=== PATIENT | female | born 1955 | race Caucasian/White ===

== ENCOUNTER 2016-11-02 18:57 | Inpatient (IN) | payer MEDICAID ==
[~2016-11-02] VITALS: Ht 149.9 cm; Wt 100.9 kg
[2016-11-02 19:42] LABS: BASOPHILS 0.2 % (0.0-2.0); EOSINOPHILS 1.6 % (0-7); HEMATOCRIT 37.1 % (36.0-48.0); HEMOGLOBIN 11.8 g/dL (12-16); IMMATURE GRANULOCYTES 0.4 % (0-5); MCH 27.3 pg (26.0-34.0); MCHC 31.8 g/dL (31.0-37.0); MCV 85.7 fL (80.0-100.0); MEAN PLATELET VOLUME 12.4 fL (7.4-10.4); MONOCYTES 8.1 % (2-11); NEUTROPHILS 71.7 % (40-80); PLATELET COUNT 218 10x3/uL (130-400); RBC 4.33 10x6/uL (4.00-5.40); RDW 15.3 % (11.5-14.5); WBC 10.2 10x3/uL (4.8-10.8)
[2016-11-02 19:56] LABS: ALBUMIN 4.1 g/dL (3.4-5.0); ALKALINE PHOSPHATASE 160 U/L (46-116); ALT (SGPT) 20 U/L (10-68); BILIRUBIN - TOTAL 0.64 mg/dL (0.2-1.3); CALC OSMOLALITY 285 mosm/kg (275-300); CALCIUM 8.6 mg/dL (8.5-10.1); CHLORIDE - SERUM 100 mmol/L (98-107); CREATININE - SERUM 0.9 mg/dL (0.6-1.3); GLUCOSE 189 mg/dL (74-106); POTASSIUM - SERUM 3.9 mmol/L (3.5-5.1); SODIUM 139 mmol/L (136-145); UREA NITROGEN 21 mg/dL (7-18); eGFR NON AFRICAN AMERICAN 67 mL/min (90-120)
[2016-11-02 20:07] LABS: MAGNESIUM - SERUM 2.4 mg/dL (1.8-2.4); PHOSPHOROUS 3.3 mg/dL (2.5-4.9); PRO BNP 643 pg/mL (0-125)
[2016-11-02 20:08] LABS: TROPONIN-I < 0.017 ng/mL (0.000-0.060)
[2016-11-02 23:03] LABS: APPEARANCE CLEAR (CLEAR); BILIRUBIN NEGATIVE (NEGATIVE); COLOR YELLOW (YELLOW); GLUCOSE NEGATIVE (NEGATIVE); KETONE NEGATIVE (NEGATIVE); LEUKOCYTE ESTERASE 1+ (NEGATIVE); NITRITE NEGATIVE (NEGATIVE); PROTEIN NEGATIVE (NEGATIVE); UROBILINOGEN NORMAL (NORMAL)
[2016-11-02 23:04] LABS: BACTERIA NONE SEEN /hpf (NONE SEEN); EPITHELIAL CELLS 0-5 /hpf (0-5); RED CELLS - URINE NONE SEEN /hpf (0-5)
--- NOTE | 2016-11-02 23:16 | NUR ---
PT ARRIVED VIA STRETCHER WITH DX OF ASTHMA EXACERBATION. PT STATES FEELING BETTER. TO BR AT THIS TIME. WILL CONTINUE TO MONITOR.
[2016-11-02 23:31] VITALS: BP 177/68; Ht 149.9 cm; Wt 100.9 kg
[2016-11-02] MEDS ORDERED: LIPITOR20 MG PO (23:50)
[2016-11-02] MEDS ORDERED: HYDROCHLOROTHIA25 MG PO (23:50)
[2016-11-02] MEDS ORDERED: KLOR-CON M2020 MEQ PO (23:51)
[2016-11-02] MEDS ORDERED: LASIX40 MG PO (23:51)
[2016-11-02] MEDS ORDERED: COREG 3.1253.125 MG PO (23:52)
[2016-11-02] MEDS ORDERED: ZESTRIL40 MG PO (23:52)
[2016-11-02] MEDS ORDERED: NOVOLOG100 U/M1 SC (23:53)
[2016-11-02] MEDS ORDERED: MOBIC7.5 MG PO (23:54)
[2016-11-02] MEDS ORDERED: GLUCOPHAGE1000 MG PO (23:54)
[2016-11-02 23:55] VITALS: BP 177/68
[2016-11-02] MEDS ORDERED: NEURONTIN600 MG PO (23:55)
[2016-11-02] MEDS ORDERED: LANTUS SOL100 UNIT/1 SC (23:56)
[2016-11-02] MEDS ORDERED: ACCURETIC 20-251 TAB PO (23:57)
--- NOTE | 2016-11-03 00:06 | NUR ---
ADMISSION ASSESSMENT, HISTORY AND HOME MED LIST COMPELTED. PT STATES HAS MINOR CP WITH COUGH. IV TO LFA WITH NS AT 75CC/HR. WILL CONTINUE TO MONITOR. SR UP X2, CALL LIGHT WITHIN REACH.
[2016-11-03 02:15] LABS: CKMB 0.3 U/L (0.0-3.6); CREATINE KINASE 38 UL (21-215)
[2016-11-03 02:28] LABS: TROPONIN-I < 0.017 ng/mL (0.000-0.060)
--- NOTE | 2016-11-03 02:28 | NUR ---
PT RESTING WITH EYES CLOSED. RESP EVEN AND REGULAR. SR UP X2, CALL LIGHT WITHIN REACH.
[2016-11-03 04:00] VITALS: BP 145/70
--- NOTE | 2016-11-03 04:20 | NUR ---
PT AWAKE; STATES CHEST IS SORE AFTER COUGHING. WILL CONTINUE TO MONITOR.
--- NOTE | 2016-11-03 06:20 | NUR ---
VSS. PT DENIED ANYTHING EXCEPT CHEST SORENESS WITH COUGHING. AM FSBS 327. NEEDS MET; WILL CONTINUE TO MONITOR.
[2016-11-03 07:34] VITALS: BP 198/74
[2016-11-03 07:53] LABS: CKMB 0.2 U/L (0.0-3.6); CREATINE KINASE 38 UL (21-215)
[2016-11-03 07:54] LABS: TROPONIN-I < 0.017 ng/mL (0.000-0.060)
--- NOTE | 2016-11-03 11:00 | NUR ---
ALERT AND ORIENTED X4. AT BEDSIDE. SHOWER AND LINEN CHANGE COMPLETE. RT ANKLE CUT FROM SHAVING. CLEAN WOUND AND DRESSING PLACED. DENIES PAIN. SOB TREATED WITH 2L NC. LT FA IV INFUSING NS @ 75mL/HR. CONTINUE PLAN OF CARE. BED LOCKED AND LOW. CALL LIGHT IN REACH. TWO SIDERAILS UP.
[2016-11-03 11:36] VITALS: BP 156/65
[2016-11-03 11:44] LABS: T4 THYROXINE 11.2 ug/dL (4.7-13.3); THYROID STIMULATING HORMONE 0.48 uIU/mL (0.36-3.74)
[2016-11-03 14:00] LABS: CKMB 0.7 U/L (0.0-3.6); CREATINE KINASE 77 UL (21-215)
[2016-11-03 14:01] LABS: TROPONIN-I < 0.017 ng/mL (0.000-0.060)
[2016-11-03 15:32] VITALS: BP 149/74
--- NOTE | 2016-11-03 16:37 | NUR ---
ALERT AND ORIENTED X4. COMPLAINS OF FEELING DIZZY. O2 98% RA. FAMILY AT BEDSIDE. INSTRUCT TO CALL FOR HELP WHEN OOB TO PREVENT FALLING. FSBS 460 TREAT WITH 20 UNITS OF INSULIN. ORDER LAB GLUCOSE PER PROTOCOL. CONTINUE TO MONITOR. CONTINUE PLAN OF CARE AND SAFETY PRECAUTIONS.
--- NOTE | 2016-11-03 17:40 | NUR ---
SPOKE WITH REGARDING SERUM GLUCOSE FROM LAB OF 456. SOLUMEDROL IV CHANGED FROM 125mg TO 60mg PER . RECHECK FSBS IN 1 HOUR. RESTING IN BED. FAMILY AT BEDSIDE. DENIES SOB. COMPLAINS OF DIZZINESS WHEN SITTING UP. ENCOURAGE LAYING IN BED TO REST. CONTINUE TO MONITOR. CONTINUE PLAN OF CARE AND SAFETY PRECAUTIONS.
--- NOTE | 2016-11-03 18:37 | NUR ---
FSBS RECHECK READS 434. 20 UNITS OF HUMALOG ADMINISTERED PER 'S ORDER VIA TELEPHONE. CONTINUE PLAN OF CARE. PREPARE SHIFT CHANGE REPORT.
[2016-11-03 20:02] VITALS: BP 145/65
--- NOTE | 2016-11-03 21:37 | NUR ---
INITIAL ROUNDS COMPLETED AT 1910 HRS. FAMILY AT BEDSIDE. PT TEARFUL REGARDING HER OWN HEALTH AND FAMILY DYNAMICS. EMOTIONAL SUPPORT GIVEN. ASSESSMENT COMPLETED AT 1950. VSS. IV TO LFA WITH NS AT 75CC/HR. IV PATENT. LUNGS DIMINISHED IN BASES BILAT. TRACE PEDAL EDEMA NOTED. PM FSBS 363. HUMALOG 16 UNITS GIVEN SUB-Q TO UPPER R ARM. SCHEDULED LANTUS AND PM PO MEDS GIVEN. NORCO GIVEN FOR C/O CHEST SORENESS. PM SNACK SERVED. PT CURRENTLY WATCHING TV. WILL CONTINUE TO MONITOR.
--- NOTE | 2016-11-03 22:46 | NUR ---
PT AWAKE; WORRIED ABOUT FAMILY MATTERS. EMOTIONAL SUPPORT GIVEN. WILL CONTINUE TO MONITOR.
--- NOTE | 2016-11-04 00:08 | NUR ---
PT AWAKE; CONTINUES TO BE UPSET ABOUT FAMILY ISSUES. EMOTIONAL SUPPORT GIVEN. WILL CONTINUE TO MONITOR.
[2016-11-04 01:24] VITALS: BP 103/40
--- NOTE | 2016-11-04 02:29 | NUR ---
PT RESTING WITH EYES CLOSED. RESP EVEN AND REGULAR. SR UP X2, CALL LIGHT WITHIN REACH.
--- NOTE | 2016-11-04 04:31 | NUR ---
PT BLEEDING POST AM LAB DRAWN. PRESSURE DRESSING APPLIED. FLOOR CLEANED AND BED LINENS CHANGED. WILL CONTINUE TO MONITOR.
[2016-11-04 04:41] LABS: BASOPHILS 0 % (0.0-2.0); EOSINOPHILS 0 % (0-7); HEMATOCRIT 33.9 % (36.0-48.0); HEMOGLOBIN 10.7 g/dL (12-16); IMMATURE GRANULOCYTES 0.3 % (0-5); LYMPHOCYTES 7.7 % (15-50); MCH 26.8 pg (26.0-34.0); MCHC 31.6 g/dL (31.0-37.0); MEAN PLATELET VOLUME 12.2 fL (7.4-10.4); MONOCYTES 3.6 % (2-11); NEUTROPHILS 88.4 % (40-80); PLATELET COUNT 191 10x3/uL (130-400); RBC 3.99 10x6/uL (4.00-5.40); RDW 15.6 % (11.5-14.5); WBC 11.8 10x3/uL (4.8-10.8)
[2016-11-04 04:55] LABS: CALCIUM 7.7 mg/dL (8.5-10.1); CARBON DIOXIDE 28.8 mmol/L (21.0-32.0); CHLORIDE - SERUM 103 mmol/L (98-107); CREATININE - SERUM 0.8 mg/dL (0.6-1.3); POTASSIUM - SERUM 4.3 mmol/L (3.5-5.1); SODIUM 139 mmol/L (136-145); eGFR NON AFRICAN AMERICAN 77 mL/min (90-120)
[2016-11-04 04:56] LABS: CALC OSMOLALITY 293 mosm/kg (275-300); GLUCOSE 275 mg/dL (74-106); UREA NITROGEN 30 mg/dL (7-18)
--- NOTE | 2016-11-04 06:01 | NUR ---
VSS THROUGHOUT NIGHT. PT LESS ANXIOUS THIS AM. NEEDS MET; WILL CONTINUE TO MONITOR.
[2016-11-04 06:26] VITALS: BP 140/69
--- NOTE | 2016-11-04 07:00 | HP ---
PATIENT: NGA LEWIS MEDICAL RECORD: [id number] ACCOUNT: [id number] LOCATION:[address] : [birth year] ADMISSION DATE: 11/03/16 HISTORY AND PHYSICAL EXAMINATION DATE OF ADMISSION: 11/02/2016 HISTORY OF PRESENT ILLNESS: The patient is a 61-year-old female, who states for the last 2-3 weeks, she has had increasing shortness of breath. She presented to the Emergency Room where it was felt that the patient should be admitted. The patient was admitted to my service on an unassigned medicine. PAST MEDICAL HISTORY: Significant that she has had morbid obesity. She has had a hysterectomy. She has had a cholecystectomy. She has had fibromyalgia. History of diabetes mellitus, atypical chest pain. She has had a history of urinary tract infection, osteoarthritis of the knees, history of depression. FAMILY HISTORY: Noncontributory. ALLERGIES: DARVOCET WELL MORPHINE. MEDICATIONS: She was on Humalog subcutaneous solution, metformin 1000 mg p.o. b.i.d., Neurontin 600 one p.o. b.i.d., Lasix 40 mg once daily, lisinopril 40 mg daily, hydrochlorothiazide 25 mg 1 p.o. q. day, meloxicam 15 mg once a day, Accuretic 25/21 p.o. q. day. HABITS: None. REVIEW OF SYSTEMS: CONSTITUTIONAL: She denies any headaches, seizures, or syncope. She denied change in visual or auditory acuity. PULMONARY: She has reported having cough, congestion, yellow sputum production. CARDIOVASCULAR: She has had no chest pain, palpitation, PND or orthopnea. GASTROINTESTINAL: No chronic nausea, vomiting, melena or hematochezia. GENITOURINARY: No urgency, frequency, or dysuria. PHYSICAL EXAMINATION: GENERAL: She is a morbidly obese female, whose BMI is 43, her weight is 213. VITAL SIGNS: Her temperature is 97, her pulse 66, respirations 20, 93% on room air, blood pressure 141/69. HEENT: Head is normocephalic. No lesions. Ears: TMs clear. Eyes: Pupils are equal, round and reactive to light. Her extraocular movements intact. Nasal cavity, oral cavity and oropharynx clear. NECK: Supple. There is no adenopathy. HEART: Has a regular rate. LUNGS: She has some decreased breath sounds in all monhaan. ABDOMEN: Soft, bowel sounds are positive. No organomegaly. LOWER EXTREMITIES: 1+ edema. IMAGING: Chest x-ray showed no cardiopulmonary disease. LABORATORY DATA: Cardiac enzymes were unremarkable. She had a blood sugar of 327, her BUN was 21, creatinine 0.9. Sodium 139, potassium 3.9, chloride 100, CO2 was 32. White blood cell count is 10.2, hemoglobin ____, hematocrit is 37.1, and platelets are 218. She had a proBNP of 643, alkaline phosphatase HISTORY AND PHYSICAL [id number] NGA LEWIS MAICOL slightly elevated at 160. Urinalysis shows 5-10 wbc's per high power field. ASSESSMENT: 1. Morbid obesity. 2. History of congestive heart failure. 3. Diabetes mellitus. 4. Hypertension. 5. Depression. PLAN: The patient is admitted. We will culture her urine also will culture sputum. She may given updraft therapy as well as Lasix IV, O2 supplementation. Continue to evaluate. TRANSINT:[id number] Voice Confirmation ID: [id number] DOCUMENT ID: [id number] JOJO HINOJOSA MD at 0700 CC: [id number] DICTATION DATE: 11/03/16 1035 KLYSTROM TUBE TESTER: 11/03/16 [address] [place] [address]
--- NOTE | 2016-11-04 07:28 | NUR ---
ASSESSMENT COMPLETED. NO TELEMERTY. O2 AT 2 L/M PER NC. LEFT FA SL. DENIES ANY NEEDS. CALL LIGHT IN REACH WITH SR UP. WILL MONITOR
[2016-11-04 07:43] VITALS: BP 118/55
--- NOTE | 2016-11-04 08:28 | NUR ---
RESTING QUIETLY DENIES ANY NEEDS NAD NOTED
[2016-11-04 12:07] VITALS: BP 130/61
--- NOTE | 2016-11-04 14:28 | NUR ---
UP IN BEDSIDE CHAIR. NO NEEDS VOICED. CALL LIGHT IN REACH. FAMILY AT BEDSIDE. WILL MONITOR
[2016-11-04 16:15] VITALS: BP 131/68
--- NOTE | 2016-11-04 16:46 | NUR ---
Patient Name: NGA LEWIS Admission Status: ER Accout number: [id number] Admission Date: 11-03-2016 : 1955 Admission Diagnosis: Attending: ELIGIO Current LOS: 1 Anticipated DC Date: Planned Disposition: Home Primary Insurance: MEDICAID [place] Discharge Planning Comments: * Is the patient Alert and Oriented? Yes 0 * How many steps to enter\exit or inside your home? 4 OUT/3 IN 0 * PCP [facility], [facility] 0 * Pharmacy [facility] [address] 0 * Preadmission Environment Home with Family 0 * ADLs Independent 0 * Equipment Cane Glucometer Walker 0 * Other Equipment NO MEDICAL EQUIPMENT PROVIDER PREFERENCE 0 * List name and contact numbers for known caregivers / representatives who currently or will assist patient after discharge: FAVIOLA MONREAL, DAUGHTER, COLIN LEWIS, SPOUSE, 0 * Community resources currently utilized None 0 * Please name any agencies selected above. NONE 0 * Additional services required to return to the preadmission environment? No 0 * Can the patient safely return to the preadmission environment? Yes 0 * Has this patient been hospitalized within the prior 30 days at any hospital? No 0 CM MET WITH PT IN ROOM TO DISCUSS DISCHARGE PLANNING AND NEEDS. PT REPORTS LIVING AT HOME INDEPENDENTLY WITH HER SPOUSE. PT HAS A CANE, GLUCOMETER AND WALKER WITH NO MEDICAL EQUIPMENT PROVIDER PREFERENCE. PT HAS NO OUTSIDE SERVICES ASSISTING IN THE HOME. CM DISCUSSED AVAILABILITY OF HOME HEALTH, REHAB SERVICES AND MEDICAL EQUIPMENT. PT DENIES DISCHARGE NEEDS, REPORTS HER SPOUSE OR DAUGHTER WILL PICK HER UP FOR DISCHARGE HOME. PT DENIES DISCHARGE NEEDS, PLANS TO DISCHARGE HOME WITH SPOUSE. CM TO FOLLOW AND ASSIST NEEDED. Carton Stenciler: Rory Gusman
--- NOTE | 2016-11-04 17:21 | NUR ---
UP ON SIDE OF BED FORDINNER. DENIES ANY NEEDS. CALL LIGHT IN REACH WITH SR UP
--- NOTE | 2016-11-04 19:40 | NUR ---
ASSESSMENT COMPLETE, A&O. PT AMBULATING IN ROOM. 02 AT 2 LITER VIA NC. IV TO LEFT ARM SL. SITE CLEAN AND DRY. PT DENIES NEEDS, WILL CONT TO MONITOR.
[2016-11-04 20:00] VITALS: BP 120/49
--- NOTE | 2016-11-04 20:57 | NUR ---
HS MEDS GIVEN WITH FRESH ICE WATER. BS COVERED PER S/S. ASKEDPT IF SHE NEEDED A PAIN PILL, PT DECLINED AT THIS TIME, STATING THAT MAYBE SHE WILL TAKE IT LATER.
[2016-11-05] VITALS: BP 117/58
--- NOTE | 2016-11-05 00:30 | NUR ---
REEL AND REWINDER OPERATOR AT BEDSIDE FOR VS. NEEDS ADDRESSED. CALL LIGHT IN REACH. WILL CONT TO MONITOR.
[2016-11-05 04:00] VITALS: BP 133/64
[2016-11-05 05:11] LABS: BASOPHILS 0 % (0.0-2.0); EOSINOPHILS 0 % (0-7); HEMATOCRIT 34.9 % (36.0-48.0); HEMOGLOBIN 10.8 g/dL (12-16); IMMATURE GRANULOCYTES 0.8 % (0-5); MCH 26.5 pg (26.0-34.0); MCHC 30.9 g/dL (31.0-37.0); MCV 85.5 fL (80.0-100.0); MEAN PLATELET VOLUME 12.6 fL (7.4-10.4); MONOCYTES 6.8 % (2-11); NEUTROPHILS 84.4 % (40-80); RBC 4.08 10x6/uL (4.00-5.40); RDW 16.2 % (11.5-14.5); WBC 14.3 10x3/uL (4.8-10.8)
[2016-11-05 05:20] LABS: PLATELET COUNT 231 10x3/uL (130-400)
[2016-11-05 05:52] LABS: ANION GAP 13.2 mmol/L (8-16); CALCIUM 7.6 mg/dL (8.5-10.1); CARBON DIOXIDE 27.8 mmol/L (21.0-32.0); CREATININE - SERUM 0.9 mg/dL (0.6-1.3)
--- NOTE | 2016-11-05 07:00 | NUR ---
RECEIVED REPORT. ASSUMED CARE OF PATIENT. PATIENT UP AMBULATING IN ROOM. DENIES NEEDS THIS AM. PATIENT TO BE DISCHARGED THIS AM. RESP EVEN AND UNLABORED. NO DISTRESS.
[2016-11-05] MEDS ORDERED: COREG12.5 MG PO (07:02)
[2016-11-05] MEDS ORDERED: MEDROL DOSE PACK4 MG PO (07:04)
[2016-11-05] MEDS ORDERED: CEFUROXIME250 MG PO (07:05)
[2016-11-05] MEDS ORDERED: BREO ELLIPTA 11 EACH INH (07:07)
[2016-11-05] MEDS ORDERED: PROAIR HFA8.5 GM INH (07:07)
[2016-11-05 08:01] VITALS: BP 115/57
--- NOTE | 2016-11-05 11:47 | NUR ---
FSBS 257. 10 UNITS HUMALOG ADMINISTERED PER SLIDING SCALE. NO DISTRESS.
--- NOTE | 2016-11-05 12:13 | NUR ---
20 GAUGE IV REMOVED FROM LEFT WRIST. CATHETER TIP INTACT. PRESSURE HELD FOR 30 SECONDS. NO BLEEDING FROM SITE. 2X2 GAUZE APPLIED AND SECURED WITH TAPE. DISCHARGE INSTRUCTIONS PROVIDED TO PATIENT HER DAUGHTER IS ALSO AT BEDSIDE AT THIS TIME. VERBALIZED UNDERSTANDING OF ALL INSTRUCTIONS PROVIDED. PATIENT REQUESTING TO CONSUME HER LUNCH PRIOR TO LEAVING HOSPITAL. PATIENT SITTING TO CHAIR AT BEDSIDE CONSUMING NOON MEAL AT THIS TIME. NO DISTRESS.
--- NOTE | 2016-11-05 13:12 | NUR ---
PATIENT LEFT UNIT VIA WHEELCHAIR AT THIS TIME WITH ALL PERSONAL BELONGINGS. PATIENT DISCHARGED TO HOME WITH FAMILY AT THIS TIME. NO DISTRESS UPON LEAVING UNIT AT THIS TIME.
--- NOTE | 2016-11-05 21:24 | NUR ---
LATE ENTRY: REALIZED THAT HAD NOT TAKEN NORCO THAT HAD BEEN OFFERED TO HER THE PREVIOUS NIGHT, RETURNED TO [facility] AND CREDITED BACK TO PT.
--- NOTE | 2016-11-07 07:01 | DS ---
PATIENT:NGA LEWIS :55 MEDICAL RECORD: [id number] DISCHARGE SUMMARY ADMISSION DATE: 11/03/16 DISCHARGE DATE: 11/05/16 DATE OF ADMISSION: 11/03/2016. DATE OF DISCHARGE: 11/05/2016. CONDITION ON DISCHARGE: Improved. ADMITTING DIAGNOSES: Shortness of breath secondary to asthma exacerbation, morbid obesity, history of congestive heart failure, diabetes mellitus, hypertension, and depression. DISCHARGE DIAGNOSES: Shortness of breath secondary to asthma exacerbation, morbid obesity, history of congestive heart failure, diabetes mellitus, hypertension, and depression. HOSPITAL COURSE: The patient is a 61-year-old female, who has presented complaining 2-3 weeks history of increasing shortness of breath. She presented to the Emergency Room where it was felt the patient wanted admission. The patient is admitted to my service on an unassigned medicine. PHYSICAL EXAMINATION: GENERAL: Morbidly obese, white female, whose BMI is 43, her weight is 213, height 5 feet 9 inches. VITAL SIGNS: Her temperature was 97, her pulse 66, respirations 20, and O2 sat was 93% on room air, blood pressure 141/69. HEENT: Normal. NECK: Supple. There is no adenopathy. HEART: Has a regular rate. LUNGS: She has decreased breath sounds in all monahan, some end-expiratory wheezing present. LOWER EXTREMITIES: Have 1+ edema. DIAGNOSTIC DATA: Chest x-ray showed no cardiac or pulmonary disease. LABORATORY DATA: The patient's blood sugar was elevated at 327, BUN is 21 and creatinine 0.1. Sodium was 139, potassium 3.9. White count was 10.2. The patient was administered on Rocephin. She was also given IV Lasix, placed on Solu-Medrol, Humalog sliding scale along with her Lantus 50 units subQ b.i.d. The patient had an echocardiogram. Echocardiogram revealed left ventricular size to be within normal limits. Systolic function was normal. Overall, ejection fraction 60%. Left atrium is upper limits and normal right atrium, right ventricle mildly dilated. No evidence of pericardial effusion or left ventricular thrombus. The patient's condition slowly improved. She had a good diuresis. On the , the patient was stable. Her O2 sat was 100% on 2 liters. This was discontinued and should maintained on 95%. Her blood pressure 133/64, pulse 60, respirations 18 and she was without any complaints. The patient was therefore discharged. DISCHARGE INSTRUCTIONS: She will be on a 2200 calorie ADA diet, a 50 ounce daily fluid restriction. ACTIVITIES: Ad musa. Follow up with primary care physician within 3 days. DISCHARGE SUMMARY REPORT [id number] NGA LEWIS MEDICATIONS: Include Coreg 12.5 p.o. b.i.d. She would be placed on Medrol Dosepak in a decreasing manner, Ceftin 250 b.i.d. for 7 days, ProAir HFA 90 mcg 2 puffs q.4 hours p.r.n. shortness of breath, Breo Ellipta 1 puff b.i.d., atorvastatin 20 mg once a day, Lasix 40 mg once a day, KCl 20 mEq once a day, lisinopril 20 mg once a day. She will also be on her Lantus sliding scale 50 subQ b.i.d. along with NovoLog sliding scale, meloxicam 7.5 mg 1 p.o. q. day p.r.n. pain, gabapentin 600 mg t.i.d. TRANSINT:[id number] Voice Confirmation ID: [id number] DOCUMENT ID: [id number] JOJO HINOJOSA MD at 0701 CC: [id number] DICTATION DATE: 11/05/16712 DRIVING TEACHER: 11/05/16 1122 DIS IN 11/05/16 [facility] [address] [place] [address]
--- NOTE | 2016-11-08 08:47 | EC ---
PATIENT:NGA LEWIS DATE OF SERVICE: 11/03/16 SEX: F MEDICAL RECORD: [id number] DATE OF : [birth year] LOCATION:D. D.212 AGE OF PATIENT: 61 ADMISSION DATE: 11/03/16 REFERRING PHYSICIAN: INTERPRETING PHYSICIAN: DARY ANDERSON MD ECHOCARDIOGRAM REPORT ECHO CHARGES 4 ECHO COMPLETE CLINICAL DIAGNOSIS: SOB/DEPENDANT EDEMA ECHOCARDIOGRAPHIC MEASUREMENTS (adult normal given) AC root (d.<3.7cm) 3.1 LV Septum d (<1.2 cm> 1.5 Valve Excursion 1.4 LV Septum (systole) 1.8 Left Atria (s.<4.0cm> 4.0 LVPW d(<1.2cm) 1.2 RV (d.<2.3cm) 3.7 LVPW (sytole) 1.5 LV diastole(<5.6CM) 5.6 MV E-F(>70mm/sec) LV systole 3.5 LVOT Diameter 1.9 MV exc.(>10mm) 1.1 Est.ejection fraction (50-75%) Pericardial Effusion N DOPPLER: LVIT A 94.0 E 145 LA RVSP 51 LVOT 142 AOP1/2T Asc. Ao 196 RVOT 120 RA PA 172 AV Gradient Peak 15.32 AV Mean 7.4 AV Area 2.3 MV Gradient Peak 13.41 MV Mean 4.31 MV Area COMMENTS: Sql Database Programmer: Elda WANG Steam Table Attendant:Pam Anderson TAPE# PACS DATE OF SERVICE: 11/03/2016 Echocardiogram FINDINGS: 1. Left ventricular chamber size is within normal limits. Left ventricular systolic function is normal. Overall ejection fraction estimated at 60%. 2. Left atrium is upper limits of normal at 4.0 cm. Right atrium and right ventricular chamber sizes are mildly dilated. 3. Valvular structures: Aortic valve demonstrates mild calcific aortic ECHOCARDIOGRAM REPORT [id number] NGA LEWIS stenosis, valve area calculated 2.3 cm squared. There is a gradient of 15 mm across the valve. The remaining valvular structures have normal structure and motion. 4. Doppler interrogation reveals mild aortic insufficiency, mild mitral regurgitation, moderate tricuspid regurgitation, no other valvular insufficiency or stenosis. Pulmonary systolic pressure is elevated estimated at 51 mmHg. 5. No evidence of pericardial effusion or left ventricular thrombus. TRANSINT:[id number] Voice Confirmation ID: [id number] DOCUMENT ID: [id number] DARY ANDERSON MD at 0847 CC: [id number] DICTATION DATE: 11/04/16 1112 INTERVENTIONIST: 11/04/16 1156 DIS IN 11/05/16 [place] [id number] [place] [id number]
== END 2016-11-05 13:15 | disposition home or self-care (01) | DRG 202 ==
LOC: D.ER 18:57 → D.M2 22:00 → OBSVTIME 22:00 → D.M2 22:00
PROVIDERS: Surgery; ADMIT Family Medicine
DX: J45.901 Unspecified asthma with (acute) exacerbation (principal); Z68.41 Body mass index [BMI] 40.0-44.9, adult; I11.0 Hypertensive heart disease with heart failure; I50.9 Heart failure, unspecified; E66.01 Morbid (severe) obesity due to excess calories; E11.9 Type 2 diabetes mellitus without complications; Z79.4 Long term (current) use of insulin; F32.9 Major depressive disorder, single episode, unspecified; M79.7 Fibromyalgia

== ENCOUNTER 2017-02-07 20:00 | Emergency (ER) | payer MEDICAID ==
[2016-11-02 23:31] VITALS: BMI 43.9
[~2017-02-07 20:00] MED LIST: ACCURETIC 20-251 TAB PO; BREO ELLIPTA 11 EACH INH; CEFUROXIME250 MG PO; COREG 3.1253.125 MG PO; COREG12.5 MG PO; GLUCOPHAGE1000 MG PO; HYDROCHLOROTHIA25 MG PO; KLOR-CON M2020 MEQ PO; LANTUS SOL100 UNIT/1 SC; LASIX40 MG PO; LIPITOR20 MG PO; MEDROL DOSE PACK4 MG PO; MOBIC7.5 MG PO; NEURONTIN600 MG PO; NOVOLOG100 U/M1 SC; PROAIR HFA8.5 GM INH; ZESTRIL40 MG PO
[2017-02-07 20:56] LABS: BASOPHILS 0.2 % (0-2); EOSINOPHILS 1.6 % (0-7); HEMATOCRIT 35.5 % (36.0-48.0); HEMOGLOBIN 10.7 g/dL (12-16); IMMATURE GRANULOCYTES 0.2 % (0-5); LYMPHOCYTES 17.8 % (15-50); MCH 26.1 pg (26.0-34.0); MCHC 30.1 g/dL (31.0-37.0); MCV 86.6 fL (80.0-100.0); MEAN PLATELET VOLUME 11.7 fL (7.4-10.4); MONOCYTES 9.4 % (2-11); NEUTROPHILS 70.8 % (40-80); PLATELET COUNT 235 10x3/uL (130-400); RDW 15.8 % (11.5-14.5); WBC 8.1 10x3/uL (4.8-10.8)
[2017-02-07 21:14] LABS: ALBUMIN 3.6 g/dL (3.4-5.0); ALKALINE PHOSPHATASE 146 U/L (46-116); ALT (SGPT) 17 U/L (10-68); BILIRUBIN - TOTAL 0.59 mg/dL (0.2-1.3); CALCIUM 8.6 mg/dL (8.5-10.1); CARBON DIOXIDE 26.9 mmol/L (21.0-32.0); CHLORIDE - SERUM 104 mmol/L (98-107); CREATININE - SERUM 0.9 mg/dL (0.6-1.3); POTASSIUM - SERUM 4.2 mmol/L (3.5-5.1); PROTEIN - SERUM 7.3 g/dL (6.4-8.2); SODIUM 141 mmol/L (136-145); UREA NITROGEN 18 mg/dL (7-18); eGFR NON AFRICAN AMERICAN 67 mL/min (90-120)
[2017-02-07 21:20] LABS: PRO BNP 789 pg/mL (0-125)
[2017-02-07 21:21] LABS: CALC OSMOLALITY 283 mosm/kg (275-300); GLUCOSE 124 mg/dL (74-106); TROPONIN-I < 0.017 ng/mL (0.000-0.060)
== END 2017-02-08 00:48 | disposition home or self-care (01) ==
LOC: D.ER 20:00
PROVIDERS: Emergency Medicine
DX: R06.00 Dyspnea, unspecified (principal); J44.1 Chronic obstructive pulmonary disease with (acute) exacerbation; E11.9 Type 2 diabetes mellitus without complications; I10 Essential (primary) hypertension

== ENCOUNTER 2017-02-24 15:00 | Inpatient (IN) | payer MEDICAID ==
[~2017-02-24] VITALS: Ht 149.9 cm; Wt 97.5 kg
[2017-02-24 17:06] LABS: BASOPHILS 0.3 % (0-2); EOSINOPHILS 1.6 % (0-7); HEMATOCRIT 34.7 % (36.0-48.0); HEMOGLOBIN 10.6 g/dL (12-16); IMMATURE GRANULOCYTES 0.1 % (0-5); LYMPHOCYTES 17.4 % (15-50); MCH 26.4 pg (26.0-34.0); MCHC 30.5 g/dL (31.0-37.0); MCV 86.3 fL (80.0-100.0); MEAN PLATELET VOLUME 11.7 fL (7.4-10.4); NEUTROPHILS 70.6 % (40-80); PLATELET COUNT 215 10x3/uL (130-400); RBC 4.02 10x6/uL (4.00-5.40); RDW 16.4 % (11.5-14.5); WBC 6.8 10x3/uL (4.8-10.8)
[2017-02-24 17:16] LABS: APPEARANCE CLEAR (CLEAR); BILIRUBIN NEGATIVE (NEGATIVE); COLOR YELLOW (YELLOW); GLUCOSE NEGATIVE (NEGATIVE); KETONE NEGATIVE (NEGATIVE); LEUKOCYTE ESTERASE 2+ (NEGATIVE); NITRITE NEGATIVE (NEGATIVE); PROTEIN NEGATIVE (NEGATIVE); SPECIFIC GRAVITY 1.025 (1.005-1.020); UROBILINOGEN NORMAL (NORMAL)
[2017-02-24 17:17] LABS: BACTERIA MANY /hpf (NONE SEEN); WHITE CELLS - URINE >50 /hpf (0-5)
[2017-02-24 17:46] LABS: ALBUMIN 3.6 g/dL (3.4-5.0); ALKALINE PHOSPHATASE 152 U/L (46-116); ALT (SGPT) 23 U/L (10-68); BILIRUBIN - TOTAL 0.63 mg/dL (0.2-1.3); CALC OSMOLALITY 290 mosm/kg (275-300); CARBON DIOXIDE 30.5 mmol/L (21.0-32.0); CHLORIDE - SERUM 104 mmol/L (98-107); CREATININE - SERUM 0.8 mg/dL (0.6-1.3); GLUCOSE 170 mg/dL (74-106); POTASSIUM - SERUM 4.4 mmol/L (3.5-5.1); PROTEIN - SERUM 6.9 g/dL (6.4-8.2); SODIUM 143 mmol/L (136-145); UREA NITROGEN 19 mg/dL (7-18); eGFR NON AFRICAN AMERICAN 77 mL/min (90-120)
[2017-02-24 20:25] LABS: APTT 30.8 SECONDS (22.8-39.4); INR 1.21 (0.85-1.17); PROTIME 15.2 SECONDS (11.6-15.0)
[2017-02-24 22:45] VITALS: BP 127/59; BMI 43.5
[2017-02-25] VITALS (13 sets, daily range): BP systolic 99–144; BP diastolic 44–69; Ht 149.9 cm; Wt 97.5 kg
--- NOTE | 2017-02-25 10:45 | NUR ---
PATIENT BACK FROM PARACENTESIS. PATIENT STATED "I FEEL REALLY WIERD." PATIENT HOLDING HER HAND ON HER HEAD. STATED HER HEAD FEELS "WIERD" SHE STATED HER TONGUE FEELS "HEAVY" LOOKED AT TONGUE, DOES NOT APPEAR TO BE ENLARGED. PATIENT STATED SHE NEEDS TO USE THE BATHROOM, REFUSED TO USE BEDPAN, STATED SHE CAN WALK TO THE BATHROOM. WITH MYSELF ON ONE SIDE, AND TRIMMING MACHINE SET UP OPERATOR ON THE OTHER SIDE OF PATIENT WE WALKED WITH HER TO THE BATHROOM. PATIENT IS SITTING ON THE COMMODE SHE STATED SHE WILL PULL THE EMERGENCY LIGHT IN THE BATHROOM AND WAIT FOR ASSISTANCE. STRESSED THE IMPORTANCE OF NOT GETTING UP WITHOUT STAFF. PATIENT VERBALIZED UNDERSTANDING. PATIENT IS WEARING NASAL CANNULA AT 4L/MIN.
--- NOTE | 2017-02-25 11:02 | NUR ---
ASSISTED PATIENT BACK TO BED.
--- NOTE | 2017-02-25 17:37 | NUR ---
PATIENT STATED SHE HAD STOOL IN HER URINE ABOUT 2 YEARS AGO AND SHE SAW THE UROLOGIST FOR THE ISSUE. SHE SAID SHE DOES NOT REMEMBER THE DIAGNOSIS, BUT WAS SUPPOSED TO FOLLOW UP FOR AN INTERVENTION BUT DUE TO INSURANCE ISSUES, DID NOT FOLLOW UP.
--- NOTE | 2017-02-25 17:42 | NUR ---
TOLD PATIENT THAT I HAVE AN ORDER TO PUT A CATHETER IN, SHE IS EATING DINNER. TOLD PATIENT TO CALL WHEN SHE GETS FINISHED EATING SO THAT I CAN PUT IN THE CATHETER.
--- NOTE | 2017-02-25 18:30 | NUR ---
APPLIED SCDS TO BILATERAL LEGS
[2017-02-25 18:44] LABS: APPEARANCE CLEAR (CLEAR); BILIRUBIN NEGATIVE (NEGATIVE); COLOR YELLOW (YELLOW); GLUCOSE NEGATIVE (NEGATIVE); KETONE NEGATIVE (NEGATIVE); LEUKOCYTE ESTERASE TRACE (NEGATIVE); NITRITE NEGATIVE (NEGATIVE); PROTEIN NEGATIVE (NEGATIVE); SPECIFIC GRAVITY 1.025 (1.005-1.020); UROBILINOGEN NORMAL (NORMAL)
[2017-02-25 18:45] LABS: BACTERIA FEW /hpf (NONE SEEN); EPITHELIAL CELLS 0-5 /hpf (0-5); RED CELLS - URINE 0-5 /hpf (0-5); WHITE CELLS - URINE 0-5 /hpf (0-5)
[2017-02-26] VITALS: BP 128/55
[2017-02-26 05:09] LABS: BASOPHILS 0.2 % (0-2); EOSINOPHILS 2.8 % (0-7); HEMATOCRIT 33.7 % (36.0-48.0); HEMOGLOBIN 10.5 g/dL (12-16); IMMATURE GRANULOCYTES 0.2 % (0-5); MCH 26.6 pg (26.0-34.0); MCHC 31.2 g/dL (31.0-37.0); MCV 85.5 fL (80.0-100.0); MEAN PLATELET VOLUME 11.6 fL (7.4-10.4); MONOCYTES 10.6 % (2-11); NEUTROPHILS 65.2 % (40-80); PLATELET COUNT 223 10x3/uL (130-400); RBC 3.94 10x6/uL (4.00-5.40); RDW 16.2 % (11.5-14.5); WBC 5.8 10x3/uL (4.8-10.8)
[2017-02-26 05:30] LABS: ALBUMIN 2.9 g/dL (3.4-5.0); ALKALINE PHOSPHATASE 140 U/L (46-116); ALT (SGPT) 21 U/L (10-68); CALC OSMOLALITY 291 mosm/kg (275-300); CALCIUM 7.8 mg/dL (8.5-10.1); CARBON DIOXIDE 30.5 mmol/L (21.0-32.0); CHLORIDE - SERUM 106 mmol/L (98-107); CREATININE - SERUM 0.8 mg/dL (0.6-1.3); GLUCOSE 155 mg/dL (74-106); POTASSIUM - SERUM 3.9 mmol/L (3.5-5.1); SODIUM 144 mmol/L (136-145); UREA NITROGEN 17 mg/dL (7-18); eGFR NON AFRICAN AMERICAN 77 mL/min (90-120)
--- NOTE | 2017-02-26 06:43 | NUR ---
2100) UP AND ABOUT IN ROOM.STATES DOES NOT LIKE ZUNIGA CATH. URINE STRAW YELLOW SL. CONCENTRATED.STATES HAD ONE BM EARLIER.WILL CONTINUE TO MONITOR AND FOLLW CURRENT PLAN OF CARE
--- NOTE | 2017-02-26 07:15 | NUR ---
PATIENT RECEIVED SITTING UP ON SIDE OF BED ALERT. NO SIGNS OF DISTRESS NOTED. DENIES NEEDS. BED IN LOW POSITION. CALL LIGHT IN REACH.
[2017-02-26 07:58] VITALS: BP 116/57
--- NOTE | 2017-02-26 09:25 | NUR ---
PATIENT SITTING UP ON SIDE OF BED ALERT. NO SIGNS OF DISTRESS NOTED. IV TO RIGHT WRIST SALINE LOCKED. SCHEDULED MEDICATION ADMINISTERED. ZNUIGA CARE PROVIDED. ZUNIGA CATH D/C. MEASURING HAT PLACED IN TOILET. EXPLAINED TO PATIENT WE WOULD CONTINUE TO MONITOR OUTPUT. STATES UNDERSTANDING. DENIES NEEDS. BED IN LOW POSITION. CALL LIGHT IN REACH.
--- NOTE | 2017-02-26 09:47 | NUR ---
* Is the patient Alert and Oriented? Yes 0 * How many steps to enter\exit or inside your home? 3 0 * PCP [facility] 0 * Pharmacy [facility] 0 * Preadmission Environment Home with Family 0 * ADLs Independent 0 * Equipment CPAP Rolling Walker 0 * List name and contact numbers for known caregivers / representatives who currently or will assist patient after discharge: LIBBY (SPOUSE)[phone] FAVIOLA (DAUGHTER) 0 * Community resources currently utilized None 0 * Additional services required to return to the preadmission environment? No 0 * Can the patient safely return to the preadmission environment? Yes 0 * Has this patient been hospitalized within the prior 30 days at any hospital? No 0 Grand Total: 0 Patient Name: NGA LEWIS Admission Status: ER Accout number: [id number] Admission Date: 02-24-2017 : 1955 Admission Diagnosis: Attending: MAEGAN Current LOS: 2 Anticipated DC Date: Planned Disposition: Home Primary Insurance: MEDICAID [place] Discharge Planning Comments: CM met with patient to assess discharge planning needs. Patient currently lives with her where she has 3 steps to enter with a rail. She states that her home is safe and that is her planned disposition. Either her or her daughter will be taking her home. She states she has a walker at home that she does not use. She uses a CPAP. Patient refuses home health & denies any needs at this time. CM will continue to follow and assist as needed. PCP: [id number]: Mario Rm Axel (spouse) [phone] [employer]adi[employer] Converter Utility Operator: Antoinette Brenner
--- NOTE | 2017-02-26 10:57 | NUR ---
RECEIVED PATIENT FROM [facility] TO L&D T ROOM FOR PLANNED SPECULUM EXAM BY DR AVILA. PLACED IN BED WITH HOB AT 45 DEGREES FOR BREATHING COMFORT. PORTABLE O2 ON AT 2 L PER NASAL CANULA. SIDE RAILS UP X 2, CALL LIGHT AND TV CONTROLS GIVEN. AWAITING ARRIVAL OF DR AVILA FOR EXAM.
--- NOTE | 2017-02-26 11:38 | NUR ---
PT WAS GENTLY PLACED WITH FEET ON FOOT PADS INSTEAD OF STIRRUPS DUE TO DECREASED ROM AT PATELLA AND HIPS. DR AVILA COMPLETED SSE, VE AND RECTAL EXAM. SHE OBTAINED WET PREP AND VAGINAL CULTURES PRIOR TO EXAM. ASSISTED TO WHEELCHAIR FOR COMFORT AND NOTIFIED MED-SURG STAFF THAT PT IS READY TO RETURN TO HER ROOM.
--- NOTE | 2017-02-26 11:42 | NUR ---
RN HERE. PT TRANSFERRED BACK TO HER ROOM VIA WHEELCHAIR BY MED/SURG STAFF. O2 ON AT 2 LITER PER NC VIA PORTABLE O2 TANK.
--- NOTE | 2017-02-26 12:04 | NUR ---
PATIENT SITTING UP ON SIDE OF BED ALERT. NO SIGNS OF DISTRESS NOTED. ACCU CHECK 157. INSULIN PER SLIDING SCALE. DENIES FURTHER NEEDS. BED IN LOW POSITION. CALL LIGHT IN REACH.
[2017-02-26 12:06] VITALS: BP 112/44
--- NOTE | 2017-02-26 15:00 | NUR ---
IV TO RIGHT WRIST SALINE LOCKED. DENIES NEEDS. FAMILY PRESENT. CALL LIGHT IN REACH.
[2017-02-26 15:36] VITALS: BP 152/51
--- NOTE | 2017-02-26 17:15 | NUR ---
PATIENT SITTING UP ON SIDE OF BED ALERT. NO SIGNS OF DISTRESS NOTED. DENIES NEEDS. BED IN LOW POSITION. CALL LIGHT IN REACH.
--- NOTE | 2017-02-26 19:00 | NUR ---
PATIENT VISITING WITH FAMILY. AAOX4. RR EVEN AND UNLABORED. O2 @ 2L VIA NC. 0 S/S OF DISTRESS. STATES PAIN IS A 2/10. IV TO RIGHT WRIST S/L WITH NO REDNESS OR SWELLING. SCD'S IN ROOM BUT OFF. SRX2. BED LOW. CALL LIGHT WITHIN REACH.
[2017-02-26 20:00] VITALS: BP 116/45
--- NOTE | 2017-02-26 21:40 | NUR ---
NIGHTTIME MEDICATIONS ADMINISTERED. PATIENT REFUSED LANTUS FOR BS OF 158, BUT HUMULIN ADMINISTERED. PATIENT C/O ALLERGIC REACTION TO SOAP. SPOKE WITH DR. MOSS AND ADMINISTERED BENADRYL PER ORDER.
[2017-02-27] VITALS: BP 132/48
[2017-02-27 04:00] VITALS: BP 130/82
[2017-02-27 05:49] LABS: BASOPHILS 0.2 % (0-2); EOSINOPHILS 2.8 % (0-7); HEMATOCRIT 34.2 % (36.0-48.0); HEMOGLOBIN 10.5 g/dL (12-16); IMMATURE GRANULOCYTES 0.2 % (0-5); LYMPHOCYTES 21.1 % (15-50); MCH 26.3 pg (26.0-34.0); MCHC 30.7 g/dL (31.0-37.0); MCV 85.5 fL (80.0-100.0); MEAN PLATELET VOLUME 11.9 fL (7.4-10.4); MONOCYTES 10.7 % (2-11); PLATELET COUNT 252 10x3/uL (130-400); RDW 16.2 % (11.5-14.5); WBC 6.2 10x3/uL (4.8-10.8)
[2017-02-27 06:25] LABS: ALBUMIN 3.1 g/dL (3.4-5.0); ALKALINE PHOSPHATASE 132 U/L (46-116); ALT (SGPT) 22 U/L (10-68); CALC OSMOLALITY 286 mosm/kg (275-300); CALCIUM 7.8 mg/dL (8.5-10.1); CARBON DIOXIDE 28.6 mmol/L (21.0-32.0); CHLORIDE - SERUM 105 mmol/L (98-107); CREATININE - SERUM 0.8 mg/dL (0.6-1.3); GLUCOSE 132 mg/dL (74-106); POTASSIUM - SERUM 3.5 mmol/L (3.5-5.1); PROTEIN - SERUM 6.2 g/dL (6.4-8.2); SODIUM 142 mmol/L (136-145); UREA NITROGEN 17 mg/dL (7-18); eGFR NON AFRICAN AMERICAN 77 mL/min (90-120)
--- NOTE | 2017-02-27 07:35 | NUR ---
PT PIV SALINE LOCKED PER ORDER. PT AWAKE AND ALERT ORIENTED X 3 LUNGS CLAER BIALT. WITH DIMINISHED BASES BILAT. NOTED TO HAVE HYPOACTIVE BOWEL SOUNDS. ABDOMEN DISTENDED AND MODERATELY TENDER TO PALPATION. HAS SMALL INCISION FROM PARACENTESIS RECENT HISTORY.
[2017-02-27 08:00] VITALS: BP 137/64; BP 159/81
[2017-02-27 12:55] VITALS: BP 152/53
--- NOTE | 2017-02-27 13:12 | NUR ---
NUTRITION MONITORING & EVAL CHART REVIEWED. PT TOLERATING ADA DIET WITH 100% INTAKE RECENT MEALS. RD FOLLOWING
--- NOTE | 2017-02-27 13:21 | NUR ---
SITTING ON BEDSIDE AT THIS TIME. ENTIRE CONTENTS OF DILAUDID 1MG WASTED PT STATES THAT DILAUDID MAKES HER ITCH. WASTED WITH ARIELLA QUINTERO A WITNESS. RESPIRATIONS EVEN AND NON LABORED. CALL LIGHT IN REACH AND FAMILY AT BEDSIDE. WILL CONTINUE WITH PLAN OF CARE.
[2017-02-27 15:53] VITALS: BP 137/68
--- NOTE | 2017-02-27 19:45 | NUR ---
PATIENT TAKEN DOWN VIA WHEELCHAIR WITH NURSE AND TO DISCHARGE HOME.
== END 2017-02-27 19:46 | disposition home or self-care (01) | DRG 760 ==
LOC: D.ER 15:00 → D.MS 20:26
PROVIDERS: Emergency Medicine; General Practice; Obstetrics & Gynecology; ADMIT Family Medicine
PROC: 0W9G3ZZ Drainage of Peritoneal Cavity, Percutaneous Approach (ICD-10-PCS; principal; 2017-02-25 11:00)
DX: N81.6 Rectocele (principal); R18.8 Other ascites; Z68.41 Body mass index [BMI] 40.0-44.9, adult; N39.0 Urinary tract infection, site not specified; E11.9 Type 2 diabetes mellitus without complications; Z79.4 Long term (current) use of insulin; R15.9 Full incontinence of feces; R32 Unspecified urinary incontinence

== ENCOUNTER 2017-06-11 15:45 | Emergency (ER) | payer MEDICAID ==
[2017-02-25 13:02] VITALS: BMI 43.4
[2017-06-11 16:46] LABS: APPEARANCE CLEAR (CLEAR); BILIRUBIN NEGATIVE (NEGATIVE); COLOR YELLOW (YELLOW); GLUCOSE NEGATIVE (NEGATIVE); KETONE NEGATIVE (NEGATIVE); LEUKOCYTE ESTERASE NEGATIVE (NEGATIVE); NITRITE NEGATIVE (NEGATIVE); PROTEIN NEGATIVE (NEGATIVE); SPECIFIC GRAVITY 1.025 (1.005-1.020); UROBILINOGEN NORMAL (NORMAL)
[2017-06-11 16:53] LABS: BASOPHILS 0.1 % (0-2); EOSINOPHILS 2.9 % (0-7); HEMATOCRIT 31.5 % (36.0-48.0); HEMOGLOBIN 10.4 g/dL (12-16); IMMATURE GRANULOCYTES 0.3 % (0-5); LYMPHOCYTES 20.5 % (15-50); MCH 29.1 pg (26.0-34.0); MCV 88.2 fL (80.0-100.0); MEAN PLATELET VOLUME 11.9 fL (7.4-10.4); MONOCYTES 9.9 % (2-11); NEUTROPHILS 66.3 % (40-80); PLATELET COUNT 209 10x3/uL (130-400); RBC 3.57 10x6/uL (4.00-5.40); RDW 17.3 % (11.5-14.5); WBC 6.9 10x3/uL (4.8-10.8)
[2017-06-11 17:14] LABS: ALBUMIN 3.3 g/dL (3.4-5.0); ALKALINE PHOSPHATASE 149 U/L (46-116); ALT (SGPT) 25 U/L (10-68); BILIRUBIN - TOTAL 0.73 mg/dL (0.2-1.3); CALC OSMOLALITY 280 mosm/kg (275-300); CALCIUM 8.6 mg/dL (8.5-10.1); CARBON DIOXIDE 31.5 mmol/L (21.0-32.0); CHLORIDE - SERUM 101 mmol/L (98-107); CREATININE - SERUM 0.8 mg/dL (0.6-1.3); GLUCOSE 143 mg/dL (74-106); POTASSIUM - SERUM 3.6 mmol/L (3.5-5.1); PROTEIN - SERUM 6.9 g/dL (6.4-8.2); SODIUM 140 mmol/L (136-145); UREA NITROGEN 13 mg/dL (7-18); eGFR NON AFRICAN AMERICAN 77 mL/min (90-120)
== END 2017-06-11 21:33 | disposition home or self-care (01) ==
LOC: D.ER 15:45
PROVIDERS: Emergency Medicine
DX: R18.8 Other ascites (principal); K74.60 Unspecified cirrhosis of liver; R60.0 Localized edema; Z79.899 Other long term (current) drug therapy; K59.00 Constipation, unspecified

== ENCOUNTER 2017-07-07 16:59 | Inpatient (IN) | payer MEDICAID ==
[2017-07-07 18:04] VITALS: BP 130/46; BMI 40.1
[2017-07-07 18:49] LABS: BASOPHILS 0.1 % (0-2); EOSINOPHILS 2.6 % (0-7); HEMATOCRIT 33.3 % (36.0-48.0); HEMOGLOBIN 10.5 g/dL (12-16); IMMATURE GRANULOCYTES 0.4 % (0-5); LYMPHOCYTES 13.4 % (15-50); MCHC 31.5 g/dL (31.0-37.0); MCV 88.8 fL (80.0-100.0); MEAN PLATELET VOLUME 11.3 fL (7.4-10.4); MONOCYTES 8.6 % (2-11); NEUTROPHILS 74.9 % (40-80); PLATELET COUNT 249 10x3/uL (130-400); RBC 3.75 10x6/uL (4.00-5.40); RDW 15.3 % (11.5-14.5); WBC 8.6 10x3/uL (4.8-10.8)
[2017-07-07 19:28] LABS: ALBUMIN 3.5 g/dL (3.4-5.0); ALKALINE PHOSPHATASE 190 U/L (46-116); ALT (SGPT) 14 U/L (10-68); CALC OSMOLALITY 278 mosm/kg (275-300); CALCIUM 8.8 mg/dL (8.5-10.1); CARBON DIOXIDE 26.8 mmol/L (21.0-32.0); CHLORIDE - SERUM 103 mmol/L (98-107); CREATININE - SERUM 0.7 mg/dL (0.6-1.3); GLUCOSE 136 mg/dL (74-106); POTASSIUM - SERUM 4.1 mmol/L (3.5-5.1); SODIUM 138 mmol/L (136-145); UREA NITROGEN 16 mg/dL (7-18); eGFR NON AFRICAN AMERICAN 90 mL/min (90-120)
[2017-07-07 19:33] LABS: PRO BNP 1123 pg/mL (0-125)
[2017-07-07 22:08] VITALS: BP 143/75
--- NOTE | 2017-07-07 22:45 | NUR ---
RECIEVED REPORT AND ASSUMED CARE OF PT.
[2017-07-08 00:39] VITALS: BP 132/49
[2017-07-08 04:26] LABS: BASOPHILS 0.1 % (0-2); EOSINOPHILS 2.5 % (0-7); HEMOGLOBIN 9.8 g/dL (12-16); IMMATURE GRANULOCYTES 0.1 % (0-5); MCH 28.1 pg (26.0-34.0); MCHC 31.6 g/dL (31.0-37.0); MCV 88.8 fL (80.0-100.0); MEAN PLATELET VOLUME 11.2 fL (7.4-10.4); MONOCYTES 10.3 % (2-11); PLATELET COUNT 241 10x3/uL (130-400); RBC 3.49 10x6/uL (4.00-5.40); RDW 15.4 % (11.5-14.5); WBC 7.1 10x3/uL (4.8-10.8)
[2017-07-08 04:39] LABS: ALKALINE PHOSPHATASE 178 U/L (46-116); ALT (SGPT) 12 U/L (10-68); BILIRUBIN - TOTAL 0.49 mg/dL (0.2-1.3); CALC OSMOLALITY 279 mosm/kg (275-300); CALCIUM 8.5 mg/dL (8.5-10.1); CARBON DIOXIDE 28.5 mmol/L (21.0-32.0); CHLORIDE - SERUM 102 mmol/L (98-107); CREATININE - SERUM 0.7 mg/dL (0.6-1.3); GLUCOSE 154 mg/dL (74-106); POTASSIUM - SERUM 3.6 mmol/L (3.5-5.1); PROTEIN - SERUM 6.7 g/dL (6.4-8.2); SODIUM 138 mmol/L (136-145); UREA NITROGEN 16 mg/dL (7-18); eGFR NON AFRICAN AMERICAN 90 mL/min (90-120)
--- NOTE | 2017-07-08 07:45 | NUR ---
A&O, DENIES NEEDS, NO DISTRESS NOTED, CALL LIGHT IN REACH, BED LOWEST POSITION, WILL CONTINUE TO MONITOR
[2017-07-08 09:03] VITALS: BP 133/46
[2017-07-08 11:06] LABS: APTT 31.7 SECONDS (22.8-39.4); INR 1.18 (0.85-1.17); PROTIME 14.9 SECONDS (11.6-15.0)
[2017-07-08 11:34] VITALS: BP 131/68
--- NOTE | 2017-07-08 13:33 | NUR ---
Patient Name: NGA LEWIS Admission Status: Urgent Accout number: [id number] Admission Date: 07-07-2017 : 1955 Admission Diagnosis: Attending: KHRIS COLE Current LOS: 1 Anticipated DC Date: 07-10-2017 Planned Disposition: Home Primary Insurance: [place] PRIVATE OPTIONS [place] Discharge Planning Comments: CM MET WITH PATIENT AND DAUGHTER (FAVIOLA) REGARDING D/C NEEDS AND PLANS. PATIENT LIVES WITH HER SPOUSE AND FAMILY WILL DRIVE HER HOME AT DISCHARGE. PATIENT STATED SHE HAS 2 STEPS W/O RAILS TO ENTER HOME AND 4 STEPS INSIDE W/RAILS. PATIENT STATED SHE IS INDEPENDENT WITH HER CARE ANSD HAS A WALKER, CANE, BS COMMODE, C-PAP, AND GLUCOMETER AT HOME. PATIENTS PCP IS DR. COLE AND USES [facility] PATIENT IS CURRENT WITH [facility]. CM WILL CONTINUE TO FOLLOW PATIENT WITH D/C NEEDS AND PLANS. PCP DR DOUGLAS DELA [facility] [phone] FAVIOLA MONREAL (DAUGHTER) [phone] Anesthesiologist Attending: Ayesha Pro Is the patient Alert and Oriented? Yes 0 * How many steps to enter\exit or inside your home? 2 0 * PCP DR. COLE 0 * Pharmacy [facility] 0 * Preadmission Environment Home with Family 0 * ADLs Independent 0 * Equipment Bedside Commode Cane CPAP Glucometer Walker 0 * List name and contact numbers for known caregivers / representatives who currently or will assist patient after discharge: FAVIOLA MONREAL (DAUGHTER) [phone] 0 * Community resources currently utilized Home Health 0 * Please name any agencies selected above. [facility] 0 * Additional services required to return to the preadmission environment? Yes 0 * Can the patient safely return to the preadmission environment? Yes 0 * Has this patient been hospitalized within the prior 30 days at any hospital? No 0 Grand Total: 0
[2017-07-08 14:08] VITALS: BMI 40.0
--- NOTE | 2017-07-08 15:55 | NUR ---
WITNESS CONSENT WITH DINA KRISHNAN, RESTING IN BED, CALL LIGHT IN REACH
[2017-07-08 16:07] VITALS: BP 128/66
--- NOTE | 2017-07-08 19:30 | NUR ---
RECEIVED PT SITTING IN CHAIR AAOX4 RESP UNLABORED SKIN W/D COLOR WNL DENIES ANY NEEDS OR DISCOMFORT AT THIS TIME
[2017-07-08 19:57] VITALS: BP 124/54
[2017-07-08 23:49] VITALS: BP 113/47
--- NOTE | 2017-07-09 | NUR ---
PATIENT REFUSED SCDS
[2017-07-09 04:00] VITALS: BP 121/51
[2017-07-09 07:37] LABS: BASOPHILS 0.2 % (0-2); EOSINOPHILS 3.3 % (0-7); HEMOGLOBIN 9.9 g/dL (12-16); IMMATURE GRANULOCYTES 0.7 % (0-5); LYMPHOCYTES 12.8 % (15-50); MCH 27.7 pg (26.0-34.0); MCHC 30.9 g/dL (31.0-37.0); MCV 89.6 fL (80.0-100.0); MEAN PLATELET VOLUME 11.3 fL (7.4-10.4); MONOCYTES 11.5 % (2-11); NEUTROPHILS 71.5 % (40-80); PLATELET COUNT 233 10x3/uL (130-400); RBC 3.57 10x6/uL (4.00-5.40); RDW 15.3 % (11.5-14.5)
[2017-07-09 07:46] LABS: INR 1.22 (0.85-1.17); PROTIME 15.3 SECONDS (11.6-15.0)
[2017-07-09 07:50] VITALS: BP 138/57
[2017-07-09 07:57] LABS: CALC OSMOLALITY 281 mosm/kg (275-300); CALCIUM 8.6 mg/dL (8.5-10.1); CHLORIDE - SERUM 104 mmol/L (98-107); CREATININE - SERUM 0.7 mg/dL (0.6-1.3); GLUCOSE 138 mg/dL (74-106); SODIUM 139 mmol/L (136-145); UREA NITROGEN 18 mg/dL (7-18); eGFR NON AFRICAN AMERICAN 90 mL/min (90-120)
[2017-07-09 08:01] LABS: POTASSIUM - SERUM 4.3 mmol/L (3.5-5.1)
[2017-07-09 12:23] VITALS: BP 120/53
--- NOTE | 2017-07-09 12:42 | NUR ---
PT AOX4 RESP EVEN AND NONLABORED PT DENIES NEEDS AT THIS TIME IV TO LEFT FOREARM PATENT AND INTACT AT THIS TIME PT SITTING IN CHAIR IN ROOM WITH DAUGHTER AT THIS TIME WILL CONTINUE TO MONITOR
--- NOTE | 2017-07-09 12:53 | NUR ---
OUT OF ROOM FOR PARACENTESIS
--- NOTE | 2017-07-09 14:03 | NUR ---
BACK FROM PROCEDURE THAT WASNT PREFORMED DUE TO LACK OF FLUID ON ABDOMEN
[2017-07-09 15:42] VITALS: BP 130/60
[2017-07-09 19:56] VITALS: BP 116/65
--- NOTE | 2017-07-09 20:11 | NUR ---
PATIENT STATED "I AM HAVING A LOT OF PAIN." SPOKE WITH , HE STATED "CHANGE HER PAIN NORCO-5 FROM EVERY 12HP TO Q6HP AND TRY THAT AND IF IT DOES NOT WORK THEN CONTACT ME."
--- NOTE | 2017-07-09 21:19 | NUR ---
PATIENT STATED "I HAVE BEEN HAVING SOME CHEST DISCOMFORT FOR THE PAST 3-4 HOURS. IT FEELS LIKE MY HEART IS POUNDING REALLY HARD AND FAST, AND A COUPLE OF TIMES IT HAS TOOK MY BREATH AWAY." PAGED .
[2017-07-09 23:56] VITALS: BP 128/59
[2017-07-10 04:00] VITALS: BP 130/60
[2017-07-10 05:25] LABS: BASOPHILS 0 % (0-2); EOSINOPHILS 2.9 % (0-7); HEMATOCRIT 31.4 % (36.0-48.0); HEMOGLOBIN 9.8 g/dL (12-16); IMMATURE GRANULOCYTES 0.5 % (0-5); LYMPHOCYTES 18.6 % (15-50); MCH 27.8 pg (26.0-34.0); MCHC 31.2 g/dL (31.0-37.0); MCV 89.2 fL (80.0-100.0); MEAN PLATELET VOLUME 11.4 fL (7.4-10.4); MONOCYTES 9.9 % (2-11); NEUTROPHILS 68.1 % (40-80); PLATELET COUNT 228 10x3/uL (130-400); RBC 3.52 10x6/uL (4.00-5.40); RDW 15.7 % (11.5-14.5)
[2017-07-10 05:39] LABS: WBC 4.2 10x3/uL (4.8-10.8)
[2017-07-10 05:45] LABS: ALBUMIN 3.1 g/dL (3.4-5.0); ALKALINE PHOSPHATASE 195 U/L (46-116); ALT (SGPT) 14 U/L (10-68); AMYLASE - SERUM 29 U/L (25-115); CALC OSMOLALITY 276 mosm/kg (275-300); CALCIUM 8.5 mg/dL (8.5-10.1); CHLORIDE - SERUM 102 mmol/L (98-107); CREATININE - SERUM 0.7 mg/dL (0.6-1.3); GLUCOSE 125 mg/dL (74-106); LIPASE 94 U/L (73-393); POTASSIUM - SERUM 4.1 mmol/L (3.5-5.1); PROTEIN - SERUM 6.8 g/dL (6.4-8.2); SODIUM 137 mmol/L (136-145); UREA NITROGEN 18 mg/dL (7-18); eGFR NON AFRICAN AMERICAN 90 mL/min (90-120)
--- NOTE | 2017-07-10 07:05 | NUR ---
REPORT RECEIVED, ASSUMED CARE OF PT. RESTING WITH EYES SHUT, NO NEEDS VOICED AT THIS TIME. R FOREARM IV SALINE LOCKED, DRSG C/D/I. O2 VIA NASAL CANNULA AT 2L. BED IN LOWEST POSITION, SIDE RAILS UP X 2, CALL LIGHT WITHIN REACH.
[2017-07-10 08:30] VITALS: BP 121/46
[2017-07-10 12:13] VITALS: BP 110/42
--- NOTE | 2017-07-10 14:18 | NUR ---
NUTRITION F/U CHART REVIEWED. FAMILY AT BEDSIDE. TOLERATING ADA DIET WITH 75 TO 100% INTAKE RECENT MEALS. WILL CONTINUE TO PROVIDE DIET, MONITOR PO INTAKE. RD FOLLOWING
--- NOTE | 2017-07-10 14:27 | NUR ---
PT COMPLAINS OF "I THINK I HAVE ANXIETY" VITAL SIGNS 130/67, PULSE 64 BPM, RESPIRATIONS 16.
[2017-07-10 15:48] VITALS: BP 145/61
[2017-07-10 20:00] VITALS: BP 117/60
--- NOTE | 2017-07-10 20:34 | NUR ---
PATIENT STATED SHE IS HAVING A FAMILY MEMBER BRING HER C-PAP UP TONIGHT. SHE IS ON THE PHONE WITH THE FAMILY MEMBER NOW.
[2017-07-11] VITALS: BP 105/49
[2017-07-11 02:53] LABS: APPEARANCE CLEAR (CLEAR); BILIRUBIN NEGATIVE (NEGATIVE); COLOR YELLOW (YELLOW); GLUCOSE NEGATIVE (NEGATIVE); KETONE NEGATIVE (NEGATIVE); NITRITE NEGATIVE (NEGATIVE); PROTEIN NEGATIVE (NEGATIVE); UROBILINOGEN NORMAL (NORMAL)
[2017-07-11 04:00] VITALS: BP 99/45
--- NOTE | 2017-07-11 07:40 | NUR ---
ASSESSMENT COMPLETE. SL TO R FA. ABDOMEN DISTENDED AND FIRM. COMPLAINING OF FREQUENT URINATION DURING THE NIGHT. DENIES ANY NEEDS AT THIS TIME.
[2017-07-11 08:16] LABS: BASOPHILS 0.2 % (0-2); EOSINOPHILS 2.6 % (0-7); HEMATOCRIT 33.8 % (36.0-48.0); HEMOGLOBIN 10.5 g/dL (12-16); IMMATURE GRANULOCYTES 0.3 % (0-5); LYMPHOCYTES 17.9 % (15-50); MCH 27.7 pg (26.0-34.0); MCHC 31.1 g/dL (31.0-37.0); MCV 89.2 fL (80.0-100.0); MEAN PLATELET VOLUME 10.8 fL (7.4-10.4); MONOCYTES 9.5 % (2-11); NEUTROPHILS 69.5 % (40-80); PLATELET COUNT 220 10x3/uL (130-400); RBC 3.79 10x6/uL (4.00-5.40); RDW 15.5 % (11.5-14.5); WBC 5.8 10x3/uL (4.8-10.8)
[2017-07-11 08:17] LABS: ALPHA FETOPROTEIN -(TUMOR MRK) 1.8 ng/mL (0.0-8.3); CA 15-3 12.6 U/mL (0.0-25.0); CEA 1.4 ng/mL (0.0-4.7)
[2017-07-11 08:36] LABS: ALBUMIN 3.3 g/dL (3.4-5.0); ANION GAP 9.7 mmol/L (8-16); BILIRUBIN - TOTAL 0.67 mg/dL (0.2-1.3); CALCIUM 8.5 mg/dL (8.5-10.1); CARBON DIOXIDE 29.5 mmol/L (21.0-32.0); POTASSIUM - SERUM 4.2 mmol/L (3.5-5.1)
[2017-07-11 08:38] LABS: CREATININE - SERUM 0.9 mg/dL (0.6-1.3)
[2017-07-11 08:50] VITALS: BP 117/50
--- NOTE | 2017-07-11 10:56 | NUR ---
SITTING UP IN CHAIR VISITING WITH FAMILY. DENIES ANY NEEDS AT THIS TIME.
[2017-07-11 13:03] VITALS: BP 118/48
[2017-07-11 16:45] VITALS: BP 92/43
--- NOTE | 2017-07-11 17:30 | NUR ---
DENIES ANY NEEDS AT THIS TIME.
[2017-07-11 20:00] VITALS: BP 111/47
[2017-07-12] VITALS: BP 105/45
[2017-07-12 04:00] VITALS: BP 126/42
--- NOTE | 2017-07-12 07:45 | NUR ---
TEARFUL, DENIES NEEDS, NO DISTRESS NOTED, CALL LIGHT IN REACH, BED LOWEST POSITION, WILL CONTINUE TO MONITOR, PT STATES SHE APPRECIATES DR GALE'S HONESTY
[2017-07-12 13:15] VITALS: BP 111/41
[2017-07-12 16:33] VITALS: BP 129/48
--- NOTE | 2017-07-12 17:47 | NUR ---
PT RESTING IN BED WITH GUEST AT BEDSIDE. BROUGHT PT CHANNEL GUIDE PER HER REQUEST. PT DENIES OTHER NEEDS AT THIS TIME. BED IN LOWEST POSITION AND CALL LIGHT WITHIN REACH. ENCOURAGED THE PT TO CALL IF SHE HAS NEEDS.
[2017-07-12 20:00] VITALS: BP 127/44
[2017-07-13] VITALS (7 sets, daily range): BP systolic 108–130; BP diastolic 39–72
[2017-07-13 05:36] LABS: BASOPHILS 0.2 % (0-2); HEMATOCRIT 29.9 % (36.0-48.0); HEMOGLOBIN 9.6 g/dL (12-16); IMMATURE GRANULOCYTES 0.3 % (0-5); LYMPHOCYTES 19.7 % (15-50); MCH 27.9 pg (26.0-34.0); MCHC 32.1 g/dL (31.0-37.0); MEAN PLATELET VOLUME 11.1 fL (7.4-10.4); NEUTROPHILS 61.8 % (40-80); PLATELET COUNT 239 10x3/uL (130-400); RBC 3.44 10x6/uL (4.00-5.40); RDW 15.6 % (11.5-14.5)
[2017-07-13 05:37] LABS: MCV 86.9 fL (80.0-100.0); WBC 8.8 10x3/uL (4.8-10.8)
--- NOTE | 2017-07-13 05:50 | NUR ---
NOTIFIED BY LAB OF PATIENT'S BLOOD GLUCOSE. GAVE PT A SNACK AND ORANGE JUICE.
[2017-07-13 05:51] LABS: ALKALINE PHOSPHATASE 215 U/L (46-116); ALT (SGPT) 16 U/L (10-68); BILIRUBIN - TOTAL 0.39 mg/dL (0.2-1.3); CALC OSMOLALITY 277 mosm/kg (275-300); CALCIUM 8.4 mg/dL (8.5-10.1); CARBON DIOXIDE 27.2 mmol/L (21.0-32.0); CHLORIDE - SERUM 103 mmol/L (98-107); CREATININE - SERUM 0.8 mg/dL (0.6-1.3); POTASSIUM - SERUM 4.3 mmol/L (3.5-5.1); PROTEIN - SERUM 6.3 g/dL (6.4-8.2); SODIUM 139 mmol/L (136-145); UREA NITROGEN 20 mg/dL (7-18); eGFR NON AFRICAN AMERICAN 77 mL/min (90-120)
[2017-07-13 05:54] LABS: GLUCOSE 53 mg/dL (74-106)
--- NOTE | 2017-07-13 07:15 | NUR ---
RECEIVED REPORT. ASSUMED CARE OF PATIENT. RESTING ON LEFT LATERAL SIDE. CALL LIGHT WITHIN REACH. PATIENT HAS HOME CPAP UNIT LYING NEXT TO HER IN BED. PATIENT STATES SHE IS WAITING ON TEST RESULTS. NO DISTRESS.
--- NOTE | 2017-07-13 10:15 | NUR ---
PATIENT REFUSES SCDS TO BILATERAL LOWER EXTREMITIES.
--- NOTE | 2017-07-13 13:22 | NUR ---
PATIENT SITTING UP TO CHAIR AT BEDSIDE. PATIENT PRESENT. PATIENT STATES SHE IS NOT GOING TO GO TO [place] TO HAVE SPECIAL BIOPSIES DONE. PATIENT STATES SOMEONE HERE SHOULD BE ABLE TO DO THEM. INFORMED PATIENT THAT IS HER CHOICE AND SHE CAN DISCUSS THE BIOPSY WITH IN THE AM AGAIN, MAYBE HE HAS MORE CHOICES TO OFFER HER. PATIENT VERY INQUISITIVE IF SHE WILL BE DISCHARGED IN AM. AGAIN UNSURE OF DISCHARGE STATUS SINCE SHE IS REFUSING TO GO HAVE TESTING DONE THAT FEELS IS NEEDED.
--- NOTE | 2017-07-13 18:12 | NUR ---
PATIENT SITTING TO CHAIR AT BEDSIDE. CALL LIGHT WITHIN REACH. SHOWER COMPLETED AT THIS TIME. PATIENT DENIES NEEDS. NO DISTRESS.
--- NOTE | 2017-07-13 19:53 | NUR ---
PT AMBULATING AROUND THE ROOM AND DENIES NEEDS AT THIS TIME. PT C/O 06/24 PAIN IN HER BACK, HOWEVER, REFUSED PAIN MEDS AT THIS TIME. BED IN LOWEST POSITION AND CALL LIGHT WITHIN REACH. ENCOURAGED THE PT TO CALL IF SHE HAS NEEDS.
--- NOTE | 2017-07-13 20:30 | NUR ---
PATIENT C/O CONSTIPATION. OFFERED PT ENEMA AND SHE REFUSED STATING SHE WOULD PREFER TO TAKE LACTULOSE
[2017-07-14] VITALS: BP 111/43
[2017-07-14 04:00] VITALS: BP 113/60
[2017-07-14 05:12] LABS: BASOPHILS 0.3 % (0-2); EOSINOPHILS 2.8 % (0-7); HEMATOCRIT 28.8 % (36.0-48.0); HEMOGLOBIN 9.2 g/dL (12-16); IMMATURE GRANULOCYTES 0.3 % (0-5); LYMPHOCYTES 22.8 % (15-50); MCH 28.1 pg (26.0-34.0); MCHC 31.9 g/dL (31.0-37.0); MCV 88.1 fL (80.0-100.0); MEAN PLATELET VOLUME 11.7 fL (7.4-10.4); MONOCYTES 15.5 % (2-11); NEUTROPHILS 58.3 % (40-80); PLATELET COUNT 227 10x3/uL (130-400); RBC 3.27 10x6/uL (4.00-5.40); RDW 15.5 % (11.5-14.5); WBC 7.6 10x3/uL (4.8-10.8)
[2017-07-14 05:41] LABS: ALKALINE PHOSPHATASE 231 U/L (46-116); ALT (SGPT) 18 U/L (10-68); CALC OSMOLALITY 276 mosm/kg (275-300); CALCIUM 8.3 mg/dL (8.5-10.1); CHLORIDE - SERUM 102 mmol/L (98-107); CREATININE - SERUM 0.8 mg/dL (0.6-1.3); PROTEIN - SERUM 6.7 g/dL (6.4-8.2); SODIUM 138 mmol/L (136-145); UREA NITROGEN 15 mg/dL (7-18); eGFR NON AFRICAN AMERICAN 77 mL/min (90-120)
[2017-07-14 05:44] LABS: GLUCOSE 92 mg/dL (74-106)
[2017-07-14 08:12] VITALS: BP 131/55
--- NOTE | 2017-07-14 08:39 | NUR ---
REC'D SITTING IN CHAIR IN ROOM AWAKE AND ALERT. RESP EVEN AND UNLABORED WITH NO DISTRESS NOTED. CAN EXPRESS NEEDS AND WANTS. NO C/O NOTED OR VOICED. ASSESSMENT COMPLETED. C/L IN REACH AT BEDSIDE.
[2017-07-14 12:34] VITALS: BP 117/51
--- NOTE | 2017-07-14 13:34 | NUR ---
CM REASSESSMENT NOTE: PATIENT IS DISCHARGING HOME TODAY/CURRENT WITH [facility] AND THEY HAVE BEEN NOTIFIED. FAMILY DRIVING PATIENT. NO OTHER NEEDS FOR DISCHARGE.
--- NOTE | 2017-07-14 15:51 | NUR ---
PT REFUSED MED DUE TO BE DC
--- NOTE | 2017-07-14 17:01 | NUR ---
PT WAS D/C AT THIS TIME WITH PERSONAL BELONGS AND D/C SUMMARY INSTRUCTION. NO C/O NOTED UPON DEPARTURE AND WAS IN STABLE CONDITION.
--- NOTE | 2017-08-04 09:15 | EC ---
PATIENT:NGA LEWIS DATE OF SERVICE: 07/07/17 SEX: F MEDICAL RECORD: [id number] DATE OF : [birth year] LOCATION:D.MS [facility] AGE OF PATIENT: 62 ADMISSION DATE: 07/07/17 REFERRING PHYSICIAN: INTERPRETING PHYSICIAN: WILLIAN KHAN MD ECHOCARDIOGRAM REPORT ECHO CHARGES 4 ECHO COMPLETE CLINICAL DIAGNOSIS: HTN ECHOCARDIOGRAPHIC MEASUREMENTS (adult normal given) AC root (d.<3.7cm) 2.5 cm LV Septum d (<1.2 cm> 1.2 cm Valve Excursion 1.2 cm LV Septum (systole) 1.3 cm Left Atria (s.<4.0cm> 3.5 cm LVPW d(<1.2cm) 1.4 cm RV (d.<2.3cm) 3.9 cm LVPW (sytole) 1.6 cm LV diastole(<5.6CM) 4.8 cm MV E-F(>70mm/sec) cm LV systole 3.5 cm LVOT Diameter 1.4 cm MV exc.(>10mm) 1.4 cm Est.ejection fraction (50-75%) % Pericardial Effusion N DOPPLER: LVIT cm/sec A 80.0 cm/sec E 166 cm/sec LA cm/sec RVSP 69 mmHg LVOT 137 cm/sec AOP1/2T 486 m/s Asc. Ao 198 cm/sec RVOT 65 cm/sec RA cm/sec PA 147 cm/sec AV Gradient Peak 15.71mmHg AV Mean 7.92 mmHg AV Area 1.9 cm MV Gradient Peak 11.78mmHg MV Mean 2.86 mmHg MV Area cm COMMENTS: Office Machine Servicer Apprentice: Elda WANG Tax Lawyer: 4 Dr. Khan TAPE# PACS DATE OF SERVICE: 07/08/2017 PROCEDURE: Transthoracic echocardiogram. FINDINGS: 1. There is mild concentric left ventricular hypertrophy, ejection fraction of 60%. There is no regional wall motion abnormalities. 2. The left atrium is normal size, normal function. 3. The right ventricle is mildly to moderately dilated with normal function. Aortic valve shows sclerosis without significant evidence of stenosis. There is ECHOCARDIOGRAM REPORT [id number] NGA LEWIS mild aortic regurgitation. 4. The mitral valve has moderate mitral regurgitation. 5. The pulmonic valve has trace pulmonic insufficiency. 6. The tricuspid valve shows moderate tricuspid regurgitation with an RVSP of 55-60 mmHg. IMPRESSION: The patient has evidence of hypertensive heart disease and moderate mitral regurgitation that in some views may be in the early forms of severe mitral regurgitation and evidence of pulmonary hypertension, but with preserved LV systolic function. TRANSINT:[id number] Voice Confirmation ID: [id number] DOCUMENT ID: [id number] 07/11/2017 Edited to correct date of service, dm. WILLIAN KHAN MD at 0915 CC: [id number] DICTATION DATE: 07/09/17 0916 UTILITY WORKER FORGE: 07/09/17 1045 DIS IN 07/14/17 [facility] [address] [place] [address]
== END 2017-07-14 17:02 | disposition home health service (06) | DRG 433 ==
LOC: D.MS 16:59
PROVIDERS: General Practice; Internal Medicine Gastroenterology; Radiology Diagnostic Radiology; ADMIT Family Medicine
DX: K74.69 Other cirrhosis of liver (principal); R18.8 Other ascites; I10 Essential (primary) hypertension; I50.9 Heart failure, unspecified; E11.9 Type 2 diabetes mellitus without complications; Z79.4 Long term (current) use of insulin; I08.3 Combined rheumatic disorders of mitral, aortic and tricuspid valves; G47.33 Obstructive sleep apnea (adult) (pediatric); I27.20 Pulmonary hypertension, unspecified; K59.00 Constipation, unspecified; K75.81 Nonalcoholic steatohepatitis (NASH); N63.0 Unspecified lump in unspecified breast; I09.9 Rheumatic heart disease, unspecified

== ENCOUNTER → 2017-07-24 07:50 | Outpatient (CLI) | payer MEDICAID ==
[2017-07-08 14:08] VITALS: BMI 40.0
[~2017-07-24 07:50] MED LIST changes: +MACROBID100 MG PO; +XIFAXAN550 MG PO
== END | disposition home or self-care (01) ==
LOC: D.US 07:50
DX: R18.8 Other ascites (principal)

== ENCOUNTER → 2017-07-30 14:02 | Outpatient (CLI) | payer MEDICAID ==
[2017-07-08 14:08] VITALS: BMI 40.0
== END | disposition home or self-care (01) ==
LOC: D.MAMMO 12:00
DX: R18.8 Other ascites (principal)

== ENCOUNTER → 2017-09-23 09:01 | Outpatient (CLI) | payer MEDICAID ==
[2017-09-23 10:35] LABS: BASOPHILS 0.3 % (0-2); EOSINOPHILS 2.7 % (0-7); HEMATOCRIT 31.4 % (36.0-48.0); HEMOGLOBIN 9.7 g/dL (12-16); IMMATURE GRANULOCYTES 0.5 % (0-5); LYMPHOCYTES 15.3 % (15-50); MCH 25.7 pg (26.0-34.0); MCHC 30.9 g/dL (31.0-37.0); MCV 83.1 fL (80.0-100.0); MEAN PLATELET VOLUME 11.4 fL (7.4-10.4); MONOCYTES 9.3 % (2-11); NEUTROPHILS 71.9 % (40-80); PLATELET COUNT 252 10x3/uL (130-400); RBC 3.78 10x6/uL (4.00-5.40); RDW 16.3 % (11.5-14.5); WBC 5.9 10x3/uL (4.8-10.8)
[2017-09-23 10:44] LABS: INR 1.17 (0.85-1.17); PROTIME 14.5 SECONDS (11.6-15.0)
[2017-09-23 10:48] LABS: ALBUMIN 3.1 g/dL (3.4-5.0); BILIRUBIN - DIRECT 0.16 mg/dL (0.00-0.30); BILIRUBIN - INDIRECT 0.34 mg/dL (0.00-1.00); BILIRUBIN - TOTAL 0.5 mg/dL (0.2-1.3); PROTEIN - SERUM 6.8 g/dL (6.4-8.2)
== END | disposition home or self-care (01) ==
LOC: D.US 08:30 → D.LAB 09:01 → D.US 10:00
PROVIDERS: Internal Medicine Gastroenterology
DX: R11.2 Nausea with vomiting, unspecified (principal); R18.8 Other ascites; K76.0 Fatty (change of) liver, not elsewhere classified

== ENCOUNTER 2017-10-09 12:53 | Inpatient (IN) | payer MEDICAID ==
[~2017-10-09] VITALS: Ht 149.9 cm; Wt 85.4 kg
--- NOTE | ~2017-10-09 | EC ---
PATIENT:NGA LEWIS DATE OF SERVICE: 10/09/17 SEX: F MEDICAL RECORD: [id number] DATE OF : [birth year] LOCATION:D. D.211 AGE OF PATIENT: 62 ADMISSION DATE: 10/09/17 REFERRING PHYSICIAN: INTERPRETING PHYSICIAN: DARY VERDUZCO MD ECHOCARDIOGRAM REPORT ECHO CHARGES 4 ECHO COMPLETE CLINICAL DIAGNOSIS: CP ECHOCARDIOGRAPHIC MEASUREMENTS (adult normal given) AC root (d.<3.7cm) 2.5 cm LV Septum d (<1.2 cm> 1.6 cm Valve Excursion 1.5 cm LV Septum (systole) 2.2 cm Left Atria (s.<4.0cm> 4.5 cm LVPW d(<1.2cm) 1.4 cm RV (d.<2.3cm) 3.2 cm LVPW (sytole) 1.8 cm LV diastole(<5.6CM) 5.3 cm MV E-F(>70mm/sec) cm LV systole 3.4 cm LVOT Diameter 1.4 cm MV exc.(>10mm) cm Est.ejection fraction (50-75%) % Pericardial Effusion N DOPPLER: LVIT cm/sec A 84.0 cm/sec E 201 cm/sec LA cm/sec RVSP 61.0 mmHg LVOT 152 cm/sec AOP1/2T 455.0m/s Asc. Ao 214 cm/sec RVOT 111 cm/sec RA cm/sec PA 153 cm/sec AV Gradient Peak 18.3 mmHg AV Mean 8.9 mmHg AV Area 1.1 cm MV Gradient Peak 12.4 mmHg MV Mean 3.8 mmHg MV Area cm COMMENTS: Front Office Secretary: Pam RAMOSOE Cell Plasterer: Alex Coates TAPE# PACS DATE OF SERVICE: 10/10/2017 DATE OF SERVICE: 10/10/2017 FINDINGS: 1. Left ventricular chamber size is within normal limits. Left ventricular systolic function is mildly depressed. Overall ejection fraction is 45% to 50%. 2. Left atrium is enlarged at 4.5 cm. Right atrium and right ventricular chamber sizes are within normal limits. 3. Valvular structures have normal structure and motion. ECHOCARDIOGRAM REPORT [id number] NGA LEWIS 4. Doppler interrogation reveals mild aortic insufficiency, moderate mitral regurgitation, moderate tricuspid regurgitation. No other valvular insufficiency or stenosis. Pulmonary systolic pressure is elevated estimated at 61 mmHg. 5. No evidence of pericardial effusion or left ventricular thrombus. TRANSINT:[id number] Voice Confirmation ID: [id number] DOCUMENT ID: [id number] DARY VERDUZCO MD at 1759 CC: [id number] DICTATION DATE: 10/10/17 1352 SENIOR CARE SPECIALIST: 10/10/17 1426 DIS IN 10/14/17 [place] [id number] [place] [id number]
[~2017-10-09 12:53] MED LIST changes: -MACROBID100 MG PO; -XIFAXAN550 MG PO
[2017-10-09 13:28] LABS: BASOPHILS 0.2 % (0-2); EOSINOPHILS 2.6 % (0-7); HEMATOCRIT 30.9 % (36.0-48.0); HEMOGLOBIN 9.2 g/dL (12-16); IMMATURE GRANULOCYTES 0.2 % (0-5); MCH 24.7 pg (26.0-34.0); MCHC 29.8 g/dL (31.0-37.0); MCV 82.8 fL (80.0-100.0); MONOCYTES 9.6 % (2-11); NEUTROPHILS 71.4 % (40-80); PLATELET COUNT 217 10x3/uL (130-400); RBC 3.73 10x6/uL (4.00-5.40); WBC 6.1 10x3/uL (4.8-10.8)
[2017-10-09 13:40] LABS: APPEARANCE CLEAR (CLEAR); COLOR YELLOW (YELLOW)
[2017-10-09 13:41] LABS: BILIRUBIN NEGATIVE (NEGATIVE); GLUCOSE NEGATIVE (NEGATIVE); KETONE NEGATIVE (NEGATIVE); NITRITE NEGATIVE (NEGATIVE); PROTEIN NEGATIVE (NEGATIVE); UROBILINOGEN NORMAL (NORMAL)
[2017-10-09 13:46] LABS: BACTERIA MODERATE /hpf (NONE SEEN); HYALINE CAST 0-5 /lpf (NONE SEEN); MUCUS NONE SEEN /lpf (NONE SEEN); RED CELLS - URINE 0-5 /hpf (0-5)
[2017-10-09 13:50] LABS: ALBUMIN 3.4 g/dL (3.4-5.0); ALKALINE PHOSPHATASE 163 U/L (46-116); ALT (SGPT) 12 U/L (10-68); BILIRUBIN - TOTAL 0.41 mg/dL (0.2-1.3); CALC OSMOLALITY 283 mosm/kg (275-300); CALCIUM 8.7 mg/dL (8.5-10.1); CARBON DIOXIDE 29.4 mmol/L (21.0-32.0); CHLORIDE - SERUM 103 mmol/L (98-107); CREATININE - SERUM 0.9 mg/dL (0.6-1.3); GLUCOSE 91 mg/dL (74-106); POTASSIUM - SERUM 4.7 mmol/L (3.5-5.1); PROTEIN - SERUM 7.4 g/dL (6.4-8.2); SODIUM 141 mmol/L (136-145); UREA NITROGEN 20 mg/dL (7-18); eGFR NON AFRICAN AMERICAN 67 mL/min (90-120)
[2017-10-09 14:09] LABS: CHOL - HDL RATIO 3.2 ratio (2.3-4.1); CHOLESTEROL, TOTAL 79 mg/dL (0-200); CKMB 0.7 U/L (0.0-3.6); CREATINE KINASE 47 UL (21-215); HDL CHOLESTEROL 25 mg/dL (32-96); LDL CHOLESTEROL 44 mg/dL (0-100); LDL-HDL RATIO 1.8 ratio (1.5-3.5); TRIGLYCERIDE 50 mg/dL (30-200); TROPONIN-I < 0.017 ng/mL (0.000-0.060)
[2017-10-09 16:59] VITALS: BP 122/56; BMI 39.7
[2017-10-09 20:00] VITALS: BP 97/60
[2017-10-09 20:47] LABS: CKMB 0.6 U/L (0.0-3.6); CREATINE KINASE 35 UL (21-215)
[2017-10-09 20:50] LABS: TROPONIN-I < 0.017 ng/mL (0.000-0.060)
[2017-10-10] VITALS: BP 120/42
[2017-10-10 00:18] LABS: INR 1.27 (0.85-1.17); PROTIME 15.5 SECONDS (11.6-15.0)
[2017-10-10 01:26] LABS: CKMB 0.4 U/L (0.0-3.6); CREATINE KINASE 40 UL (21-215); TROPONIN-I 0.016 ng/mL (0.000-0.060)
[2017-10-10 03:42] LABS: BASOPHILS 0 % (0-2); EOSINOPHILS 0.1 % (0-7); HEMOGLOBIN 9.2 g/dL (12-16); IMMATURE GRANULOCYTES 0.1 % (0-5); LYMPHOCYTES 7.9 % (15-50); MCH 24.7 pg (26.0-34.0); MCHC 30.7 g/dL (31.0-37.0); NEUTROPHILS 90.9 % (40-80); PLATELET COUNT 218 10x3/uL (130-400); RBC 3.72 10x6/uL (4.00-5.40); RDW 16.7 % (11.5-14.5)
[2017-10-10 03:43] LABS: MCV 80.6 fL (80.0-100.0); WBC 8.3 10x3/uL (4.8-10.8)
[2017-10-10 03:50] LABS: INR 1.29 (0.85-1.17); PROTIME 15.7 SECONDS (11.6-15.0)
[2017-10-10 04:00] VITALS: BP 112/58
[2017-10-10 04:08] LABS: ALBUMIN 3.3 g/dL (3.4-5.0); ALKALINE PHOSPHATASE 163 U/L (46-116); ALT (SGPT) 12 U/L (10-68); AMYLASE - SERUM 36 U/L (25-115); BILIRUBIN - TOTAL 0.53 mg/dL (0.2-1.3); CALC OSMOLALITY 285 mosm/kg (275-300); CALCIUM 8.2 mg/dL (8.5-10.1); CARBON DIOXIDE 27.6 mmol/L (21.0-32.0); CHLORIDE - SERUM 102 mmol/L (98-107); CREATININE - SERUM 0.8 mg/dL (0.6-1.3); GLUCOSE 162 mg/dL (74-106); POTASSIUM - SERUM 4.1 mmol/L (3.5-5.1); PRE-ALBUMIN 15.7 mg/dL (18.0-35.7); PRO BNP 1589 pg/mL (0-125); PROTEIN - SERUM 7.2 g/dL (6.4-8.2); SODIUM 140 mmol/L (136-145); UREA NITROGEN 20 mg/dL (7-18); eGFR NON AFRICAN AMERICAN 77 mL/min (90-120)
[2017-10-10 05:02] LABS: CKMB 0.7 U/L (0.0-3.6); CREATINE KINASE 35 UL (21-215)
[2017-10-10 05:05] LABS: TROPONIN-I < 0.017 ng/mL (0.000-0.060)
[2017-10-10 08:49] VITALS: BP 144/63
[2017-10-10 10:09] VITALS: Ht 149.9 cm; Wt 85.4 kg
[2017-10-10 21:10] VITALS: BP 118/49
[2017-10-11 02:43] VITALS: BP 119/48
[2017-10-11 04:55] LABS: BASOPHILS 0 % (0-2); EOSINOPHILS 0 % (0-7); HEMATOCRIT 32.5 % (36.0-48.0); IMMATURE GRANULOCYTES 0.2 % (0-5); LYMPHOCYTES 6.1 % (15-50); MCH 24.8 pg (26.0-34.0); MCHC 30.8 g/dL (31.0-37.0); MCV 80.6 fL (80.0-100.0); MEAN PLATELET VOLUME 10.8 fL (7.4-10.4); MONOCYTES 5.5 % (2-11); NEUTROPHILS 88.2 % (40-80); PLATELET COUNT 224 10x3/uL (130-400); RBC 4.03 10x6/uL (4.00-5.40); RDW 16.9 % (11.5-14.5); WBC 8.8 10x3/uL (4.8-10.8)
[2017-10-11 05:15] LABS: ALBUMIN 3.4 g/dL (3.4-5.0); ALKALINE PHOSPHATASE 132 U/L (46-116); ALT (SGPT) 14 U/L (10-68); CALC OSMOLALITY 286 mosm/kg (275-300); CALCIUM 8.3 mg/dL (8.5-10.1); CARBON DIOXIDE 27.9 mmol/L (21.0-32.0); CHLORIDE - SERUM 103 mmol/L (98-107); CREATININE - SERUM 0.7 mg/dL (0.6-1.3); GLUCOSE 207 mg/dL (74-106); POTASSIUM - SERUM 4.5 mmol/L (3.5-5.1); PROTEIN - SERUM 6.8 g/dL (6.4-8.2); SODIUM 139 mmol/L (136-145); UREA NITROGEN 22 mg/dL (7-18); eGFR NON AFRICAN AMERICAN 90 mL/min (90-120)
[2017-10-11 07:23] LABS: CEA 1.7 ng/mL (0.0-4.7)
[2017-10-11 09:02] VITALS: BP 109/56
[2017-10-11 11:13] VITALS: BP 112/54
[2017-10-11 16:56] VITALS: BP 108/62
[2017-10-11 20:00] VITALS: BP 158/62
[2017-10-12] VITALS: BP 125/67
[2017-10-12 04:00] VITALS: BP 117/64
[2017-10-12 05:25] LABS: BASOPHILS 0 % (0-2); EOSINOPHILS 0.1 % (0-7); HEMATOCRIT 32.8 % (36.0-48.0); HEMOGLOBIN 10.1 g/dL (12-16); IMMATURE GRANULOCYTES 0.3 % (0-5); LYMPHOCYTES 8.2 % (15-50); MCH 24.9 pg (26.0-34.0); MCHC 30.8 g/dL (31.0-37.0); MCV 80.8 fL (80.0-100.0); MEAN PLATELET VOLUME 10.8 fL (7.4-10.4); MONOCYTES 7.5 % (2-11); NEUTROPHILS 83.9 % (40-80); PLATELET COUNT 260 10x3/uL (130-400); RBC 4.06 10x6/uL (4.00-5.40); RDW 16.9 % (11.5-14.5)
[2017-10-12 05:52] LABS: INR 1.32 (0.85-1.17); PROTIME 15.9 SECONDS (11.6-15.0)
[2017-10-12 05:59] LABS: ALBUMIN 3.4 g/dL (3.4-5.0); ALKALINE PHOSPHATASE 118 U/L (46-116); ALT (SGPT) 15 U/L (10-68); CALCIUM 8.1 mg/dL (8.5-10.1); CARBON DIOXIDE 28.1 mmol/L (21.0-32.0); CHLORIDE - SERUM 103 mmol/L (98-107); CREATININE - SERUM 0.7 mg/dL (0.6-1.3); MAGNESIUM - SERUM 2.9 mg/dL (1.8-2.4); PHOSPHOROUS 2.7 mg/dL (2.5-4.9); POTASSIUM - SERUM 4.5 mmol/L (3.5-5.1); PROTEIN - SERUM 6.8 g/dL (6.4-8.2); SODIUM 137 mmol/L (136-145); UREA NITROGEN 21 mg/dL (7-18); eGFR NON AFRICAN AMERICAN 90 mL/min (90-120)
[2017-10-12 06:00] LABS: CALC OSMOLALITY 278 mosm/kg (275-300); GLUCOSE 129 mg/dL (74-106)
[2017-10-12 08:01] VITALS: BP 125/59
[2017-10-12 11:26] VITALS: BP 132/61
[2017-10-12 15:52] VITALS: BP 138/64
[2017-10-12 20:00] VITALS: BP 135/56
[2017-10-13] VITALS: BP 128/49
[2017-10-13 04:00] VITALS: BP 139/65
[2017-10-13 05:39] LABS: BASOPHILS 0 % (0-2); EOSINOPHILS 0.1 % (0-7); HEMATOCRIT 33.3 % (36.0-48.0); HEMOGLOBIN 10.2 g/dL (12-16); IMMATURE GRANULOCYTES 0.5 % (0-5); LYMPHOCYTES 8.4 % (15-50); MCH 24.9 pg (26.0-34.0); MCHC 30.6 g/dL (31.0-37.0); MCV 81.4 fL (80.0-100.0); MEAN PLATELET VOLUME 11.5 fL (7.4-10.4); MONOCYTES 8.6 % (2-11); NEUTROPHILS 82.4 % (40-80); PLATELET COUNT 243 10x3/uL (130-400); RBC 4.09 10x6/uL (4.00-5.40); RDW 17.3 % (11.5-14.5); WBC 9.3 10x3/uL (4.8-10.8)
[2017-10-13 06:10] LABS: ALBUMIN 3.5 g/dL (3.4-5.0); ALKALINE PHOSPHATASE 126 U/L (46-116); CALCIUM 8.2 mg/dL (8.5-10.1); CARBON DIOXIDE 30.5 mmol/L (21.0-32.0); CHLORIDE - SERUM 101 mmol/L (98-107); CREATININE - SERUM 0.8 mg/dL (0.6-1.3); POTASSIUM - SERUM 4.7 mmol/L (3.5-5.1); PROTEIN - SERUM 6.7 g/dL (6.4-8.2); SODIUM 136 mmol/L (136-145); UREA NITROGEN 23 mg/dL (7-18); eGFR NON AFRICAN AMERICAN 77 mL/min (90-120)
[2017-10-13 06:50] LABS: ALT (SGPT) 26 U/L (10-68); CALC OSMOLALITY 281 mosm/kg (275-300); GLUCOSE 204 mg/dL (74-106)
[2017-10-13 08:20] VITALS: BP 135/65
[2017-10-13 12:19] VITALS: BP 140/53
[2017-10-13 16:00] VITALS: BP 136/55
[2017-10-13 21:12] VITALS: BP 130/61
[2017-10-14 05:39] VITALS: BP 126/55
[2017-10-14 08:02] VITALS: BP 100/67
[2017-10-14 11:29] VITALS: BP 100/67; BP 119/60
[2017-10-14 15:11] VITALS: BP 138/51
[2017-10-14] MEDS ORDERED: XIFAXAN550 MG PO (18:44)
[2017-10-14] MEDS ORDERED: MACROBID100 MG PO (18:44)
== END 2017-10-14 20:00 | disposition home or self-care (01) | DRG 441 ==
LOC: D.ER 12:53 → D.M2 14:37 → D.SDCHOLD 10-10 11:11 → D.M2 10-10 11:11
PROVIDERS: Emergency Medicine; Family Medicine; General Practice; Internal Medicine Gastroenterology
PROC: 0W9G3ZZ Drainage of Peritoneal Cavity, Percutaneous Approach (ICD-10-PCS; principal; 2017-10-10 14:30)
DX: K75.81 Nonalcoholic steatohepatitis (NASH) (principal); K72.00 Acute and subacute hepatic failure without coma; I50.32 Chronic diastolic (congestive) heart failure; N39.0 Urinary tract infection, site not specified; I11.0 Hypertensive heart disease with heart failure; E11.9 Type 2 diabetes mellitus without complications; I08.1 Rheumatic disorders of both mitral and tricuspid valves; E66.01 Morbid (severe) obesity due to excess calories; Z68.39 Body mass index [BMI] 39.0-39.9, adult; K74.60 Unspecified cirrhosis of liver; J45.909 Unspecified asthma, uncomplicated

== ENCOUNTER 2017-12-08 09:54 | Inpatient (IN) | payer MEDICAID ==
[~2017-12-08] VITALS: Ht 149.9 cm; Wt 81.2 kg
[~2017-12-08 09:54] MED LIST changes: +MACROBID100 MG PO; +XIFAXAN550 MG PO
[2017-12-08] MEDS ORDERED: PEPCID20 MG PO (10:22)
[2017-12-08] MEDS ORDERED: INSPRA25 MG PO (10:25)
[2017-12-08] MEDS ORDERED: GLUCOPHAGE500 MG PO (10:26)
[2017-12-08 10:49] VITALS: BP 115/41; BMI 36.2
[2017-12-08 12:26] LABS: BASOPHILS 0.1 % (0-2); EOSINOPHILS 1.4 % (0-7); HEMATOCRIT 28.7 % (36.0-48.0); HEMOGLOBIN 8.8 g/dL (12-16); IMMATURE GRANULOCYTES 0.3 % (0-5); LYMPHOCYTES 22.6 % (15-50); MCH 24.7 pg (26.0-34.0); MCHC 30.7 g/dL (31.0-37.0); MCV 80.6 fL (80.0-100.0); MEAN PLATELET VOLUME 10.3 fL (7.4-10.4); NEUTROPHILS 65.6 % (40-80); PLATELET COUNT 237 10x3/uL (130-400); RBC 3.56 10x6/uL (4.00-5.40); RDW 17.1 % (11.5-14.5); WBC 7.1 10x3/uL (4.8-10.8)
[2017-12-08 12:31] LABS: APTT 33.1 SECONDS (22.8-39.4); INR 1.22 (0.85-1.17); PROTIME 14.9 SECONDS (11.6-15.0)
[2017-12-08 12:40] LABS: ALBUMIN 3.3 g/dL (3.4-5.0); ALKALINE PHOSPHATASE 195 U/L (46-116); ALT (SGPT) 11 U/L (10-68); BILIRUBIN - TOTAL 0.65 mg/dL (0.2-1.3); CALC OSMOLALITY 283 mosm/kg (275-300); CALCIUM 8.3 mg/dL (8.5-10.1); CARBON DIOXIDE 28.1 mmol/L (21.0-32.0); CHLORIDE - SERUM 102 mmol/L (98-107); CREATININE - SERUM 0.8 mg/dL (0.6-1.3); POTASSIUM - SERUM 4.2 mmol/L (3.5-5.1); PRO BNP 1374 pg/mL (0-125); PROTEIN - SERUM 7.4 g/dL (6.4-8.2); SODIUM 141 mmol/L (136-145); UREA NITROGEN 20 mg/dL (7-18); eGFR NON AFRICAN AMERICAN 77 mL/min (90-120)
[2017-12-08 12:46] LABS: GLUCOSE 97 mg/dL (74-106)
[2017-12-08 16:20] VITALS: BP 114/32
[2017-12-08 16:59] LABS: APPEARANCE CLEAR (CLEAR); BILIRUBIN NEGATIVE (NEGATIVE); COLOR YELLOW (YELLOW); GLUCOSE NEGATIVE (NEGATIVE); KETONE NEGATIVE (NEGATIVE); NITRITE NEGATIVE (NEGATIVE); PROTEIN TRACE mg/dL (NEGATIVE); SPECIFIC GRAVITY 1.015 (1.005-1.020); UROBILINOGEN NORMAL (NORMAL)
[2017-12-08 17:01] LABS: BACTERIA MODERATE /hpf (NONE SEEN); EPITHELIAL CELLS 0-5 /hpf (0-5); RED CELLS - URINE 0-5 /hpf (0-5); WHITE CELLS - URINE 0-5 /hpf (0-5); YEAST <1+ /hpf (NONE SEEN)
[2017-12-08 21:00] VITALS: BP 112/55
[2017-12-09] VITALS (10 sets, daily range): BP systolic 103–133; BP diastolic 31–62; BMI 36.1
[2017-12-09 05:32] LABS: BASOPHILS 0.2 % (0-2); EOSINOPHILS 2.7 % (0-7); HEMATOCRIT 27.6 % (36.0-48.0); HEMOGLOBIN 8.5 g/dL (12-16); IMMATURE GRANULOCYTES 0.6 % (0-5); LYMPHOCYTES 28.3 % (15-50); MCH 24.7 pg (26.0-34.0); MCHC 30.8 g/dL (31.0-37.0); MCV 80.2 fL (80.0-100.0); MEAN PLATELET VOLUME 10.7 fL (7.4-10.4); MONOCYTES 13.5 % (2-11); NEUTROPHILS 54.7 % (40-80); PLATELET COUNT 235 10x3/uL (130-400); RBC 3.44 10x6/uL (4.00-5.40); RDW 17.3 % (11.5-14.5)
[2017-12-09 05:33] LABS: WBC 5.3 10x3/uL (4.8-10.8)
[2017-12-09 05:39] LABS: % SATURATION 11 % (15-55); IRON 27 ug/dl (35-150); TOTAL IRON BIND CAPACITY 226 ug/dl (260-445); UNSAT IRON BIND CAPACITY 199 ug/dl (150-375)
[2017-12-09 06:05] LABS: ALKALINE PHOSPHATASE 173 U/L (46-116); ALT (SGPT) 12 U/L (10-68); BILIRUBIN - TOTAL 0.56 mg/dL (0.2-1.3); CALC OSMOLALITY 282 mosm/kg (275-300); CALCIUM 8.3 mg/dL (8.5-10.1); CARBON DIOXIDE 25.5 mmol/L (21.0-32.0); CHLORIDE - SERUM 103 mmol/L (98-107); CREATININE - SERUM 0.8 mg/dL (0.6-1.3); FERRITIN 224 ng/mL (3-244); GLUCOSE 128 mg/dL (74-106); POTASSIUM - SERUM 3.8 mmol/L (3.5-5.1); SODIUM 140 mmol/L (136-145); UREA NITROGEN 19 mg/dL (7-18); eGFR NON AFRICAN AMERICAN 77 mL/min (90-120)
[2017-12-09 11:42] LABS: EOS BF 1 %; MACROPHAGES BF 40 %; MESOTHELIALS BF 6 %; NEUT - BF 24 %
[2017-12-10] VITALS: BP 123/56
[2017-12-10 05:21] LABS: BASOPHILS 0.3 % (0-2); EOSINOPHILS 3.6 % (0-7); HEMATOCRIT 26.9 % (36.0-48.0); HEMOGLOBIN 8.2 g/dL (12-16); IMMATURE GRANULOCYTES 0.3 % (0-5); LYMPHOCYTES 34.3 % (15-50); MCH 24.5 pg (26.0-34.0); MCHC 30.5 g/dL (31.0-37.0); MCV 80.3 fL (80.0-100.0); MEAN PLATELET VOLUME 10.1 fL (7.4-10.4); MONOCYTES 12.7 % (2-11); NEUTROPHILS 48.8 % (40-80); PLATELET COUNT 210 10x3/uL (130-400); RBC 3.35 10x6/uL (4.00-5.40); RDW 17.1 % (11.5-14.5)
[2017-12-10 05:27] LABS: WBC 3.9 10x3/uL (4.8-10.8)
[2017-12-10 05:55] LABS: ALBUMIN 2.9 g/dL (3.4-5.0); ALKALINE PHOSPHATASE 165 U/L (46-116); ALT (SGPT) 12 U/L (10-68); BILIRUBIN - TOTAL 0.45 mg/dL (0.2-1.3); CALC OSMOLALITY 283 mosm/kg (275-300); CALCIUM 8.2 mg/dL (8.5-10.1); CARBON DIOXIDE 26.9 mmol/L (21.0-32.0); CHLORIDE - SERUM 104 mmol/L (98-107); CREATININE - SERUM 0.7 mg/dL (0.6-1.3); GLUCOSE 172 mg/dL (74-106); PROTEIN - SERUM 6.8 g/dL (6.4-8.2); SODIUM 140 mmol/L (136-145); UREA NITROGEN 15 mg/dL (7-18); eGFR NON AFRICAN AMERICAN 90 mL/min (90-120)
[2017-12-10] MEDS ORDERED: LANTUS INSULIN10 ML SC (07:14)
[2017-12-10 10:52] VITALS: BP 116/69
[2017-12-10 13:11] VITALS: BP 111/49
[2017-12-10 16:25] VITALS: BP 105/47
[2017-12-10 18:26] LABS: APPEARANCE HAZY (CLEAR); BILIRUBIN NEGATIVE (NEGATIVE); COLOR YELLOW (YELLOW); GLUCOSE NEGATIVE (NEGATIVE); KETONE NEGATIVE (NEGATIVE); NITRITE NEGATIVE (NEGATIVE); PROTEIN TRACE mg/dL (NEGATIVE); SPECIFIC GRAVITY 1.015 (1.005-1.020); UROBILINOGEN NORMAL (NORMAL)
[2017-12-10 18:31] LABS: BACTERIA MANY /hpf (NONE SEEN); EPITHELIAL CELLS 0-5 /hpf (0-5); WHITE CELLS - URINE >50 /hpf (0-5)
[2017-12-10 20:00] VITALS: BP 102/49
[2017-12-11 04:00] VITALS: BP 122/58
[2017-12-11 05:55] LABS: BASOPHILS 0.2 % (0-2); EOSINOPHILS 3.6 % (0-7); HEMATOCRIT 26.7 % (36.0-48.0); HEMOGLOBIN 8.3 g/dL (12-16); IMMATURE GRANULOCYTES 0.7 % (0-5); MCH 25.1 pg (26.0-34.0); MCHC 31.1 g/dL (31.0-37.0); MCV 80.7 fL (80.0-100.0); MEAN PLATELET VOLUME 10.8 fL (7.4-10.4); MONOCYTES 13.3 % (2-11); NEUTROPHILS 48.2 % (40-80); PLATELET COUNT 214 10x3/uL (130-400); RBC 3.31 10x6/uL (4.00-5.40); RDW 17.3 % (11.5-14.5); WBC 4.2 10x3/uL (4.8-10.8)
[2017-12-11 06:21] LABS: ANION GAP 11.8 mmol/L (8-16); CALCIUM 7.9 mg/dL (8.5-10.1); CARBON DIOXIDE 27.2 mmol/L (21.0-32.0)
[2017-12-11 06:22] LABS: CREATININE - SERUM 0.9 mg/dL (0.6-1.3)
[2017-12-11 08:34] VITALS: BP 125/40
[2017-12-11 11:52] VITALS: BP 112/26
[2017-12-11 16:17] VITALS: BP 119/52
[2017-12-11 20:00] VITALS: BP 122/63
[2017-12-12] VITALS (7 sets, daily range): BP systolic 103–201; BP diastolic 41–85
[2017-12-12 05:41] LABS: BASOPHILS 0.2 % (0-2); EOSINOPHILS 2.5 % (0-7); HEMATOCRIT 25.8 % (36.0-48.0); HEMOGLOBIN 8.1 g/dL (12-16); IMMATURE GRANULOCYTES 0.7 % (0-5); LYMPHOCYTES 23.7 % (15-50); MCH 25.3 pg (26.0-34.0); MCHC 31.4 g/dL (31.0-37.0); MCV 80.6 fL (80.0-100.0); MEAN PLATELET VOLUME 10.4 fL (7.4-10.4); MONOCYTES 13.8 % (2-11); NEUTROPHILS 59.1 % (40-80); PLATELET COUNT 206 10x3/uL (130-400); RDW 17.3 % (11.5-14.5); WBC 4.4 10x3/uL (4.8-10.8)
[2017-12-12 06:12] LABS: ALBUMIN 2.9 g/dL (3.4-5.0); ALKALINE PHOSPHATASE 158 U/L (46-116); ALT (SGPT) 15 U/L (10-68); CALC OSMOLALITY 283 mosm/kg (275-300); CALCIUM 8.1 mg/dL (8.5-10.1); CHLORIDE - SERUM 104 mmol/L (98-107); CREATININE - SERUM 0.7 mg/dL (0.6-1.3); PROTEIN - SERUM 6.5 g/dL (6.4-8.2); SODIUM 139 mmol/L (136-145); UREA NITROGEN 15 mg/dL (7-18); eGFR NON AFRICAN AMERICAN 90 mL/min (90-120)
[2017-12-12 06:15] LABS: GLUCOSE 183 mg/dL (74-106)
[2017-12-13 01:47] VITALS: BP 114/70
[2017-12-13 05:20] VITALS: BP 124/54
[2017-12-13 05:28] LABS: BASOPHILS 0 % (0-2); HEMATOCRIT 28.4 % (36.0-48.0); HEMOGLOBIN 8.6 g/dL (12-16); IMMATURE GRANULOCYTES 0.6 % (0-5); LYMPHOCYTES 14.4 % (15-50); MCH 24.9 pg (26.0-34.0); MCHC 30.3 g/dL (31.0-37.0); MCV 82.1 fL (80.0-100.0); MEAN PLATELET VOLUME 10.1 fL (7.4-10.4); MONOCYTES 10.4 % (2-11); NEUTROPHILS 73.6 % (40-80); PLATELET COUNT 219 10x3/uL (130-400); RBC 3.46 10x6/uL (4.00-5.40)
[2017-12-13 05:34] LABS: WBC 8.8 10x3/uL (4.8-10.8)
[2017-12-13 05:43] LABS: ALBUMIN 3.1 g/dL (3.4-5.0); ALKALINE PHOSPHATASE 181 U/L (46-116); ALT (SGPT) 13 U/L (10-68); BILIRUBIN - TOTAL 0.59 mg/dL (0.2-1.3); CALC OSMOLALITY 273 mosm/kg (275-300); CALCIUM 8.2 mg/dL (8.5-10.1); CARBON DIOXIDE 26.6 mmol/L (21.0-32.0); CHLORIDE - SERUM 100 mmol/L (98-107); CREATININE - SERUM 0.8 mg/dL (0.6-1.3); GLUCOSE 160 mg/dL (74-106); POTASSIUM - SERUM 4.2 mmol/L (3.5-5.1); PROTEIN - SERUM 6.9 g/dL (6.4-8.2); SODIUM 135 mmol/L (136-145); UREA NITROGEN 15 mg/dL (7-18); eGFR NON AFRICAN AMERICAN 77 mL/min (90-120)
[2017-12-13 07:34] VITALS: BP 105/48
[2017-12-13 11:00] VITALS: BP 107/43
[2017-12-13 11:01] LABS: APPEARANCE TURBID (CLEAR); BILIRUBIN NEGATIVE (NEGATIVE); COLOR YELLOW (YELLOW); GLUCOSE NEGATIVE (NEGATIVE); KETONE NEGATIVE (NEGATIVE); NITRITE NEGATIVE (NEGATIVE); PROTEIN 1+ mg/dL (NEGATIVE); SPECIFIC GRAVITY 1.015 (1.005-1.020); UROBILINOGEN NORMAL (NORMAL)
[2017-12-13 11:04] LABS: BACTERIA MANY /hpf (NONE SEEN); EPITHELIAL CELLS 0-5 /hpf (0-5); RED CELLS - URINE 0-5 /hpf (0-5); WHITE CELLS - URINE >50 /hpf (0-5)
[2017-12-13 15:13] VITALS: BP 103/48
[2017-12-13 20:00] VITALS: BP 101/29
[2017-12-14] VITALS: BP 104/40
[2017-12-14 04:00] VITALS: BP 94/39
[2017-12-14 05:26] LABS: BASOPHILS 0.2 % (0-2); EOSINOPHILS 2.7 % (0-7); HEMATOCRIT 25.1 % (36.0-48.0); HEMOGLOBIN 7.8 g/dL (12-16); IMMATURE GRANULOCYTES 0.8 % (0-5); LYMPHOCYTES 26.8 % (15-50); MCHC 31.1 g/dL (31.0-37.0); MCV 80.4 fL (80.0-100.0); MEAN PLATELET VOLUME 10.5 fL (7.4-10.4); MONOCYTES 12.4 % (2-11); NEUTROPHILS 57.1 % (40-80); PLATELET COUNT 186 10x3/uL (130-400); RBC 3.12 10x6/uL (4.00-5.40); RDW 18.2 % (11.5-14.5)
[2017-12-14 05:41] LABS: WBC 6.2 10x3/uL (4.8-10.8)
[2017-12-14 05:56] LABS: ALBUMIN 2.8 g/dL (3.4-5.0); ANION GAP 11.9 mmol/L (8-16); BILIRUBIN - TOTAL 0.5 mg/dL (0.2-1.3); CALCIUM 8.1 mg/dL (8.5-10.1); CARBON DIOXIDE 24.1 mmol/L (21.0-32.0); CREATININE - SERUM 0.9 mg/dL (0.6-1.3); PROTEIN - SERUM 6.2 g/dL (6.4-8.2)
[2017-12-14 07:35] VITALS: BP 98/41
[2017-12-14 11:16] VITALS: BP 105/47
[2017-12-14 12:46] LABS: APPEARANCE SLT CLOUDY (CLEAR); COLOR YELLOW (YELLOW)
[2017-12-14 12:47] LABS: BILIRUBIN NEGATIVE (NEGATIVE); GLUCOSE NEGATIVE (NEGATIVE); KETONE NEGATIVE (NEGATIVE); NITRITE NEGATIVE (NEGATIVE); PROTEIN NEGATIVE (NEGATIVE); UROBILINOGEN NORMAL (NORMAL)
[2017-12-14 12:48] LABS: WHITE CELLS - URINE 25-50 /hpf (0-5)
[2017-12-14 12:49] LABS: BACTERIA FEW /hpf (NONE SEEN); EPITHELIAL CELLS 0-5 /hpf (0-5); RED CELLS - URINE 0-5 /hpf (0-5)
[2017-12-14 16:17] VITALS: BP 108/43
[2017-12-14 20:00] VITALS: BP 123/62
[2017-12-15 04:00] VITALS: BP 126/47
[2017-12-15 05:01] LABS: BASOPHILS 0.1 % (0-2); EOSINOPHILS 1.9 % (0-7); IMMATURE GRANULOCYTES 0.9 % (0-5); LYMPHOCYTES 17.6 % (15-50); MCH 26.2 pg (26.0-34.0); MCHC 32.1 g/dL (31.0-37.0); MCV 81.5 fL (80.0-100.0); MEAN PLATELET VOLUME 10.3 fL (7.4-10.4); MONOCYTES 12.7 % (2-11); NEUTROPHILS 66.8 % (40-80); PLATELET COUNT 195 10x3/uL (130-400); RDW 17.5 % (11.5-14.5); WBC 6.9 10x3/uL (4.8-10.8)
[2017-12-15 05:07] LABS: HEMATOCRIT 30.8 % (36.0-48.0); HEMOGLOBIN 9.9 g/dL (12-16); RBC 3.78 10x6/uL (4.00-5.40)
[2017-12-15 05:38] LABS: ALBUMIN 2.9 g/dL (3.4-5.0); ALKALINE PHOSPHATASE 159 U/L (46-116); ALT (SGPT) 14 U/L (10-68); BILIRUBIN - TOTAL 0.74 mg/dL (0.2-1.3); CALC OSMOLALITY 274 mosm/kg (275-300); CARBON DIOXIDE 23.3 mmol/L (21.0-32.0); CHLORIDE - SERUM 101 mmol/L (98-107); CREATININE - SERUM 0.8 mg/dL (0.6-1.3); GLUCOSE 162 mg/dL (74-106); POTASSIUM - SERUM 4.1 mmol/L (3.5-5.1); PROTEIN - SERUM 6.6 g/dL (6.4-8.2); SODIUM 135 mmol/L (136-145); UREA NITROGEN 16 mg/dL (7-18); eGFR NON AFRICAN AMERICAN 77 mL/min (90-120)
[2017-12-15 08:35] VITALS: BP 111/48
[2017-12-15] MEDS ORDERED: LEVAQUIN500 MG PO (08:39)
[2017-12-15 11:40] VITALS: BP 122/49
[2017-12-20 18:02] VITALS: Ht 149.9 cm; Wt 81.2 kg
== END 2017-12-15 15:13 | disposition home health service (06) | DRG 433 ==
LOC: D.M2 09:54
PROVIDERS: Family Medicine; General Practice; Internal Medicine Gastroenterology; Radiology Diagnostic Radiology
PROC: 0W9G3ZZ Drainage of Peritoneal Cavity, Percutaneous Approach (ICD-10-PCS; principal; 2017-12-09 08:00)
DX: K74.60 Unspecified cirrhosis of liver (principal); R18.8 Other ascites; K75.81 Nonalcoholic steatohepatitis (NASH); E11.9 Type 2 diabetes mellitus without complications; I11.0 Hypertensive heart disease with heart failure; I50.9 Heart failure, unspecified; D50.9 Iron deficiency anemia, unspecified; N30.91 Cystitis, unspecified with hematuria; N75.0 Cyst of Bartholin's gland; J44.9 Chronic obstructive pulmonary disease, unspecified; K21.9 Gastro-esophageal reflux disease without esophagitis; E66.01 Morbid (severe) obesity due to excess calories; Z68.36 Body mass index [BMI] 36.0-36.9, adult; R19.7 Diarrhea, unspecified

== ENCOUNTER → 2017-12-17 12:18 | Outpatient (CLI) | payer MEDICAID ==
[2017-12-09 13:26] VITALS: BMI 36.1
[~2017-12-17 12:18] MED LIST changes: +CIPRO500 MG PO; +FLAGYL500 MG PO; +GLUCOPHAGE500 MG PO; +INSPRA25 MG PO; +LACTULOSE SOL 10G PO; +LANTUS INSULIN10 ML SC; +LEVAQUIN500 MG PO; +PEPCID20 MG PO
[2017-12-17 12:49] LABS: BASOPHILS 0 % (0-2); EOSINOPHILS 1.7 % (0-7); HEMATOCRIT 33.1 % (36.0-48.0); HEMOGLOBIN 10.5 g/dL (12-16); IMMATURE GRANULOCYTES 0.9 % (0-5); LYMPHOCYTES 22.9 % (15-50); MCH 26.6 pg (26.0-34.0); MCHC 31.7 g/dL (31.0-37.0); MONOCYTES 13.9 % (2-11); NEUTROPHILS 60.6 % (40-80); PLATELET COUNT 175 10x3/uL (130-400); RBC 3.94 10x6/uL (4.00-5.40); RDW 18.9 % (11.5-14.5); WBC 4.2 10x3/uL (4.8-10.8)
== END | disposition home or self-care (01) ==
LOC: D.LABREF 12:18
PROVIDERS: Family Medicine
DX: D64.9 Anemia, unspecified (principal); K74.60 Unspecified cirrhosis of liver; I50.9 Heart failure, unspecified

== ENCOUNTER → 2017-12-30 15:55 | Outpatient (CLI) | payer MEDICAID ==
[2017-12-09 13:26] VITALS: BMI 36.1
== END | disposition home or self-care (01) ==
LOC: D.LABREF 15:55
DX: N39.0 Urinary tract infection, site not specified (principal)

== ENCOUNTER → 2018-01-05 08:14 | Outpatient (CLI) | payer MEDICAID ==
[2017-12-09 13:26] VITALS: BMI 36.1
== END | disposition home or self-care (01) ==
LOC: D.CT 08:14
DX: N32.1 Vesicointestinal fistula (principal)

== ENCOUNTER 2018-01-07 15:50 | Inpatient (IN) | payer MEDICAID, OTHER ==
[~2018-01-07] VITALS: Ht 149.9 cm; Wt 85.3 kg
--- NOTE | ~2018-01-07 | DS ---
PATIENT:NGA LEWIS :55 MEDICAL RECORD: [id number] DISCHARGE SUMMARY ADMISSION DATE: 01/07/18 DISCHARGE DATE: 01/17/18 DATE OF ADMISSION: 01/07/2018 DATE OF DISCHARGE: 01/17/2018 CONDITION ON DISCHARGE: Improved. ADMITTING DIAGNOSES: Shortness of breath, nausea with abdominal pain. DISCHARGE DIAGNOSES: Diverticulitis with perforation and abscess, vesicointestinal fistula, anemia, nonalcoholic steatohepatitis, urinary incontinence, COPD, morbid obesity, heart failure, diabetes mellitus. CONSULTANTS: Dr. Alvarez Werner PROCEDURE: Resection of sigmoid colon, bypass sigmoid colon, percutaneous liver biopsy. HOSPITAL COURSE: This is a 62-year-old female who presents complaining of shortness of breath, nausea, abdominal pain. The patient admitted through the Emergency Room with abdominal pain. Urology consultation, gastroenterology as well as surgical consultation was performed. Abdominal CT scan revealed [id number]-mi-cezihqgb volume of ascites, hepatomegaly was present. The patient also had a CT of the abdomen as well as pelvis, which showed findings consistent with colovesical fistula, moderate intra-abdominal and pelvic ascites, umbilical hernia. The patient received IV antibiotics. The patient did undergo a Reid procedure by Dr. Werner. She did have a colostomy. It was to be reversed in 2-3 months after her initial surgery. On the 13 January, the patient did undergo Reid procedure with a sigmoid colectomy and liver biopsy. The patient tolerated the surgery well. On the , the patient was stable and it was felt she could be discharged. On the , her white count was 7.5, hemoglobin 9.2, hematocrit 28.5 and her platelets were 226. She had a sodium 136, potassium 4.3, chloride 106, CO2 was 22.8, BUN was 10, creatinine 0.7. The patient was therefore discharged. PHYSICAL EXAMINATION: VITAL SIGNS: The patient was afebrile. The vital signs were stable. GENERAL: She was alert and oriented times 3. HEENT: Unremarkable. NECK: Supple. There is no adenopathy. HEART: Regular rhythm. LUNGS: Clear. ABDOMEN: Soft. Diffusely tender. LABORATORY DATA: White count 7.6, hemoglobin 10, hematocrit 30.8, platelets were 171. Urinalysis showed greater than 50 wbc's per high powered field. DISCHARGE MEDICATIONS: She was discharged on Flagyl 500 mg q.8 hours times 7 days, Cipro 500 p.o. b.i.d. for 7 days, atorvastatin 20 mg once a day p.o. q.h.s., Lasix 40 mg p.o. every day, Klor-Con 20 mEq 1 p.o. every day, lisinopril 20 mg 1 p.o. every day, NovoLog sliding scale, Mobic 7.5 one-two p.o. every day DISCHARGE SUMMARY REPORT [id number] NGA LEWIS p.r.n. pain, Neurontin 600 mg p.o. t.i.d., carvedilol 12.5 mg p.o. b.i.d., ProAir HFA 90 mcg 2 puffs q.4 hours p.r.n. shortness of breath, Xifaxan 550 mg p.o. b.i.d., Inspra 25 mg p.o. every day, metformin 1000 mg in the morning and 1000 at night, Lantus 50 units subQ b.i.d. DIET: The patient was to be on a 2200 calorie diet. DISCHARGE INSTRUCTIONS: Checking blood sugars q.a.c. and q.h.s. ACTIVITIES: Her activities are ad-musa. FOLLOWUP: She would follow up with Dr. Werner next Friday. Call for an appointment with Dr. Vargas in 1 week. TRANSINT:[id number] Voice Confirmation ID: [id number] DOCUMENT ID: [id number] JOJO HINOJOSA MD at 0701 CC: [id number] DICTATION DATE: 02/15/18 144 SPECIALTY TRANSFORMER ASSEMBLER: 02/15/18 1920 DIS IN 01/17/18 [facility] [address] [place] [address]
--- NOTE | ~2018-01-07 | OP ---
PATIENT NAME: NGA LEWIS MEDICAL RECORD: [id number] :55 LOCATION:D.MS [facility] ADMISSION DATE:01/07/18 SURGEON: ALVAREZ SMILEY MD DATE OF OPERATION: 01/13/2018 PREOPERATIVE DIAGNOSES: 1. Colovesical fistula. 2. Acute diverticulitis. 3. Liver cirrhosis secondary to nonalcoholic steatohepatitis. 4. Anemia. 5. Anasarca. 6. Morbid obesity. 7. Congestive heart failure, undifferentiated. POSTOPERATIVE DIAGNOSES: 1. Colovesical fistula. 2. Acute diverticulitis. 3. Liver cirrhosis secondary to nonalcoholic steatohepatitis. 4. Anemia. 5. Anasarca. 6. Morbid obesity. 7. Congestive heart failure, undifferentiated. PROCEDURE: 1. Hand-assisted laparoscopic sigmoid colectomy. 2. Laparoscopic liver biopsy. SURGEON: Alvarez Smiley MD LOUVER MORTISER OPERATOR: Shaina Donaldson APRN REPORT OF PROCEDURE: The patient's abdomen was prepped and draped in sterile fashion. A skin incision was made on the inferior aspect of the abdomen in the midline. Electrocautery was used to dissect through the subcutaneous tissues and fascia and we bluntly entered the abdominal cavity. Once we entered the abdominal cavity, there was noted to be a significant amount of ascitic fluid that was present. This ascitic fluid was clear and yellow and did not appear to be infected. A GelPort was inserted, through this GelPort, I was able to do blunt dissection of the inflammatory adhesions to the anterior abdominal wall. We were able to take all these adhesions down and a GelPort was then inserted with 5-mm trocar within it. Through this, we were able to place a 5-mm trocar under direct visualization in the right upper quadrant and another 12-mm trocar just anterior to the right anterior superior iliac crest. The patient had some inflammatory changes and some dense adhesions of the sigmoid colon to what appeared to be the bladder. This was teased off with blunt dissection, revealing an abscess cavity. There was no purulent material present within it. The abscess pocket was irrigated out thoroughly with normal saline. I never saw any evidence of any spillage of urine during the case, but with a significant amount of ascitic fluid it would have been difficult to tell. The patient's sigmoid colon was then transected distally at the proximal rectum using a 45 blue load Endo-RADHA stapler. The mesentery was taken down with sequential fires of a 45 white load Endo-RADHA stapler. We eventually fired through the mid to proximal aspect of the sigmoid colon using a 45 blue load Endo GI stapler and sent the sigmoid colon off for specimen. We freed up the white line of Toldt on the left lateral abdomen and mobilized the left colon medially. We inspected OPERATIVE REPORT [id number] NGA LEWIS the patient's pelvis and left lower quadrant and there were a couple of bleeding sources which were tied off with 3-0 silk ligation. The patient's liver was then inspected. There did not appear to be any chronic cirrhotic changes present. The liver itself appeared to be normal in color with no cobblestoning and the edges were not sharp, but curved and the liver itself did not appear to be enlarged. Biopsies of the right lobe of the liver were taken times 4 with a 22 Dipak-Cut biopsy tool. We inspected the area and there was no sign of any bleeding from the liver at that time. We then irrigated out the abdomen one last time. We then made an opening in the left lower quadrant just inferior to the umbilicus in a circular fashion. Electrocautery was used then to dissect through the subcutaneous tissues to the anterior fascia. This fascia was opened up with a cruciate incision. The muscle fibers of the rectus sheath were opened up and the posterior fascia was opened up linearly. We then eviscerated the distal end of the colon through this opening and left it in position until we can mature it later in the case. The midline fascia was inspected and there was no sign of any bleeding present. The peritoneum was reapproximated with running locked 0 Vicryl. The fascia was then closed with a running #1 loop PDS's times 2. The subcutaneous tissues were irrigated out thoroughly and then reapproximated with interrupted 3-0 Vicryls. Prior to closure of the abdomen, a 19-Syriac David drain have been placed in the pelvis through the 5-mm trocar site and the tip of it was placed in the abscess pocket near the patient's bladder. This was sutured into place with a 3-0 silk. The sutures were then all closed with maria isabel. After the wounds were dressed, we then matured the ostomy. Using electrocautery, we opened up the distal end of the descending colon. This was done in a brooking fashion using multiple interrupted 4-0 Vicryls. At the conclusion of this, there did not appear to be any bleeding from the ostomy site, penetration of the ostomy showed it was open all the way through the patient's fascial layers. A new ostomy bag was applied. COMPLICATIONS: None. CONDITION: Stable. ANESTHESIA: General endotracheal. BLOOD LOSS: 300 mL. TRANSINT:[id number] Voice Confirmation ID: [id number] DOCUMENT ID: [id number] ALVAREZ SMILEY MD at 1052 CC: KHRIS COLE DO, SARA DELONG MD and PILAR MCINTOSH DO [id number] DICTATION DATE: 01/13/18 1648 RESIDENTIAL COORDINATOR: 01/13/18 1728 ADM IN [facility] [address] [place] [address]
[~2018-01-07 15:50] MED LIST changes: -CIPRO500 MG PO; -FLAGYL500 MG PO; -LACTULOSE SOL 10G PO
[2018-01-07 17:41] LABS: BASOPHILS 0.1 % (0-2); EOSINOPHILS 0.7 % (0-7); HEMATOCRIT 30.8 % (36.0-48.0); IMMATURE GRANULOCYTES 0.3 % (0-5); LYMPHOCYTES 13.7 % (15-50); MCHC 32.5 g/dL (31.0-37.0); MEAN PLATELET VOLUME 10.7 fL (7.4-10.4); NEUTROPHILS 75.2 % (40-80); PLATELET COUNT 171 10x3/uL (130-400); RBC 3.71 10x6/uL (4.00-5.40); RDW 17.4 % (11.5-14.5); WBC 7.6 10x3/uL (4.8-10.8)
[2018-01-07 17:51] LABS: INR 1.25 (0.85-1.17); PROTIME 15.2 SECONDS (11.6-15.0)
[2018-01-07 17:52] LABS: APTT 32.5 SECONDS (22.8-39.4)
[2018-01-07 18:00] LABS: ALBUMIN 3.4 g/dL (3.4-5.0); ANION GAP 17.2 mmol/L (8-16); BILIRUBIN - TOTAL 0.81 mg/dL (0.2-1.3); CALCIUM 8.5 mg/dL (8.5-10.1); CARBON DIOXIDE 24.4 mmol/L (21.0-32.0); CREATININE - SERUM 0.9 mg/dL (0.6-1.3); POTASSIUM - SERUM 4.6 mmol/L (3.5-5.1); PROTEIN - SERUM 7.4 g/dL (6.4-8.2)
[2018-01-07 18:01] LABS: APPEARANCE TURBID (CLEAR); BACTERIA MANY /hpf (NONE SEEN); BILIRUBIN NEGATIVE (NEGATIVE); COLOR YELLOW (YELLOW); EPITHELIAL CELLS 0-5 /hpf (0-5); GLUCOSE NEGATIVE (NEGATIVE); KETONE NEGATIVE (NEGATIVE); NITRITE NEGATIVE (NEGATIVE); PROTEIN 1+ mg/dL (NEGATIVE); RED CELLS - URINE 0-5 /hpf (0-5); UROBILINOGEN NORMAL (NORMAL); WHITE CELLS - URINE >50 /hpf (0-5)
[2018-01-07] MEDS ORDERED: LACTULOSE SOL 10G PO (21:21)
[2018-01-07 23:30] VITALS: BP 104/52; BMI 36.8
[2018-01-08 04:00] VITALS: BP 121/56
[2018-01-08 08:55] VITALS: BP 116/53
[2018-01-08 12:14] VITALS: BMI 36.5
[2018-01-08 12:23] VITALS: BP 109/41
[2018-01-08 13:38] VITALS: Ht 149.9 cm; Wt 85.3 kg
[2018-01-08 16:43] VITALS: BP 118/49
[2018-01-08 21:00] VITALS: BP 96/55
[2018-01-09 05:22] VITALS: BP 97/44
[2018-01-09 05:50] LABS: BASOPHILS 0.3 % (0-2); EOSINOPHILS 2.5 % (0-7); HEMATOCRIT 28.8 % (36.0-48.0); IMMATURE GRANULOCYTES 0.5 % (0-5); LYMPHOCYTES 30.8 % (15-50); MCH 26.2 pg (26.0-34.0); MCHC 31.3 g/dL (31.0-37.0); MCV 83.7 fL (80.0-100.0); MEAN PLATELET VOLUME 10.9 fL (7.4-10.4); MONOCYTES 12.1 % (2-11); NEUTROPHILS 53.8 % (40-80); PLATELET COUNT 179 10x3/uL (130-400); RBC 3.44 10x6/uL (4.00-5.40); RDW 17.6 % (11.5-14.5)
[2018-01-09 06:02] LABS: ALBUMIN 2.9 g/dL (3.4-5.0); ALKALINE PHOSPHATASE 142 U/L (46-116); BILIRUBIN - TOTAL 0.37 mg/dL (0.2-1.3); CALC OSMOLALITY 279 mosm/kg (275-300); CALCIUM 8.5 mg/dL (8.5-10.1); CARBON DIOXIDE 27.2 mmol/L (21.0-32.0); CHLORIDE - SERUM 104 mmol/L (98-107); CREATININE - SERUM 0.8 mg/dL (0.6-1.3); GLUCOSE 73 mg/dL (74-106); POTASSIUM - SERUM 4.3 mmol/L (3.5-5.1); PROTEIN - SERUM 6.3 g/dL (6.4-8.2); SODIUM 139 mmol/L (136-145); UREA NITROGEN 21 mg/dL (7-18); eGFR NON AFRICAN AMERICAN 77 mL/min (90-120)
[2018-01-09 06:05] LABS: ALT (SGPT) 10 U/L (10-68)
[2018-01-09 09:52] VITALS: BP 115/78
[2018-01-09 13:10] VITALS: BP 110/42
[2018-01-09 17:11] VITALS: BP 110/42
[2018-01-09 22:50] VITALS: BP 123/939
[2018-01-10 05:24] VITALS: BP 112/46
[2018-01-10 08:23] VITALS: BP 105/57
[2018-01-10 12:33] VITALS: BP 104/53
[2018-01-10 16:19] VITALS: BP 121/51
[2018-01-10 22:58] VITALS: BP 125/48
[2018-01-11 05:32] VITALS: BP 134/41
[2018-01-11 08:16] VITALS: BP 118/48
[2018-01-11 12:25] VITALS: BP 99/54
[2018-01-11 15:55] VITALS: BP 110/43
[2018-01-11 21:56] VITALS: BP 121/42
[2018-01-12 01:29] VITALS: BP 94/42
[2018-01-12 06:15] LABS: BASOPHILS 0.1 % (0-2); EOSINOPHILS 1.3 % (0-7); HEMATOCRIT 29.6 % (36.0-48.0); HEMOGLOBIN 9.3 g/dL (12-16); IMMATURE GRANULOCYTES 0.6 % (0-5); LYMPHOCYTES 17.1 % (15-50); MCH 26.4 pg (26.0-34.0); MCHC 31.4 g/dL (31.0-37.0); MCV 84.1 fL (80.0-100.0); MEAN PLATELET VOLUME 10.8 fL (7.4-10.4); MONOCYTES 13.4 % (2-11); NEUTROPHILS 67.5 % (40-80); PLATELET COUNT 194 10x3/uL (130-400); RBC 3.52 10x6/uL (4.00-5.40); RDW 18.3 % (11.5-14.5); WBC 7.1 10x3/uL (4.8-10.8)
[2018-01-12 06:39] LABS: ALBUMIN 2.9 g/dL (3.4-5.0); ALKALINE PHOSPHATASE 135 U/L (46-116); ALT (SGPT) 10 U/L (10-68); BILIRUBIN - TOTAL 0.48 mg/dL (0.2-1.3); CALC OSMOLALITY 274 mosm/kg (275-300); CALCIUM 8.2 mg/dL (8.5-10.1); CARBON DIOXIDE 25.8 mmol/L (21.0-32.0); CHLORIDE - SERUM 102 mmol/L (98-107); CREATININE - SERUM 0.7 mg/dL (0.6-1.3); GLUCOSE 80 mg/dL (74-106); PROTEIN - SERUM 6.4 g/dL (6.4-8.2); SODIUM 137 mmol/L (136-145); UREA NITROGEN 19 mg/dL (7-18); eGFR NON AFRICAN AMERICAN 90 mL/min (90-120)
[2018-01-12 09:41] VITALS: BP 109/48
[2018-01-12 13:12] VITALS: BP 98/77
[2018-01-12 17:17] VITALS: BP 111/44
[2018-01-12 23:01] VITALS: BP 107/48
[2018-01-13] VITALS (8 sets, daily range): BP systolic 104–136; BP diastolic 44–67
[2018-01-13 04:57] LABS: BASOPHILS 0 % (0-2); EOSINOPHILS 2.9 % (0-7); HEMATOCRIT 28.5 % (36.0-48.0); IMMATURE GRANULOCYTES 0.8 % (0-5); LYMPHOCYTES 25.9 % (15-50); MCH 26.4 pg (26.0-34.0); MCHC 31.6 g/dL (31.0-37.0); MCV 83.6 fL (80.0-100.0); MEAN PLATELET VOLUME 10.4 fL (7.4-10.4); MONOCYTES 13.9 % (2-11); NEUTROPHILS 56.5 % (40-80); PLATELET COUNT 193 10x3/uL (130-400); RBC 3.41 10x6/uL (4.00-5.40)
[2018-01-13 05:08] LABS: WBC 5.2 10x3/uL (4.8-10.8)
[2018-01-13 05:21] LABS: CALC OSMOLALITY 277 mosm/kg (275-300); CALCIUM 7.8 mg/dL (8.5-10.1); CARBON DIOXIDE 24.6 mmol/L (21.0-32.0); CHLORIDE - SERUM 103 mmol/L (98-107); CREATININE - SERUM 0.7 mg/dL (0.6-1.3); GLUCOSE 78 mg/dL (74-106); POTASSIUM - SERUM 3.6 mmol/L (3.5-5.1); SODIUM 139 mmol/L (136-145); eGFR NON AFRICAN AMERICAN 90 mL/min (90-120)
[2018-01-13 05:22] LABS: UREA NITROGEN 14 mg/dL (7-18)
[2018-01-13 18:47] LABS: BASOPHILS 0.1 % (0-2); EOSINOPHILS 0.6 % (0-7); HEMATOCRIT 29.3 % (36.0-48.0); IMMATURE GRANULOCYTES 0.7 % (0-5); LYMPHOCYTES 9.8 % (15-50); MCH 26.2 pg (26.0-34.0); MCHC 30.7 g/dL (31.0-37.0); MCV 85.4 fL (80.0-100.0); MEAN PLATELET VOLUME 10.2 fL (7.4-10.4); MONOCYTES 9.8 % (2-11); PLATELET COUNT 224 10x3/uL (130-400); RBC 3.43 10x6/uL (4.00-5.40); RDW 18.2 % (11.5-14.5)
[2018-01-13 19:05] LABS: CALC OSMOLALITY 286 mosm/kg (275-300); CALCIUM 7.4 mg/dL (8.5-10.1); CARBON DIOXIDE 25.6 mmol/L (21.0-32.0); CHLORIDE - SERUM 109 mmol/L (98-107); CREATININE - SERUM 0.7 mg/dL (0.6-1.3); POTASSIUM - SERUM 3.5 mmol/L (3.5-5.1); SODIUM 143 mmol/L (136-145); UREA NITROGEN 12 mg/dL (7-18); eGFR NON AFRICAN AMERICAN 90 mL/min (90-120)
[2018-01-13 19:16] LABS: GLUCOSE 132 mg/dL (74-106)
[2018-01-14 04:00] VITALS: BP 148/67
[2018-01-14 09:21] VITALS: BP 161/66
[2018-01-14 12:31] VITALS: BP 144/49; BP 98/45
[2018-01-14 16:53] VITALS: BP 127/50
[2018-01-14 20:00] VITALS: BP 112/41
[2018-01-15] VITALS (11 sets, daily range): BP systolic 99–127; BP diastolic 46–61
[2018-01-15 04:48] LABS: BASOPHILS 0 % (0-2); EOSINOPHILS 1.4 % (0-7); IMMATURE GRANULOCYTES 0.6 % (0-5); LYMPHOCYTES 17.4 % (15-50); MCH 26.5 pg (26.0-34.0); MCHC 31.6 g/dL (31.0-37.0); MEAN PLATELET VOLUME 9.7 fL (7.4-10.4); NEUTROPHILS 64.6 % (40-80); PLATELET COUNT 191 10x3/uL (130-400); RDW 18.2 % (11.5-14.5)
[2018-01-15 05:18] LABS: RBC 2.68 10x6/uL (4.00-5.40); WBC 4.9 10x3/uL (4.8-10.8)
[2018-01-15 05:19] LABS: ALBUMIN 1.9 g/dL (3.4-5.0); ALKALINE PHOSPHATASE 87 U/L (46-116); ALT (SGPT) 9 U/L (10-68); BILIRUBIN - TOTAL 0.47 mg/dL (0.2-1.3); CALC OSMOLALITY 271 mosm/kg (275-300); CALCIUM 7.3 mg/dL (8.5-10.1); CARBON DIOXIDE 22.2 mmol/L (21.0-32.0); CHLORIDE - SERUM 106 mmol/L (98-107); CREATININE - SERUM 0.7 mg/dL (0.6-1.3); HEMATOCRIT 22.5 % (36.0-48.0); HEMOGLOBIN 7.1 g/dL (12-16); POTASSIUM - SERUM 3.6 mmol/L (3.5-5.1); PROTEIN - SERUM 4.7 g/dL (6.4-8.2); SODIUM 137 mmol/L (136-145); UREA NITROGEN 11 mg/dL (7-18); eGFR NON AFRICAN AMERICAN 90 mL/min (90-120)
[2018-01-15 05:23] LABS: GLUCOSE 74 mg/dL (74-106)
[2018-01-16] VITALS (7 sets, daily range): BP systolic 118–142; BP diastolic 48–69
[2018-01-16 05:34] LABS: BASOPHILS 0.2 % (0-2); EOSINOPHILS 2.6 % (0-7); HEMATOCRIT 26.9 % (36.0-48.0); HEMOGLOBIN 8.7 g/dL (12-16); IMMATURE GRANULOCYTES 0.6 % (0-5); LYMPHOCYTES 14.5 % (15-50); MCH 27.1 pg (26.0-34.0); MCHC 32.3 g/dL (31.0-37.0); MCV 83.8 fL (80.0-100.0); MEAN PLATELET VOLUME 9.3 fL (7.4-10.4); MONOCYTES 10.7 % (2-11); NEUTROPHILS 71.4 % (40-80); PLATELET COUNT 183 10x3/uL (130-400); RBC 3.21 10x6/uL (4.00-5.40); WBC 6.5 10x3/uL (4.8-10.8)
[2018-01-16 07:07] LABS: ALBUMIN 1.9 g/dL (3.4-5.0); ALKALINE PHOSPHATASE 130 U/L (46-116); ALT (SGPT) 10 U/L (10-68); CALC OSMOLALITY 271 mosm/kg (275-300); CALCIUM 7.3 mg/dL (8.5-10.1); CHLORIDE - SERUM 105 mmol/L (98-107); CREATININE - SERUM 0.7 mg/dL (0.6-1.3); GLUCOSE 115 mg/dL (74-106); POTASSIUM - SERUM 3.5 mmol/L (3.5-5.1); SODIUM 136 mmol/L (136-145); UREA NITROGEN 9 mg/dL (7-18); eGFR NON AFRICAN AMERICAN 90 mL/min (90-120)
[2018-01-17 04:22] VITALS: BP 142/61
[2018-01-17 05:11] LABS: BASOPHILS 0.1 % (0-2); EOSINOPHILS 2.9 % (0-7); HEMATOCRIT 28.5 % (36.0-48.0); HEMOGLOBIN 9.2 g/dL (12-16); IMMATURE GRANULOCYTES 0.5 % (0-5); LYMPHOCYTES 10.1 % (15-50); MCH 27.2 pg (26.0-34.0); MCHC 32.3 g/dL (31.0-37.0); MCV 84.3 fL (80.0-100.0); MEAN PLATELET VOLUME 9.4 fL (7.4-10.4); MONOCYTES 8.4 % (2-11); RBC 3.38 10x6/uL (4.00-5.40); RDW 17.5 % (11.5-14.5); WBC 7.5 10x3/uL (4.8-10.8)
[2018-01-17 05:37] LABS: PLATELET COUNT 226 10x3/uL (130-400)
[2018-01-17 05:53] LABS: ALBUMIN 1.9 g/dL (3.4-5.0); ALKALINE PHOSPHATASE 129 U/L (46-116); ALT (SGPT) 9 U/L (10-68); CALCIUM 7.5 mg/dL (8.5-10.1); CARBON DIOXIDE 22.8 mmol/L (21.0-32.0); CHLORIDE - SERUM 106 mmol/L (98-107); CREATININE - SERUM 0.7 mg/dL (0.6-1.3); PROTEIN - SERUM 5.1 g/dL (6.4-8.2); SODIUM 136 mmol/L (136-145); UREA NITROGEN 10 mg/dL (7-18); eGFR NON AFRICAN AMERICAN 90 mL/min (90-120)
[2018-01-17 05:55] LABS: CALC OSMOLALITY 276 mosm/kg (275-300); GLUCOSE 203 mg/dL (74-106); POTASSIUM - SERUM 4.3 mmol/L (3.5-5.1)
[2018-01-17 09:30] VITALS: BP 132/66
[2018-01-17] MEDS ORDERED: CIPRO500 MG PO (09:34)
[2018-01-17] MEDS ORDERED: FLAGYL500 MG PO (09:34)
== END 2018-01-17 15:00 | disposition home health service (06) | DRG 330 ==
LOC: D.ER 15:50 → D.MS 19:46 → D.EDHOLD 19:46 → D.MS 20:15
PROVIDERS: Family Medicine; Physician Assistant; Surgery
PROC: 0FB03ZX Excision of Liver, Percutaneous Approach, Diagnostic (ICD-10-PCS; 2018-01-13)
PROC: 0DTN0ZZ Resection of Sigmoid Colon, Open Approach (ICD-10-PCS; principal; 2018-01-13 12:00)
PROC: 0D1N0Z4 Bypass Sigmoid Colon to Cutaneous, Open Approach (ICD-10-PCS; 2018-01-13 12:00)
DX: K57.20 Diverticulitis of large intestine with perforation and abscess without bleeding (principal); N32.1 Vesicointestinal fistula; R18.8 Other ascites; D64.9 Anemia, unspecified; K74.60 Unspecified cirrhosis of liver; K75.81 Nonalcoholic steatohepatitis (NASH); R32 Unspecified urinary incontinence; J44.9 Chronic obstructive pulmonary disease, unspecified; E11.9 Type 2 diabetes mellitus without complications; Z79.4 Long term (current) use of insulin; I50.9 Heart failure, unspecified; E66.01 Morbid (severe) obesity due to excess calories; Z68.36 Body mass index [BMI] 36.0-36.9, adult

== ENCOUNTER 2018-01-17 22:12 | Emergency (ER) | payer OTHER ==
[2018-01-08 13:38] VITALS: BMI 36.5
[~2018-01-17 22:12] MED LIST changes: +CIPRO500 MG PO; +FLAGYL500 MG PO; +LACTULOSE SOL 10G PO
== END 2018-01-17 23:52 | disposition home or self-care (01) ==
LOC: D.ER 22:12
DX: G89.18 Other acute postprocedural pain (principal); J44.9 Chronic obstructive pulmonary disease, unspecified; E11.9 Type 2 diabetes mellitus without complications; I10 Essential (primary) hypertension

== ENCOUNTER 2018-01-18 20:02 | Emergency (ER) | payer OTHER ==
[2018-01-08 13:38] VITALS: BMI 36.5
== END 2018-01-18 22:05 | disposition home or self-care (01) ==
LOC: D.ER 20:02
DX: F41.9 Anxiety disorder, unspecified (principal); G89.18 Other acute postprocedural pain; I10 Essential (primary) hypertension; J44.9 Chronic obstructive pulmonary disease, unspecified; E11.9 Type 2 diabetes mellitus without complications; Z79.4 Long term (current) use of insulin

== ENCOUNTER → 2018-01-20 09:21 | Outpatient (CLI) | payer OTHER ==
[2018-01-08 13:38] VITALS: BMI 36.5
== END | disposition home or self-care (01) ==
LOC: D.RAD 08:30
DX: K63.2 Fistula of intestine (principal)

== ENCOUNTER 2018-02-02 02:13 | Emergency (ER) | payer OTHER ==
[2018-01-08 13:38] VITALS: BMI 36.5
[2018-02-02 02:47] LABS: BASOPHILS 0.5 % (0-2); HEMATOCRIT 31.5 % (36.0-48.0); HEMOGLOBIN 9.7 g/dL (12-16); IMMATURE GRANULOCYTES 0.3 % (0-5); LYMPHOCYTES 21.6 % (15-50); MCH 27.4 pg (26.0-34.0); MCHC 30.8 g/dL (31.0-37.0); MEAN PLATELET VOLUME 10.1 fL (7.4-10.4); MONOCYTES 11.7 % (2-11); NEUTROPHILS 54.9 % (40-80); PLATELET COUNT 235 10x3/uL (130-400); RBC 3.54 10x6/uL (4.00-5.40); WBC 5.7 10x3/uL (4.8-10.8)
== END 2018-02-02 03:42 | disposition home or self-care (01) ==
LOC: D.ER 02:13
PROVIDERS: Emergency Medicine
DX: R10.9 Unspecified abdominal pain (principal); D64.9 Anemia, unspecified; I10 Essential (primary) hypertension

== ENCOUNTER 2018-02-20 17:29 | Emergency (ER) | payer OTHER ==
[~2018-02-20] VITALS: Ht 149.9 cm; Wt 80.0 kg
[2018-02-20 17:55] VITALS: Ht 149.9 cm; Wt 80.0 kg
[2018-02-20 18:53] LABS: BASOPHILS 0.3 % (0-2); EOSINOPHILS 4.6 % (0-7); HEMATOCRIT 35.2 % (36.0-48.0); IMMATURE GRANULOCYTES 0.2 % (0-5); LYMPHOCYTES 19.6 % (15-50); MCH 28.1 pg (26.0-34.0); MCHC 31.3 g/dL (31.0-37.0); MCV 89.8 fL (80.0-100.0); MEAN PLATELET VOLUME 11.8 fL (7.4-10.4); MONOCYTES 11.6 % (2-11); NEUTROPHILS 63.7 % (40-80); PLATELET COUNT 217 10x3/uL (130-400); RBC 3.92 10x6/uL (4.00-5.40); RDW 15.6 % (11.5-14.5); WBC 6.1 10x3/uL (4.8-10.8)
[2018-02-20 19:08] LABS: ALBUMIN 3.6 g/dL (3.4-5.0); ALKALINE PHOSPHATASE 146 U/L (46-116); ALT (SGPT) 16 U/L (10-68); AMYLASE - SERUM 39 U/L (25-115); CALC OSMOLALITY 282 mosm/kg (275-300); CALCIUM 8.9 mg/dL (8.5-10.1); CARBON DIOXIDE 28.7 mmol/L (21.0-32.0); CHLORIDE - SERUM 104 mmol/L (98-107); CKMB 0.6 U/L (0.0-3.6); CREATINE KINASE 31 UL (21-215); CREATININE - SERUM 0.7 mg/dL (0.6-1.3); LIPASE 88 U/L (73-393); POTASSIUM - SERUM 4.3 mmol/L (3.5-5.1); PROTEIN - SERUM 7.2 g/dL (6.4-8.2); SODIUM 141 mmol/L (136-145); TROPONIN-I < 0.017 ng/mL (0.000-0.060); UREA NITROGEN 21 mg/dL (7-18); eGFR NON AFRICAN AMERICAN 90 mL/min (90-120)
[2018-02-20 19:09] LABS: GLUCOSE 84 mg/dL (74-106)
[2018-02-20 23:01] VITALS: BP 126/58
[2018-03-16] MEDS ORDERED: PEPCID20 MG PO (09:47)
[2018-03-16] MEDS ORDERED: KLOR-CON M2020 MEQ PO (09:48)
[2018-03-16] MEDS ORDERED: COREG25 MG PO (09:50)
== END 2018-02-20 23:03 | disposition home or self-care (01) ==
LOC: D.ER 17:29
PROVIDERS: Family Medicine
DX: F41.9 Anxiety disorder, unspecified (principal); R10.9 Unspecified abdominal pain; Z93.3 Colostomy status; E11.9 Type 2 diabetes mellitus without complications; I10 Essential (primary) hypertension; I50.9 Heart failure, unspecified

== ENCOUNTER → 2018-02-25 10:49 | Outpatient (CLI) | payer OTHER ==
[2018-02-20 17:55] VITALS: BMI 35.6
[~2018-02-25 10:49] MED LIST changes: +COREG25 MG PO; +HUMALOG 30100 UNITS/ SC; +HYDROCODONE-APA1 TAB PO
[2018-02-25 12:05] LABS: APPEARANCE CLEAR (CLEAR); BILIRUBIN NEGATIVE (NEGATIVE); COLOR YELLOW (YELLOW); GLUCOSE NEGATIVE (NEGATIVE); KETONE NEGATIVE (NEGATIVE); NITRITE NEGATIVE (NEGATIVE); PROTEIN NEGATIVE (NEGATIVE); UROBILINOGEN NORMAL (NORMAL)
== END | disposition home or self-care (01) ==
LOC: D.LAB 10:49
PROVIDERS: Surgery
DX: R30.0 Dysuria (principal)

== ENCOUNTER 2018-03-07 16:41 | Observation (INO) | payer OTHER ==
[~2018-03-07] VITALS: Ht 149.9 cm; Wt 86.2 kg
--- NOTE | ~2018-03-07 | HP ---
PATIENT: NGA LEWIS MEDICAL RECORD: [id number] ACCOUNT: [id number] LOCATION:[address] : 55 ADMISSION DATE: 03/07/18 HISTORY AND PHYSICAL EXAMINATION HISTORY OF PRESENT ILLNESS: A 62-year-old female who presents with progressive shortness of breath over the past week and bilateral lower extremity edema. Past medical history significant for advanced cirrhosis. She has a history of CHF with just marginal decline of 45-50% ejection fraction, no acute changes there. She also has a colostomy and scheduled for a colostomy takedown in first part of March. ALLERGIES: REPORTED MORPHINE, DARVOCET AND SODIUM HYPOCHLORITE. MEDICATIONS: Rifaximin, albuterol inhaler, atorvastatin, Lasix, potassium supplements, lisinopril, sliding scale insulin, Lantus 50 units subQ b.i.d., metformin, Inspra, gabapentin. PAST MEDICAL HISTORY: Significant for cataracts, diabetes, ascites, hypertension, CHF, COPD, depression, and osteoarthritis. PAST SURGICAL HISTORY: Colostomy as noted above, hysterectomy. FAMILY HISTORY: Noncontributory. SOCIAL HISTORY: Denies alcohol. Denies tobacco. REVIEW OF SYSTEMS: GENERAL: Reported weight gain approximately 6-10 pounds. HEENT: No cephalgia, visual changes, tinnitus, epistaxis, or dysphagia. CARDIOVASCULAR: Denies chest pain. Admits progressive shortness of breath over the past week. Denies hemoptysis. PULMONARY: Denies hemoptysis. Admits to progressive shortness of breath as above. GASTROINTESTINAL: Denies hematemesis, hematochezia or melena. History of the colostomy with scheduled takedown, history of cirrhosis with recurrent ascites. She has had paracentesis in the past. She is also on diuretics. GENITOURINARY: Denies dysuria. MUSCULOSKELETAL: No acute changes. ENDOCRINE: Diabetes mellitus, insulin-dependent. PHYSICAL EXAMINATION: VITAL SIGNS: Temp 97.2, blood pressures 148/54, heart rate 59, respirations 20, O2 sats 95% on room air. GENERAL: Alert, oriented, no acute distress, in supine position. HEENT: Normocephalic, atraumatic. Eyes: Pupils equal, round, reactive. Ears: Canals patent. TMs are intact. Nose: Nares patent without drainage. Throat: No erythema, no exudates. NECK: Supple. No lymphadenopathy, no JVD. HEART: Regular, mild bradycardia. No S3, S4. No rub. LUNGS: Clear to auscultation bilaterally. Breathing is nonlabored. ABDOMEN: Soft, positive fluid wave, morbidly obese. EXTREMITIES: Present times 4, edematous. NEUROLOGIC: No focal deficits. SKIN: Warm and dry. No rash. HISTORY AND PHYSICAL [id number] NGA LEWIS LABORATORY DATA: EKG: Sinus rhythm, mild bradycardia with a rate of 59, no acute changes. CBC: White count 5.2, hemoglobin 10.2, hematocrit 32.8, platelets 170. Chemistry shows a sodium of 142, potassium 3.7, chloride 106, bicarbonate 28.7, BUN 16, creatinine 0.7. AST 9, ALT 13. Albumin 3.4. Urinalysis: Yellow, clear, normal UA. CBC: White count 5.2, hemoglobin 10.7, hematocrit 33.7, platelets 164, this was a repeat. ASSESSMENT AND PLAN: 1. Advanced cirrhosis with recurrent ascites, progressive shortness of breath with weight gain. We will consult interventional radiology for therapeutic paracentesis. General surgery was consulted through the Emergency Room with her colostomy and ascites as well. 2. Insulin-dependent diabetes. We will decrease her long-acting insulin with her likely being held n.p.o. for procedures. Continue sliding scale insulin. We will hold metformin with liver and heart disease. The patient is admitted as above. Plan as above. TRANSINT:[id number] Voice Confirmation ID: [id number] DOCUMENT ID: [id number] SARA FLYNN DO at 1753 CC: [id number] DICTATION DATE: 03/08/18 1348 NETWORK OPERATIONS PROJECT MANAGER: 03/08/18 1423 ADM IN [facility] [address] [place] [address]
--- NOTE | ~2018-03-07 | DS ---
PATIENT:NGA LEWIS :55 MEDICAL RECORD: [id number] DISCHARGE SUMMARY ADMISSION DATE: 03/07/18 DISCHARGE DATE: 03/10/18 DATE OF ADMISSION: 03/07/2018 DATE OF DISCHARGE: 03/10/2018. ADMISSION DIAGNOSES: Cirrhosis with recurrent ascites, progressive shortness of breath with weight gain, insulin-dependent diabetes, CHF. DISCHARGE DIAGNOSES: Cirrhosis with recurrent ascites, insulin-dependent diabetes, history of CHF. CONSULTS: General surgery ordered through the Emergency Room and interventional radiology for evaluation for paracentesis. HOSPITAL COURSE: The patient had an uneventful hospital course. She was aggressively diuresed in the Emergency Room waiting admission, she was evaluated for paracentesis, possible drain with her recurrent ascites. No amenable fluid pockets were located. No paracentesis performed. The patient responded well to diuresis. The patient is anxious to go home. She is scheduled for surgery next week for colostomy takedown with Dr. Werner. She is discharged to home in improved condition. VITAL SIGNS ON DISCHARGE: Temperature 97.9, blood pressure 140/83, heart rate 67, respirations 16, O2 sats 96% room air. LABORATORY DATA: CBC: White count 5.1, hemoglobin 10, hematocrit 32, platelets 181. Glucose 111. Chemistry shows a sodium 140, potassium 3.8, chloride 105, bicarbonate 28.8, BUN 15, creatinine 0.9. The patient will follow up with Dr. Vargas next week. MEDICATIONS: Per med rec. See chart for further details. Agree with assessments by interventional radiology and general surgery. TRANSINT:[id number] Voice Confirmation ID: [id number] DOCUMENT ID: [id number] SARA FLYNN DO at 0822 CC: [id number] DICTATION DATE: 03/10/18 0815 HEAD ESTHETICIAN: 03/10/18 1334 DIS IN 03/10/18 [address] [id number] [place] [address]
[~2018-03-07 16:41] MED LIST changes: -COREG25 MG PO; -HUMALOG 30100 UNITS/ SC; -HYDROCODONE-APA1 TAB PO
[2018-03-07 17:53] LABS: BASOPHILS 0.2 % (0-2); EOSINOPHILS 4.3 % (0-7); HEMATOCRIT 33.7 % (36.0-48.0); HEMOGLOBIN 10.7 g/dL (12-16); IMMATURE GRANULOCYTES 0.2 % (0-5); LYMPHOCYTES 21.9 % (15-50); MCH 28.8 pg (26.0-34.0); MCHC 31.8 g/dL (31.0-37.0); MCV 90.6 fL (80.0-100.0); MEAN PLATELET VOLUME 11.6 fL (7.4-10.4); MONOCYTES 10.9 % (2-11); NEUTROPHILS 62.5 % (40-80); RBC 3.72 10x6/uL (4.00-5.40); RDW 15.3 % (11.5-14.5); WBC 5.2 10x3/uL (4.8-10.8)
[2018-03-07 17:57] LABS: PLATELET COUNT 164 10x3/uL (130-400)
[2018-03-07 18:08] LABS: ALBUMIN 3.3 g/dL (3.4-5.0); ALKALINE PHOSPHATASE 130 U/L (46-116); ALT (SGPT) 12 U/L (10-68); BILIRUBIN - TOTAL 0.43 mg/dL (0.2-1.3); CALC OSMOLALITY 285 mosm/kg (275-300); CALCIUM 8.6 mg/dL (8.5-10.1); CARBON DIOXIDE 28.2 mmol/L (21.0-32.0); CHLORIDE - SERUM 105 mmol/L (98-107); GLUCOSE 169 mg/dL (74-106); POTASSIUM - SERUM 3.9 mmol/L (3.5-5.1); PROTEIN - SERUM 6.8 g/dL (6.4-8.2); SODIUM 141 mmol/L (136-145); UREA NITROGEN 16 mg/dL (7-18); eGFR NON AFRICAN AMERICAN 59 mL/min (90-120)
[2018-03-07 18:19] LABS: CKMB 0.9 U/L (0.0-3.6); CREATINE KINASE 32 UL (21-215); PRO BNP 1425 pg/mL (0-125)
[2018-03-07 18:20] LABS: TROPONIN-I < 0.017 ng/mL (0.000-0.060)
[2018-03-07 20:00] VITALS: BP 119/78
[2018-03-07 22:01] VITALS: BP 121/80
[2018-03-07 23:07] LABS: APPEARANCE CLEAR (CLEAR); BILIRUBIN NEGATIVE (NEGATIVE); COLOR YELLOW (YELLOW); GLUCOSE NEGATIVE (NEGATIVE); KETONE NEGATIVE (NEGATIVE); NITRITE NEGATIVE (NEGATIVE); PROTEIN NEGATIVE (NEGATIVE); SPECIFIC GRAVITY 1.015 (1.005-1.020); UROBILINOGEN NORMAL (NORMAL)
[2018-03-07] MEDS ORDERED: HUMALOG 30100 UNITS/ SC (23:55)
[2018-03-08 05:49] VITALS: BP 135/53; BMI 38.4
[2018-03-08 06:25] VITALS: BP 113/50
[2018-03-08 06:48] LABS: BASOPHILS 0.2 % (0-2); EOSINOPHILS 4.4 % (0-7); HEMATOCRIT 32.8 % (36.0-48.0); HEMOGLOBIN 10.2 g/dL (12-16); IMMATURE GRANULOCYTES 0.2 % (0-5); LYMPHOCYTES 25.5 % (15-50); MCH 27.9 pg (26.0-34.0); MCHC 31.1 g/dL (31.0-37.0); MCV 89.9 fL (80.0-100.0); MEAN PLATELET VOLUME 12.2 fL (7.4-10.4); MONOCYTES 12.2 % (2-11); NEUTROPHILS 57.5 % (40-80); PLATELET COUNT 170 10x3/uL (130-400); RBC 3.65 10x6/uL (4.00-5.40); RDW 15.3 % (11.5-14.5); WBC 5.2 10x3/uL (4.8-10.8)
[2018-03-08 07:04] LABS: ALBUMIN 3.4 g/dL (3.4-5.0); ALKALINE PHOSPHATASE 125 U/L (46-116); ALT (SGPT) 13 U/L (10-68); CALC OSMOLALITY 285 mosm/kg (275-300); CALCIUM 8.5 mg/dL (8.5-10.1); CARBON DIOXIDE 28.7 mmol/L (21.0-32.0); CHLORIDE - SERUM 106 mmol/L (98-107); CREATININE - SERUM 0.7 mg/dL (0.6-1.3); GLUCOSE 133 mg/dL (74-106); POTASSIUM - SERUM 3.7 mmol/L (3.5-5.1); PROTEIN - SERUM 6.9 g/dL (6.4-8.2); SODIUM 142 mmol/L (136-145); UREA NITROGEN 16 mg/dL (7-18); eGFR NON AFRICAN AMERICAN 90 mL/min (90-120)
[2018-03-08 09:01] VITALS: BP 148/54
[2018-03-08 20:30] VITALS: BP 133/50
[2018-03-09 04:30] VITALS: BP 117/60
[2018-03-09 04:44] LABS: BASOPHILS 0.2 % (0-2); HEMATOCRIT 33.4 % (36.0-48.0); HEMOGLOBIN 10.5 g/dL (12-16); IMMATURE GRANULOCYTES 0.2 % (0-5); LYMPHOCYTES 26.6 % (15-50); MCH 27.9 pg (26.0-34.0); MCHC 31.4 g/dL (31.0-37.0); MCV 88.6 fL (80.0-100.0); MEAN PLATELET VOLUME 11.8 fL (7.4-10.4); MONOCYTES 10.5 % (2-11); NEUTROPHILS 57.5 % (40-80); PLATELET COUNT 189 10x3/uL (130-400); RBC 3.77 10x6/uL (4.00-5.40); WBC 5.5 10x3/uL (4.8-10.8)
[2018-03-09 04:46] LABS: APTT 31.9 SECONDS (22.8-39.4); INR 1.14 (0.85-1.17); PROTIME 14.2 SECONDS (11.6-15.0)
[2018-03-09 04:54] LABS: CALC OSMOLALITY 281 mosm/kg (275-300); CALCIUM 8.7 mg/dL (8.5-10.1); CARBON DIOXIDE 28.2 mmol/L (21.0-32.0); CHLORIDE - SERUM 105 mmol/L (98-107); CREATININE - SERUM 0.7 mg/dL (0.6-1.3); GLUCOSE 160 mg/dL (74-106); MAGNESIUM - SERUM 2.6 mg/dL (1.8-2.4); POTASSIUM - SERUM 3.7 mmol/L (3.5-5.1); SODIUM 140 mmol/L (136-145); UREA NITROGEN 13 mg/dL (7-18); eGFR NON AFRICAN AMERICAN 90 mL/min (90-120)
[2018-03-09 08:40] VITALS: BP 127/48
[2018-03-09 10:03] LABS: APPEARANCE HAZY (CLEAR); BILIRUBIN NEGATIVE (NEGATIVE); COLOR YELLOW (YELLOW); GLUCOSE NEGATIVE (NEGATIVE); KETONE NEGATIVE (NEGATIVE); NITRITE NEGATIVE (NEGATIVE); PROTEIN NEGATIVE (NEGATIVE); UROBILINOGEN NORMAL (NORMAL)
[2018-03-09 10:04] LABS: BACTERIA FEW /hpf (NONE SEEN); EPITHELIAL CELLS 0-5 /hpf (0-5); MUCUS <1+ /lpf (NONE SEEN); WHITE CELLS - URINE 0-5 /hpf (0-5); YEAST <1+ /hpf (NONE SEEN)
[2018-03-09 12:28] VITALS: BP 142/62
[2018-03-09 13:53] VITALS: Ht 149.9 cm; Wt 86.2 kg
[2018-03-09 16:39] VITALS: BP 148/59
[2018-03-09 20:00] VITALS: BP 129/54
[2018-03-09 23:56] VITALS: BP 124/61
[2018-03-10 04:00] VITALS: BP 114/54
[2018-03-10 04:30] LABS: BASOPHILS 0.2 % (0-2); EOSINOPHILS 5.3 % (0-7); IMMATURE GRANULOCYTES 0.2 % (0-5); LYMPHOCYTES 23.6 % (15-50); MCH 27.9 pg (26.0-34.0); MCHC 31.3 g/dL (31.0-37.0); MCV 89.1 fL (80.0-100.0); MEAN PLATELET VOLUME 11.4 fL (7.4-10.4); NEUTROPHILS 59.7 % (40-80); PLATELET COUNT 181 10x3/uL (130-400); RBC 3.59 10x6/uL (4.00-5.40); WBC 5.1 10x3/uL (4.8-10.8)
[2018-03-10 04:52] LABS: CALCIUM 8.6 mg/dL (8.5-10.1); CARBON DIOXIDE 28.8 mmol/L (21.0-32.0); POTASSIUM - SERUM 3.8 mmol/L (3.5-5.1)
[2018-03-10 04:55] LABS: CREATININE - SERUM 0.9 mg/dL (0.6-1.3)
[2018-03-10 08:00] VITALS: BP 140/83
[2018-03-16] MEDS ORDERED: PEPCID20 MG PO (09:47)
[2018-03-16] MEDS ORDERED: KLOR-CON M2020 MEQ PO (09:48)
[2018-03-16] MEDS ORDERED: COREG25 MG PO (09:50)
== END 2018-03-10 11:00 | disposition home health service (06) ==
LOC: D.ER 16:41 → D.M2 21:27 → OBSVTIME 21:27 → D.M2 21:27
PROVIDERS: Emergency Medicine; Family Medicine
DX: K74.60 Unspecified cirrhosis of liver (principal); R18.8 Other ascites; Z93.3 Colostomy status; E66.01 Morbid (severe) obesity due to excess calories; Z68.38 Body mass index [BMI] 38.0-38.9, adult; F41.9 Anxiety disorder, unspecified; F32.9 Major depressive disorder, single episode, unspecified; I11.0 Hypertensive heart disease with heart failure; I50.9 Heart failure, unspecified; J44.9 Chronic obstructive pulmonary disease, unspecified; E11.9 Type 2 diabetes mellitus without complications; Z79.4 Long term (current) use of insulin; K72.90 Hepatic failure, unspecified without coma

== ENCOUNTER 2018-03-17 07:40 | Inpatient (IN) | payer OTHER ==
[2018-03-16 10:17] LABS: BASOPHILS 0.2 % (0-2); EOSINOPHILS 4.5 % (0-7); HEMATOCRIT 34.6 % (36.0-48.0); HEMOGLOBIN 10.8 g/dL (12-16); IMMATURE GRANULOCYTES 0.2 % (0-5); LYMPHOCYTES 21.4 % (15-50); MCH 28.4 pg (26.0-34.0); MCHC 31.2 g/dL (31.0-37.0); MCV 91.1 fL (80.0-100.0); MONOCYTES 10.6 % (2-11); NEUTROPHILS 63.1 % (40-80); PLATELET COUNT 183 10x3/uL (130-400); RDW 15.5 % (11.5-14.5); WBC 4.6 10x3/uL (4.8-10.8)
[2018-03-16 10:30] LABS: APTT 30.3 SECONDS (22.8-39.4); INR 1.2 (0.85-1.17); PROTIME 14.8 SECONDS (11.6-15.0)
[2018-03-16 10:46] LABS: ALBUMIN 3.5 g/dL (3.4-5.0); ALKALINE PHOSPHATASE 175 U/L (46-116); ALT (SGPT) 17 U/L (10-68); BILIRUBIN - TOTAL 0.49 mg/dL (0.2-1.3); CALC OSMOLALITY 283 mosm/kg (275-300); CALCIUM 8.6 mg/dL (8.5-10.1); CARBON DIOXIDE 31.4 mmol/L (21.0-32.0); CHLORIDE - SERUM 105 mmol/L (98-107); CREATININE - SERUM 0.8 mg/dL (0.6-1.3); GLUCOSE 100 mg/dL (74-106); POTASSIUM - SERUM 4.4 mmol/L (3.5-5.1); PROTEIN - SERUM 7.2 g/dL (6.4-8.2); SODIUM 141 mmol/L (136-145); UREA NITROGEN 20 mg/dL (7-18); eGFR NON AFRICAN AMERICAN 77 mL/min (90-120)
[~2018-03-17] VITALS: Ht 149.9 cm; Wt 91.0 kg
--- NOTE | ~2018-03-17 | DS ---
PATIENT:NGA LEWIS :55 MEDICAL RECORD: [id number] DISCHARGE SUMMARY ADMISSION DATE: 03/17/18 DISCHARGE DATE: 03/23/18 DATE OF ADMISSION: 03/17/2018 DATE OF DISCHARGE: 03/23/2018 ADMISSION DIAGNOSES: 1. Colostomy. 2. History of vesicocolonic fistula. 3. History of diverticulitis. 4. Ascites. 5. Morbid obesity. DISCHARGE DIAGNOSES: 1. Colostomy. 2. History of vesicocolonic fistula. 3. History of diverticulitis. 4. Ascites. 5. Morbid obesity. PROCEDURE: Open colostomy takedown. CONSULTATIONS: None. REPORT OF HOSPITALIZATION: The patient was admitted to the hospital after a successful colostomy takedown after a Reid's was done previously for a colovesical fistula. The patient had a fairly normal postoperative course. The patient had return of bowel function fairly quickly, at which point, she was started on clear liquid diet. When she was tolerating this, then we were able to advance slowly. She was ambulating with the assistance of physical therapy. She had a wound in the left lower quadrant from the ostomy site, which was being packed daily. She had no signs of infection and as time approached her departure, she was ambulating without assistance and was tolerating regular food. At that point, the patient was felt to be stable for discharge home. DISCHARGE INSTRUCTIONS: She will return to clinic or call if any questions or concerns, fevers, chills, nausea, vomiting, or worsening abdominal pain. Also, she needs to pack the wound to the left lower quadrant daily with the help of home health. DISCHARGE MEDICATIONS: Resume home medications with the inclusion of Coppell 10s. DIET: Regular. ACTIVITIES: No heavy lifting or straining for 6 weeks postoperatively. FOLLOWUP: Follow up is in clinic with me in 10-14 days. TRANSINT:[id number] Voice Confirmation ID: [id number] DOCUMENT ID: [id number] DISCHARGE SUMMARY REPORT [id number] NGA LEWIS CHRISTIAN MD at 0918 CC: [id number] DICTATION DATE: 04/09/18 0811 PRODUCT HANDLER: 04/09/18 0820 DIS IN 03/23/18 [place] [address]
--- NOTE | ~2018-03-17 | OP ---
PATIENT NAME: NGA LEWIS MEDICAL RECORD: [id number] :55 LOCATION:D.MS [id number] ADMISSION DATE:03/17/18 SURGEON: ALVAREZ SMILEY MD DATE OF OPERATION: 03/17/2018 PREOPERATIVE DIAGNOSES: 1. Colostomy. 2. 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 3. Diverticulitis of the sigmoid colon. 4. Ascites. 5. Morbid obesity. 6. Hypertension. 7. Diabetes mellitus. POSTOPERATIVE DIAGNOSES: 1. Colostomy. 2. 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 3. Diverticulitis of the sigmoid colon. 4. Ascites. 5. Morbid obesity. 6. Hypertension. 7. Diabetes mellitus. PROCEDURE: 1. Colostomy takedown. 2. Lysis of adhesions times 2 hours. SURGEON: Alvarez Smiley MD REPORT OF PROCEDURE: The patient's abdomen and pelvis were prepped and draped in sterile fashion. A low midline incision was made using electrocautery, dissected through the subcutaneous tissues and fascia into the abdominal cavity. We encountered dense amount of adhesions that were present and these were taken down with either careful blunt dissection or with sharp dissection. We were eventually able to free up all of the adhesions in the patient's left abdomen and pelvis. With this, we were able to localize around the patient's indwelling colostomy in the left lower quadrant. Using electrocautery, we made a circular incision around the colostomy and dissected down through the fascia and released the colostomy into the abdominal cavity. The patient's pelvis was then inspected. We were able to free up the pelvic adhesions and eventually got the rectum free from any surrounding attachments which were present including some attachments to the patient's bladder. Once this was done, then we mobilized the splenic flexure. The colon easily laid down in the pelvis at this point. We then transected the distal descending colon using electrocautery and placed a pursestring using a 2-0 Prolene. A 29 EEA anvil was inserted and the pursestring was tied down tightly around it. We then performed an end-to-end anastomosis with a 29 EEA stapler through the rectum. This was done after the rectum had been dilated using the multiple anal dilators. We had a good patent anastomosis, 2 circular complete rings of tissue were present in the stapler and we inspected the staple line under water by instilling air into the rectum. There was no sign of a leak present. There was a small deserosalization on the anterior aspect and this was oversewn with Lemberted 3-0 silks. I then oversewed the staple line using Lemberted 3-0 silks. The anastomosis was not under any tension. We then rested the bowel back into the abdominal cavity and irrigated out the abdomen thoroughly with normal saline. There was no sign of OPERATIVE REPORT [id number] NGA LEWIS any active bleeding visible at the conclusion of the case. The fascia was then cleared up from the midline incision and also from the ostomy site. The ostomy site fascia was closed transversely using multiple interrupted 0 Prolenes. The midline fascia was then closed with a running #1 looped PDS times 2. We then irrigated out the incisions and reapproximated the subcutaneous tissues with interrupted 3-0 Vicryl. The umbilicus was tacked down using an interrupted 2-0 Vicryl. The ostomy site was closed with 2 separate pursestrings using 2-0 Vicryl. The midline incision skin was then closed with maria isabel. COMPLICATIONS: None. CONDITION: Stable. ANESTHESIA: General endotracheal. BLOOD LOSS: 300 mL. TRANSINT:[id number] Voice Confirmation ID: [id number] DOCUMENT ID: [id number] ALVAREZ SMILEY MD at 1418 CC: KHRIS COLE DO [id number] DICTATION DATE: 03/17/18 1359 TACK MAKER: 03/17/18 1440 DIS IN 03/23/18 [place] [address] [id number] [place] [id number]
[~2018-03-17 07:40] MED LIST changes: +COREG25 MG PO; +HUMALOG 30100 UNITS/ SC
[2018-03-17 08:06] VITALS: BP 115/67; BMI 37.8
[2018-03-17 15:30] VITALS: BP 129/56
[2018-03-17 19:01] VITALS: BP 129/56; BMI 38.2
[2018-03-17 19:51] VITALS: BP 146/60
[2018-03-18 00:10] VITALS: BP 126/42
[2018-03-18 04:45] VITALS: BP 114/33
[2018-03-18 06:08] LABS: BASOPHILS 0 % (0-2); EOSINOPHILS 3.4 % (0-7); HEMATOCRIT 33.2 % (36.0-48.0); HEMOGLOBIN 10.2 g/dL (12-16); IMMATURE GRANULOCYTES 0.1 % (0-5); LYMPHOCYTES 9.8 % (15-50); MCH 27.5 pg (26.0-34.0); MCHC 30.7 g/dL (31.0-37.0); MCV 89.5 fL (80.0-100.0); MEAN PLATELET VOLUME 11.4 fL (7.4-10.4); MONOCYTES 9.4 % (2-11); NEUTROPHILS 77.3 % (40-80); RBC 3.71 10x6/uL (4.00-5.40); RDW 15.2 % (11.5-14.5)
[2018-03-18 06:35] LABS: ANION GAP 11.2 mmol/L (8-16); CALCIUM 7.3 mg/dL (8.5-10.1); CARBON DIOXIDE 25.6 mmol/L (21.0-32.0); MAGNESIUM - SERUM 2.1 mg/dL (1.8-2.4); PHOSPHOROUS 5.1 mg/dL (2.5-4.9); POTASSIUM - SERUM 3.8 mmol/L (3.5-5.1)
[2018-03-18 06:37] LABS: WBC 9.1 10x3/uL (4.8-10.8)
[2018-03-18 06:38] LABS: PLATELET COUNT 240 10x3/uL (130-400)
[2018-03-18 08:10] VITALS: BP 97/36
[2018-03-18 10:22] VITALS: Ht 149.9 cm; Wt 91.0 kg
[2018-03-18 12:47] VITALS: BP 88/31
[2018-03-18 20:02] VITALS: BP 103/41
[2018-03-18 23:57] VITALS: BP 106/42
[2018-03-19 03:10] VITALS: BP 111/44
[2018-03-19 07:47] VITALS: BP 124/46
[2018-03-19 08:47] LABS: BASOPHILS 0.1 % (0-2); EOSINOPHILS 5.7 % (0-7); HEMATOCRIT 28.4 % (36.0-48.0); HEMOGLOBIN 8.9 g/dL (12-16); IMMATURE GRANULOCYTES 0.1 % (0-5); LYMPHOCYTES 7.6 % (15-50); MCHC 31.3 g/dL (31.0-37.0); MCV 89.3 fL (80.0-100.0); MEAN PLATELET VOLUME 10.6 fL (7.4-10.4); MONOCYTES 11.3 % (2-11); NEUTROPHILS 75.2 % (40-80); RBC 3.18 10x6/uL (4.00-5.40); RDW 15.3 % (11.5-14.5); WBC 7.4 10x3/uL (4.8-10.8)
[2018-03-19 08:51] LABS: PLATELET COUNT 183 10x3/uL (130-400)
[2018-03-19 09:09] LABS: CALCIUM 7.4 mg/dL (8.5-10.1); CARBON DIOXIDE 24.7 mmol/L (21.0-32.0); CREATININE - SERUM 0.9 mg/dL (0.6-1.3); POTASSIUM - SERUM 3.7 mmol/L (3.5-5.1)
[2018-03-19 12:13] VITALS: BP 110/40
[2018-03-19 15:58] VITALS: BP 119/45
[2018-03-19 20:06] VITALS: BP 124/50
[2018-03-20] VITALS: BP 134/53
[2018-03-20 04:13] VITALS: BP 139/58
[2018-03-20 05:37] LABS: BASOPHILS 0 % (0-2); EOSINOPHILS 7.8 % (0-7); HEMATOCRIT 27.4 % (36.0-48.0); HEMOGLOBIN 8.6 g/dL (12-16); IMMATURE GRANULOCYTES 0.3 % (0-5); LYMPHOCYTES 10.4 % (15-50); MCH 27.8 pg (26.0-34.0); MCHC 31.4 g/dL (31.0-37.0); MCV 88.7 fL (80.0-100.0); MEAN PLATELET VOLUME 10.3 fL (7.4-10.4); MONOCYTES 8.3 % (2-11); NEUTROPHILS 73.2 % (40-80); PLATELET COUNT 185 10x3/uL (130-400); RBC 3.09 10x6/uL (4.00-5.40); RDW 15.2 % (11.5-14.5)
[2018-03-20 05:48] LABS: CALC OSMOLALITY 280 mosm/kg (275-300); CALCIUM 7.7 mg/dL (8.5-10.1); CARBON DIOXIDE 22.8 mmol/L (21.0-32.0); CHLORIDE - SERUM 107 mmol/L (98-107); CREATININE - SERUM 0.8 mg/dL (0.6-1.3); POTASSIUM - SERUM 4.2 mmol/L (3.5-5.1); SODIUM 137 mmol/L (136-145); UREA NITROGEN 19 mg/dL (7-18); eGFR NON AFRICAN AMERICAN 77 mL/min (90-120)
[2018-03-20 05:54] LABS: GLUCOSE 183 mg/dL (74-106)
[2018-03-20 09:20] VITALS: BP 132/62
[2018-03-20 14:38] VITALS: BP 106/61
[2018-03-20 17:07] VITALS: BP 144/61
[2018-03-20 20:42] VITALS: BP 154/51
[2018-03-21 00:28] VITALS: BP 148/58
[2018-03-21 04:10] VITALS: BP 134/64
[2018-03-21 06:29] LABS: BASOPHILS 0 % (0-2); EOSINOPHILS 10.7 % (0-7); HEMATOCRIT 26.7 % (36.0-48.0); HEMOGLOBIN 8.3 g/dL (12-16); IMMATURE GRANULOCYTES 0.2 % (0-5); LYMPHOCYTES 12.7 % (15-50); MCH 27.6 pg (26.0-34.0); MCHC 31.1 g/dL (31.0-37.0); MCV 88.7 fL (80.0-100.0); MEAN PLATELET VOLUME 10.4 fL (7.4-10.4); MONOCYTES 9.6 % (2-11); NEUTROPHILS 66.8 % (40-80); RBC 3.01 10x6/uL (4.00-5.40)
[2018-03-21 06:33] LABS: PLATELET COUNT 224 10x3/uL (130-400); WBC 5.2 10x3/uL (4.8-10.8)
[2018-03-21 06:46] LABS: CALCIUM 7.8 mg/dL (8.5-10.1); CARBON DIOXIDE 24.6 mmol/L (21.0-32.0); CHLORIDE - SERUM 109 mmol/L (98-107); CREATININE - SERUM 0.6 mg/dL (0.6-1.3); POTASSIUM - SERUM 4.4 mmol/L (3.5-5.1); SODIUM 140 mmol/L (136-145); eGFR NON AFRICAN AMERICAN > 90 mL/min (90-120)
[2018-03-21 06:48] LABS: CALC OSMOLALITY 279 mosm/kg (275-300); GLUCOSE 125 mg/dL (74-106); UREA NITROGEN 12 mg/dL (7-18)
[2018-03-21 08:31] VITALS: BP 141/61
[2018-03-21 12:45] VITALS: BP 117/63
[2018-03-21 17:56] VITALS: BP 157/61
[2018-03-21 22:18] VITALS: BP 157/53
[2018-03-22 04:10] VITALS: BP 141/54
[2018-03-22 09:20] VITALS: BP 156/54
[2018-03-22 12:03] VITALS: BP 123/57
[2018-03-22 15:39] VITALS: BP 155/73
[2018-03-22 21:48] VITALS: BP 154/64
[2018-03-23 00:56] VITALS: BP 148/64
[2018-03-23 03:39] VITALS: BP 148/61
[2018-03-23 06:42] LABS: BASOPHILS 0.2 % (0-2); EOSINOPHILS 10.6 % (0-7); HEMATOCRIT 26.3 % (36.0-48.0); HEMOGLOBIN 8.2 g/dL (12-16); IMMATURE GRANULOCYTES 0.5 % (0-5); LYMPHOCYTES 24.8 % (15-50); MCH 27.3 pg (26.0-34.0); MCHC 31.2 g/dL (31.0-37.0); MCV 87.7 fL (80.0-100.0); MEAN PLATELET VOLUME 10.3 fL (7.4-10.4); MONOCYTES 11.5 % (2-11); NEUTROPHILS 52.4 % (40-80); PLATELET COUNT 247 10x3/uL (130-400); RDW 15.2 % (11.5-14.5); WBC 4.2 10x3/uL (4.8-10.8)
[2018-03-23 06:49] LABS: CALC OSMOLALITY 281 mosm/kg (275-300); CALCIUM 7.8 mg/dL (8.5-10.1); CARBON DIOXIDE 27.8 mmol/L (21.0-32.0); CHLORIDE - SERUM 108 mmol/L (98-107); CREATININE - SERUM 0.6 mg/dL (0.6-1.3); GLUCOSE 119 mg/dL (74-106); POTASSIUM - SERUM 3.9 mmol/L (3.5-5.1); SODIUM 142 mmol/L (136-145); UREA NITROGEN 7 mg/dL (7-18); eGFR NON AFRICAN AMERICAN > 90 mL/min (90-120)
[2018-03-23 08:06] VITALS: BP 162/50
[2018-03-23 12:36] VITALS: BP 132/42
[2018-03-23] MEDS ORDERED: HYDROCODONE-APA1 TAB PO (14:25)
== END 2018-03-23 16:00 | disposition home health service (06) | DRG 330 ==
LOC: D.OPS 07:40 → D.MS 14:50 → D.OPS 14:51 → D.MS 03-18 16:32 → D.SDCHOLD 03-19 16:08 → D.MS 03-23 16:00
PROVIDERS: Surgery
PROC: 0DNW0ZZ Release Peritoneum, Open Approach (ICD-10-PCS; 2018-03-17)
PROC: 0DBM0ZZ Excision of Descending Colon, Open Approach (ICD-10-PCS; principal; 2018-03-17 10:00)
DX: Z43.3 Encounter for attention to colostomy (principal); R18.8 Other ascites; E66.01 Morbid (severe) obesity due to excess calories; I10 Essential (primary) hypertension; E11.9 Type 2 diabetes mellitus without complications; K66.0 Peritoneal adhesions (postprocedural) (postinfection); K57.90 Diverticulosis of intestine, part unspecified, without perforation or abscess without bleeding; Z68.38 Body mass index [BMI] 38.0-38.9, adult

== ENCOUNTER → 2018-04-07 11:18 | Outpatient (CLI) | payer OTHER ==
[2018-03-18 10:22] VITALS: BMI 38.2
[~2018-04-07 11:18] MED LIST changes: +AMPICILLIN TRI500 MG PO; +HYDROCODONE-APA1 TAB PO
== END | disposition home or self-care (01) ==
LOC: D.CT 11:18
DX: R18.8 Other ascites (principal)

== ENCOUNTER 2018-04-10 15:24 | Inpatient (IN) | payer OTHER ==
[~2018-04-10] VITALS: Ht 149.9 cm; Wt 91.2 kg
--- NOTE | ~2018-04-10 | EC ---
PATIENT:NGA LEWIS DATE OF SERVICE: 04/10/18 SEX: F MEDICAL RECORD: [id number] DATE OF : 55 LOCATION:D.MS [place] AGE OF PATIENT: 62 ADMISSION DATE: 04/10/18 REFERRING PHYSICIAN: INTERPRETING PHYSICIAN: WILLIAN KHAN MD ECHOCARDIOGRAM REPORT ECHO CHARGES 4 ECHO COMPLETE Date: 04/11 CLINICAL DIAGNOSIS: CHF ECHOCARDIOGRAPHIC MEASUREMENTS (adult normal given) AC root (d.<3.7cm) 2.8 cm LV Septum d (<1.2 cm> 1.0 cm Valve Excursion 1.1 cm LV Septum (systole) 1.5 cm Left Atria (s.<4.0cm> 3.9 cm LVPW d(<1.2cm) 1.0 cm RV (d.<2.3cm) 2.8 cm LVPW (sytole) 1.7 cm LV diastole(<5.6CM) 6.1 cm MV E-F(>70mm/sec) cm LV systole 4.1 cm LVOT Diameter 1.7 cm MV exc.(>10mm) cm Est.ejection fraction (50-75%) % DOPPLER: LVIT cm/sec A 82.0 cm/sec E 168 cm/sec LA cm/sec RVSP 69.0 mmHg LVOT 167 cm/sec AOP1/2T m/s Asc. Ao 224 cm/sec RVOT 76.0 cm/sec RA cm/sec PA 133 cm/sec AV Gradient Peak 20.1 mmHg AV Mean 11.0 mmHg AV Area 1.3 cm MV Gradient Peak 15.0 mmHg MV Mean 3.7 mmHg MV Area cm COMMENTS: Color Checker Roving Or Yarn: Pam DREW [place] Insurance Analyst: Aline Khan TAPE# PACS Pericardial Effusion N DATE OF SERVICE: INDICATION: Transthoracic echocardiogram. FINDINGS: 1. Left ventricle has mild left ventricular hypertrophy. Inflow characteristics are normal. The ejection fraction is 55%. There is mild dilatation in the left ventricular structure. 2. The left atrium is mildly dilated. 3. The aortic valve is shown to be sclerotic and thickened with no significant ECHOCARDIOGRAM REPORT [id number] NGA LEWIS aortic stenosis. There is, however, moderate aortic insufficiency. 4. The mitral valve is shown to have moderate to severe mitral regurgitation. 5. The tricuspid valve has severe tricuspid regurgitation, RVSP of 70 mmHg. 6. The right ventricle has mild enlargement. 7. The right atrium is mildly enlarged. CONCLUSIONS: The patient has mitral and tricuspid severe regurgitation with mild dilatation of the left ventricle with normal function. TRANSINT:[id number] Voice Confirmation ID: [id number] DOCUMENT ID: [id number] WILLIAN KHAN MD at 1211 CC: [id number] DICTATION DATE: 04/12/18 1029 PET CARE WORKER: 04/12/[address] [facility] [address] [place] [address]
[~2018-04-10 15:24] MED LIST changes: -AMPICILLIN TRI500 MG PO
[2018-04-10 15:46] VITALS: BMI 40.7
[2018-04-10 17:03] LABS: BASOPHILS 0.3 % (0-2); EOSINOPHILS 18.4 % (0-7); HEMOGLOBIN 10.5 g/dL (12-16); IMMATURE GRANULOCYTES 0.5 % (0-5); MCH 27.2 pg (26.0-34.0); MCHC 30.9 g/dL (31.0-37.0); MCV 88.1 fL (80.0-100.0); MEAN PLATELET VOLUME 10.9 fL (7.4-10.4); MONOCYTES 9.6 % (2-11); NEUTROPHILS 55.2 % (40-80); RBC 3.86 10x6/uL (4.00-5.40); RDW 15.4 % (11.5-14.5); WBC 7.8 10x3/uL (4.8-10.8)
[2018-04-10 17:10] LABS: PLATELET COUNT 363 10x3/uL (130-400)
[2018-04-10 18:12] LABS: ALBUMIN 3.2 g/dL (3.4-5.0); ALKALINE PHOSPHATASE 178 U/L (46-116); ALT (SGPT) 10 U/L (10-68); BILIRUBIN - TOTAL 0.33 mg/dL (0.2-1.3); CALC OSMOLALITY 284 mosm/kg (275-300); CALCIUM 8.4 mg/dL (8.5-10.1); CARBON DIOXIDE 32.7 mmol/L (21.0-32.0); CHLORIDE - SERUM 103 mmol/L (98-107); CREATININE - SERUM 0.8 mg/dL (0.6-1.3); GLUCOSE 166 mg/dL (74-106); POTASSIUM - SERUM 4.3 mmol/L (3.5-5.1); PRO BNP 2244 pg/mL (0-125); SODIUM 140 mmol/L (136-145); UREA NITROGEN 17 mg/dL (7-18); eGFR NON AFRICAN AMERICAN 77 mL/min (90-120)
[2018-04-10 19:14] LABS: APPEARANCE CLEAR (CLEAR); BILIRUBIN NEGATIVE (NEGATIVE); COLOR DK YELLOW (YELLOW); GLUCOSE NEGATIVE (NEGATIVE); KETONE NEGATIVE (NEGATIVE); NITRITE NEGATIVE (NEGATIVE); PROTEIN NEGATIVE (NEGATIVE); SPECIFIC GRAVITY 1.025 (1.005-1.020); UROBILINOGEN NORMAL (NORMAL); WHITE CELLS - URINE 0-5 /hpf (0-5)
[2018-04-10 19:15] LABS: BACTERIA FEW /hpf (NONE SEEN); YEAST <1+ /hpf (NONE SEEN)
[2018-04-10 19:16] LABS: MUCUS <1+ /lpf (NONE SEEN)
[2018-04-10 19:48] VITALS: BP 155/48
[2018-04-11] VITALS (13 sets, daily range): BP systolic 112–142; BP diastolic 38–71; Ht 149.9 cm; Wt 91.2 kg
[2018-04-11 06:30] LABS: BASOPHILS 0.1 % (0-2); EOSINOPHILS 22.8 % (0-7); HEMATOCRIT 28.2 % (36.0-48.0); HEMOGLOBIN 8.7 g/dL (12-16); IMMATURE GRANULOCYTES 0.3 % (0-5); LYMPHOCYTES 14.2 % (15-50); MCH 26.9 pg (26.0-34.0); MCHC 30.9 g/dL (31.0-37.0); MCV 87.3 fL (80.0-100.0); MEAN PLATELET VOLUME 10.2 fL (7.4-10.4); MONOCYTES 9.4 % (2-11); NEUTROPHILS 53.2 % (40-80); PLATELET COUNT 324 10x3/uL (130-400); RBC 3.23 10x6/uL (4.00-5.40); RDW 15.6 % (11.5-14.5); WBC 7.3 10x3/uL (4.8-10.8)
[2018-04-11 06:53] LABS: ALBUMIN 2.5 g/dL (3.4-5.0); ALKALINE PHOSPHATASE 142 U/L (46-116); ALT (SGPT) 8 U/L (10-68); BILIRUBIN - TOTAL 0.34 mg/dL (0.2-1.3); CALC OSMOLALITY 277 mosm/kg (275-300); CARBON DIOXIDE 28.5 mmol/L (21.0-32.0); CHLORIDE - SERUM 104 mmol/L (98-107); CREATININE - SERUM 0.6 mg/dL (0.6-1.3); GLUCOSE 154 mg/dL (74-106); PROTEIN - SERUM 5.9 g/dL (6.4-8.2); SODIUM 137 mmol/L (136-145); UREA NITROGEN 15 mg/dL (7-18); eGFR NON AFRICAN AMERICAN > 90 mL/min (90-120)
[2018-04-11 09:05] LABS: T4 THYROXINE 10.5 ug/dL (4.7-13.3); THYROID STIMULATING HORMONE 1.32 uIU/mL (0.36-3.74)
[2018-04-11 10:05] LABS: APTT 34.7 SECONDS (22.8-39.4); INR 1.16 (0.85-1.17); PROTIME 14.4 SECONDS (11.6-15.0)
[2018-04-12 04:38] VITALS: BP 146/44
[2018-04-12 06:48] LABS: BASOPHILS 0.2 % (0-2); EOSINOPHILS 20.2 % (0-7); HEMATOCRIT 28.1 % (36.0-48.0); HEMOGLOBIN 8.5 g/dL (12-16); IMMATURE GRANULOCYTES 0.2 % (0-5); MCH 26.2 pg (26.0-34.0); MCHC 30.2 g/dL (31.0-37.0); MCV 86.7 fL (80.0-100.0); MEAN PLATELET VOLUME 10.5 fL (7.4-10.4); MONOCYTES 8.7 % (2-11); NEUTROPHILS 52.7 % (40-80); PLATELET COUNT 315 10x3/uL (130-400); RBC 3.24 10x6/uL (4.00-5.40); RDW 15.2 % (11.5-14.5); WBC 5.9 10x3/uL (4.8-10.8)
[2018-04-12 07:29] LABS: ALBUMIN 2.5 g/dL (3.4-5.0); BILIRUBIN - DIRECT 0.2 mg/dL (0.00-0.30); BILIRUBIN - INDIRECT 0.17 mg/dL (0.00-1.00); BILIRUBIN - TOTAL 0.37 mg/dL (0.2-1.3); PROTEIN - SERUM 5.6 g/dL (6.4-8.2)
[2018-04-12 08:32] LABS: CALC OSMOLALITY 282 mosm/kg (275-300); CALCIUM 7.8 mg/dL (8.5-10.1); CARBON DIOXIDE 30.3 mmol/L (21.0-32.0); CHLORIDE - SERUM 105 mmol/L (98-107); CREATININE - SERUM 0.6 mg/dL (0.6-1.3); GLUCOSE 133 mg/dL (74-106); POTASSIUM - SERUM 4.1 mmol/L (3.5-5.1); SODIUM 141 mmol/L (136-145); UREA NITROGEN 12 mg/dL (7-18); eGFR NON AFRICAN AMERICAN > 90 mL/min (90-120)
[2018-04-12 09:09] LABS: INR 1.18 (0.85-1.17); PROTIME 14.3 SECONDS (11.6-15.0)
[2018-04-12 09:37] VITALS: BP 128/44
[2018-04-12 14:22] VITALS: BP 119/50
[2018-04-12 17:37] VITALS: BP 111/35
[2018-04-12 19:33] VITALS: BP 119/60
[2018-04-12 23:43] VITALS: BP 113/41
[2018-04-13 04:08] VITALS: BP 119/48
[2018-04-13 05:06] LABS: BASOPHILS 0.2 % (0-2); EOSINOPHILS 20.3 % (0-7); HEMATOCRIT 27.1 % (36.0-48.0); HEMOGLOBIN 8.2 g/dL (12-16); IMMATURE GRANULOCYTES 0.4 % (0-5); LYMPHOCYTES 18.7 % (15-50); MCH 26.5 pg (26.0-34.0); MCHC 30.3 g/dL (31.0-37.0); MCV 87.4 fL (80.0-100.0); MEAN PLATELET VOLUME 10.6 fL (7.4-10.4); MONOCYTES 11.9 % (2-11); NEUTROPHILS 48.5 % (40-80); PLATELET COUNT 306 10x3/uL (130-400); RDW 15.4 % (11.5-14.5); WBC 5.6 10x3/uL (4.8-10.8)
[2018-04-13 05:37] LABS: ALBUMIN 2.4 g/dL (3.4-5.0); ALKALINE PHOSPHATASE 121 U/L (46-116); ALT (SGPT) 8 U/L (10-68); BILIRUBIN - TOTAL 0.28 mg/dL (0.2-1.3); CALCIUM 7.7 mg/dL (8.5-10.1); CARBON DIOXIDE 31.6 mmol/L (21.0-32.0); CHLORIDE - SERUM 104 mmol/L (98-107); CREATININE - SERUM 0.7 mg/dL (0.6-1.3); GLUCOSE 163 mg/dL (74-106); POTASSIUM - SERUM 4.3 mmol/L (3.5-5.1); PROTEIN - SERUM 5.5 g/dL (6.4-8.2); SODIUM 139 mmol/L (136-145); eGFR NON AFRICAN AMERICAN 90 mL/min (90-120)
[2018-04-13 05:38] LABS: CALC OSMOLALITY 282 mosm/kg (275-300); UREA NITROGEN 16 mg/dL (7-18)
[2018-04-13 08:48] VITALS: BP 116/42
[2018-04-13 12:58] VITALS: BP 120/47
[2018-04-13 16:27] VITALS: BP 134/43
[2018-04-13 21:32] VITALS: BP 114/36
[2018-04-14 04:13] VITALS: BP 124/48
[2018-04-14 05:07] LABS: BASOPHILS 0.2 % (0-2); HEMATOCRIT 27.7 % (36.0-48.0); HEMOGLOBIN 8.4 g/dL (12-16); IMMATURE GRANULOCYTES 0.2 % (0-5); LYMPHOCYTES 21.3 % (15-50); MCH 26.6 pg (26.0-34.0); MCHC 30.3 g/dL (31.0-37.0); MCV 87.7 fL (80.0-100.0); MEAN PLATELET VOLUME 10.6 fL (7.4-10.4); MONOCYTES 9.8 % (2-11); NEUTROPHILS 47.5 % (40-80); PLATELET COUNT 280 10x3/uL (130-400); RBC 3.16 10x6/uL (4.00-5.40); RDW 15.3 % (11.5-14.5); WBC 5.8 10x3/uL (4.8-10.8)
[2018-04-14 06:02] LABS: ALBUMIN 2.4 g/dL (3.4-5.0); ALKALINE PHOSPHATASE 120 U/L (46-116); ALT (SGPT) 10 U/L (10-68); BILIRUBIN - TOTAL 0.25 mg/dL (0.2-1.3); CALC OSMOLALITY 282 mosm/kg (275-300); CALCIUM 7.7 mg/dL (8.5-10.1); CARBON DIOXIDE 30.1 mmol/L (21.0-32.0); CHLORIDE - SERUM 105 mmol/L (98-107); CREATININE - SERUM 0.7 mg/dL (0.6-1.3); GLUCOSE 127 mg/dL (74-106); PROTEIN - SERUM 5.8 g/dL (6.4-8.2); SODIUM 139 mmol/L (136-145); UREA NITROGEN 21 mg/dL (7-18); eGFR NON AFRICAN AMERICAN 90 mL/min (90-120)
[2018-04-14 09:28] VITALS: BP 120/47
== END 2018-04-14 10:39 | disposition home or self-care (01) | DRG 433 ==
LOC: D.MS 15:24
PROVIDERS: Family Medicine; Specialist
PROC: 0W9G3ZZ Drainage of Peritoneal Cavity, Percutaneous Approach (ICD-10-PCS; principal; 2018-04-11 10:30)
DX: K74.60 Unspecified cirrhosis of liver (principal); R18.8 Other ascites; Z68.41 Body mass index [BMI] 40.0-44.9, adult; I50.32 Chronic diastolic (congestive) heart failure; D64.9 Anemia, unspecified; E11.40 Type 2 diabetes mellitus with diabetic neuropathy, unspecified; I11.0 Hypertensive heart disease with heart failure; J44.9 Chronic obstructive pulmonary disease, unspecified; F32.9 Major depressive disorder, single episode, unspecified; F41.9 Anxiety disorder, unspecified; E66.01 Morbid (severe) obesity due to excess calories; Z87.891 Personal history of nicotine dependence

== ENCOUNTER → 2018-04-22 18:02 | Outpatient (CLI) | payer OTHER ==
[2018-04-11 16:11] VITALS: BMI 40.6
[~2018-04-22 18:02] MED LIST changes: +AMPICILLIN TRI500 MG PO
== END | disposition home or self-care (01) ==
LOC: D.LABREF 18:02
DX: L76.82 Other postprocedural complications of skin and subcutaneous tissue (principal); Z98.890 Other specified postprocedural states

== ENCOUNTER 2018-04-27 19:53 | Inpatient (IN) | payer OTHER ==
[~2018-04-27] VITALS: Ht 149.9 cm; Wt 91.5 kg
[~2018-04-27 19:53] MED LIST changes: -AMPICILLIN TRI500 MG PO
[2018-04-27 22:48] LABS: BASOPHILS 0.3 % (0-2); EOSINOPHILS 6.8 % (0-7); HEMATOCRIT 33.1 % (36.0-48.0); IMMATURE GRANULOCYTES 0.3 % (0-5); LYMPHOCYTES 17.3 % (15-50); MCH 26.1 pg (26.0-34.0); MCHC 30.2 g/dL (31.0-37.0); MCV 86.4 fL (80.0-100.0); MEAN PLATELET VOLUME 11.2 fL (7.4-10.4); MONOCYTES 9.3 % (2-11); PLATELET COUNT 270 10x3/uL (130-400); RBC 3.83 10x6/uL (4.00-5.40); RDW 15.1 % (11.5-14.5)
[2018-04-27 22:59] LABS: ANION GAP 7.6 mmol/L (8-16); BILIRUBIN - TOTAL 0.29 mg/dL (0.2-1.3); CALCIUM 8.3 mg/dL (8.5-10.1); CARBON DIOXIDE 32.5 mmol/L (21.0-32.0); CREATININE - SERUM 0.9 mg/dL (0.6-1.3); POTASSIUM - SERUM 4.1 mmol/L (3.5-5.1)
[2018-04-28] VITALS (12 sets, daily range): BP systolic 107–157; BP diastolic 45–75
[2018-04-29 04:16] VITALS: BP 147/54
[2018-04-29 04:53] VITALS: Ht 149.9 cm; Wt 91.5 kg
[2018-04-29 09:42] VITALS: BP 135/58
[2018-04-29 15:09] VITALS: BP 146/64
[2018-04-29 17:29] VITALS: BP 150/70
[2018-04-29 20:35] VITALS: BP 157/61
[2018-04-30 00:31] VITALS: BP 164/64
[2018-04-30 04:42] VITALS: BP 151/66
[2018-04-30 08:42] VITALS: BP 152/56
[2018-04-30 12:43] VITALS: BP 140/46
[2018-04-30 20:36] VITALS: BP 160/77
[2018-05-01 01:08] VITALS: BP 156/75
[2018-05-01 04:56] VITALS: BP 101/65
[2018-05-01 05:12] LABS: BASOPHILS 0.2 % (0-2); EOSINOPHILS 8.4 % (0-7); HEMATOCRIT 27.8 % (36.0-48.0); HEMOGLOBIN 8.7 g/dL (12-16); IMMATURE GRANULOCYTES 0.2 % (0-5); LYMPHOCYTES 18.4 % (15-50); MCH 26.4 pg (26.0-34.0); MCHC 31.3 g/dL (31.0-37.0); MCV 84.2 fL (80.0-100.0); MEAN PLATELET VOLUME 10.8 fL (7.4-10.4); MONOCYTES 11.1 % (2-11); NEUTROPHILS 61.7 % (40-80); PLATELET COUNT 236 10x3/uL (130-400); RDW 14.8 % (11.5-14.5); WBC 4.8 10x3/uL (4.8-10.8)
[2018-05-01 08:46] VITALS: BP 151/72
== END 2018-05-01 09:30 | disposition home health service (06) | DRG 863 ==
LOC: D.ER 19:53 → D.EDHOLD 04-28 03:40 → OBSVTIME 04-28 03:40 → D.MS 04-28 03:40 → D.EDHOLD 04-28 03:40 → D.MS 04-28 16:41
PROVIDERS: Family Medicine; Surgery
DX: T81.4XXA Infection following a procedure, initial encounter (principal); K91.872 Postprocedural seroma of a digestive system organ or structure following a digestive system procedure; L02.211 Cutaneous abscess of abdominal wall; Z68.41 Body mass index [BMI] 40.0-44.9, adult; Y83.8 Other surgical procedures as the cause of abnormal reaction of the patient, or of later complication, without mention of misadventure at the time of the procedure; K74.60 Unspecified cirrhosis of liver; E66.01 Morbid (severe) obesity due to excess calories; B95.2 Enterococcus as the cause of diseases classified elsewhere

== ENCOUNTER 2018-05-07 17:12 | Inpatient (IN) | payer OTHER ==
[~2018-05-07] VITALS: Ht 149.9 cm; Wt 94.3 kg
--- NOTE | ~2018-05-07 | DS ---
PATIENT:NGA LEWIS :55 MEDICAL RECORD: [id number] DISCHARGE SUMMARY ADMISSION DATE: 05/08/18 DISCHARGE DATE: 05/09/18 DATE OF ADMISSION: 05/08/2018 DATE OF DISCHARGE: 05/09/2018 CONDITION ON DISCHARGE: Improved. ADMITTING DIAGNOSES: Ascites, fatty liver, shortness of breath, cirrhosis of the liver, hypertension, history of congestive heart failure, diabetes, and abdominal pain. DISCHARGE DIAGNOSES: Abdominal pain, cirrhosis of the liver, ascites, type 2 diabetes, hypertension, CHF, COPD. HOSPITAL COURSE: This patient is a 62-year-old female with long-standing history of cirrhosis. She was admitted with chronic abdominal pain related to her ascites. She has had significant increase over the past month according to Dr. Vargas, who had admitted the patient. Initially, the patient's sodium was 137, potassium 4.6, chloride 100, CO2 is 32.7, her BUN is 22, creatinine 1, and glucose 184. Cardiac enzymes were unremarkable. She had proBNP of 1338. White count 6.3, hemoglobin 9.6, hematocrit 31, and platelets were 230. Her ammonia was 38. Urinalysis unremarkable. PT was 14.6 and INR 1.18. Interventional radiologist was consulted for paracentesis. The patient did undergo paracentesis and a liter and a half of fluid was taken off. The following day, the patient was afebrile. She wished to be discharged home. DISCHARGE MEDICATIONS: Include Lipitor 20 mg p.o. at bedtime, Lasix 40 mg once a day, KCl 20 mEq once a day, lisinopril 20 mg once a day, meloxicam 15 mg once a day, Neurontin 600 mg p.o. b.i.d., ProAir 90 mcg two puffs p.o. daily, Xifaxan 550 mg p.o. b.i.d., and Lantus 50 units subcutaneously b.i.d. She was also on Humalog sliding scale q.a.c. and at bedtime, carvedilol 25 mg b.i.d., and ampicillin 500 mg p.o. q. 8 hours. DIET: The patient was discharged home on a 2200-calorie ADA diet. ACTIVITIES: Ad musa. FOLLOWUP: She will follow up with Dr. Vargas in one week. TRANSINT:[id number] Voice Confirmation ID: [id number] DOCUMENT ID: [id number] JOJO HINOJOSA MD CC: [id number] DICTATION DATE: 06/07/18 1241 PATENT LAWYER: 06/07/18 1856 DIS IN 05/09/18 [facility] [address] [place] [id number]
[2018-05-07 19:15] LABS: BASOPHILS 0.2 % (0-2); EOSINOPHILS 7.7 % (0-7); HEMOGLOBIN 9.6 g/dL (12-16); IMMATURE GRANULOCYTES 0.3 % (0-5); LYMPHOCYTES 14.5 % (15-50); MCH 26.3 pg (26.0-34.0); MCV 84.9 fL (80.0-100.0); MEAN PLATELET VOLUME 11.6 fL (7.4-10.4); MONOCYTES 11.7 % (2-11); NEUTROPHILS 65.6 % (40-80); PLATELET COUNT 230 10x3/uL (130-400); RBC 3.65 10x6/uL (4.00-5.40); RDW 15.4 % (11.5-14.5); WBC 6.3 10x3/uL (4.8-10.8)
[2018-05-07 19:45] LABS: ALBUMIN 2.8 g/dL (3.4-5.0); ALKALINE PHOSPHATASE 171 U/L (46-116); ALT (SGPT) 14 U/L (10-68); CALC OSMOLALITY 281 mosm/kg (275-300); CALCIUM 7.8 mg/dL (8.5-10.1); CARBON DIOXIDE 32.7 mmol/L (21.0-32.0); CHLORIDE - SERUM 100 mmol/L (98-107); GLUCOSE 184 mg/dL (74-106); PROTEIN - SERUM 6.9 g/dL (6.4-8.2); SODIUM 137 mmol/L (136-145); UREA NITROGEN 22 mg/dL (7-18); eGFR NON AFRICAN AMERICAN 59 mL/min (90-120)
[2018-05-07 19:51] LABS: POTASSIUM - SERUM 4.6 mmol/L (3.5-5.1)
[2018-05-07 19:57] LABS: BILIRUBIN - DIRECT 0.02 mg/dL (0.00-0.30); CKMB 0.5 U/L (0.0-3.6); CREATINE KINASE 54 UL (21-215); PRO BNP 1338 pg/mL (0-125)
[2018-05-07 19:58] LABS: TROPONIN-I < 0.017 ng/mL (0.000-0.060)
[2018-05-07 21:24] LABS: APPEARANCE CLEAR (CLEAR); COLOR YELLOW (YELLOW); SPECIFIC GRAVITY 1.005 (1.005-1.020)
[2018-05-07 21:25] LABS: BILIRUBIN NEGATIVE (NEGATIVE); GLUCOSE NEGATIVE (NEGATIVE); KETONE NEGATIVE (NEGATIVE); NITRITE NEGATIVE (NEGATIVE); PROTEIN NEGATIVE (NEGATIVE); UROBILINOGEN NORMAL (NORMAL)
[2018-05-07 22:15] LABS: INR 1.18 (0.85-1.17); PROTIME 14.6 SECONDS (11.6-15.0)
[2018-05-08] VITALS (11 sets, daily range): BP systolic 124–189; BP diastolic 51–89; Ht 149.9 cm; Wt 94.3 kg
[2018-05-08] MEDS ORDERED: AMPICILLIN TRI500 MG PO (00:56)
[2018-05-08 06:23] LABS: BASOPHILS 0.2 % (0-2); EOSINOPHILS 9.7 % (0-7); HEMATOCRIT 31.1 % (36.0-48.0); HEMOGLOBIN 9.5 g/dL (12-16); IMMATURE GRANULOCYTES 0.3 % (0-5); LYMPHOCYTES 19.2 % (15-50); MCH 25.9 pg (26.0-34.0); MCHC 30.5 g/dL (31.0-37.0); MCV 84.7 fL (80.0-100.0); MEAN PLATELET VOLUME 11.5 fL (7.4-10.4); MONOCYTES 10.9 % (2-11); NEUTROPHILS 59.7 % (40-80); PLATELET COUNT 231 10x3/uL (130-400); RBC 3.67 10x6/uL (4.00-5.40); RDW 15.5 % (11.5-14.5)
[2018-05-08 06:30] LABS: ANION GAP 7.8 mmol/L (8-16); CALCIUM 7.9 mg/dL (8.5-10.1); CARBON DIOXIDE 30.3 mmol/L (21.0-32.0); CREATININE - SERUM 0.9 mg/dL (0.6-1.3); POTASSIUM - SERUM 4.1 mmol/L (3.5-5.1)
[2018-05-08 06:43] LABS: INR 1.16 (0.85-1.17); PROTIME 14.3 SECONDS (11.6-15.0)
[2018-05-08 13:33] LABS: PROTEIN - BODY FLUID 4.3 G/DL
[2018-05-08 14:51] LABS: NEUT - BF 8 %
[2018-05-08 14:52] LABS: EOS BF 1 %; MACROPHAGES BF 53 %; MESOTHELIALS BF 1 %
[2018-05-09 04:00] VITALS: BP 115/38
[2018-05-09 07:59] VITALS: BP 109/43
== END 2018-05-09 10:35 | disposition home or self-care (01) | DRG 433 ==
LOC: D.ER 17:12 → OBSVTIME 22:34 → D.MS 22:34
PROVIDERS: Family Medicine; Radiology Diagnostic Radiology
PROC: 0W9G3ZX Drainage of Peritoneal Cavity, Percutaneous Approach, Diagnostic (ICD-10-PCS; principal; 2018-05-08 10:31)
DX: K74.60 Unspecified cirrhosis of liver (principal); R18.8 Other ascites; E11.9 Type 2 diabetes mellitus without complications; I10 Essential (primary) hypertension; I11.0 Hypertensive heart disease with heart failure; I50.9 Heart failure, unspecified; J44.9 Chronic obstructive pulmonary disease, unspecified

== ENCOUNTER → 2018-05-25 15:30 | Outpatient (CLI) | payer OTHER ==
[2018-05-08 14:08] VITALS: BMI 42.0
[~2018-05-25 15:30] MED LIST changes: +AMPICILLIN TRI500 MG PO
== END | disposition home or self-care (01) ==
LOC: D.RAD 15:30
DX: M25.50 Pain in unspecified joint (principal); M25.561 Pain in right knee; M54.5 Low back pain

== ENCOUNTER 2018-06-08 16:46 | Inpatient (IN) | payer OTHER ==
[~2018-06-08] VITALS: Ht 149.9 cm; Wt 98.4 kg
[2018-06-08 17:37] LABS: BASOPHILS 0.4 % (0-2); EOSINOPHILS 5.6 % (0-7); HEMATOCRIT 32.8 % (36.0-48.0); IMMATURE GRANULOCYTES 0.2 % (0-5); LYMPHOCYTES 17.9 % (15-50); MCH 25.4 pg (26.0-34.0); MCHC 30.5 g/dL (31.0-37.0); MCV 83.2 fL (80.0-100.0); MEAN PLATELET VOLUME 11.4 fL (7.4-10.4); MONOCYTES 10.8 % (2-11); NEUTROPHILS 65.1 % (40-80); RBC 3.94 10x6/uL (4.00-5.40); RDW 15.8 % (11.5-14.5); WBC 5.5 10x3/uL (4.8-10.8)
[2018-06-08 17:42] LABS: PLATELET COUNT 173 10x3/uL (130-400)
[2018-06-08 17:54] LABS: ALBUMIN 3.1 g/dL (3.4-5.0); ANION GAP 7.7 mmol/L (8-16); BILIRUBIN - TOTAL 0.4 mg/dL (0.2-1.3); CALCIUM 8.9 mg/dL (8.5-10.1); CARBON DIOXIDE 31.7 mmol/L (21.0-32.0); CREATININE - SERUM 1.2 mg/dL (0.6-1.3); POTASSIUM - SERUM 4.4 mmol/L (3.5-5.1); PROTEIN - SERUM 7.2 g/dL (6.4-8.2)
[2018-06-08 18:08] VITALS: BP 133/58; BMI 43.9
[2018-06-08 20:26] VITALS: BP 133/58
[2018-06-08 22:10] LABS: APPEARANCE CLEAR (CLEAR); BILIRUBIN NEGATIVE (NEGATIVE); COLOR YELLOW (YELLOW); GLUCOSE NEGATIVE (NEGATIVE); KETONE NEGATIVE (NEGATIVE); NITRITE NEGATIVE (NEGATIVE); PROTEIN NEGATIVE (NEGATIVE); SPECIFIC GRAVITY 1.015 (1.005-1.020); UROBILINOGEN NORMAL (NORMAL)
[2018-06-09] VITALS (11 sets, daily range): BP systolic 100–142; BP diastolic 38–76; Ht 149.9 cm; Wt 98.4 kg
[2018-06-09 05:03] LABS: APTT 30.4 SECONDS (22.8-39.4); INR 1.2 (0.85-1.17); PROTIME 14.8 SECONDS (11.6-15.0)
[2018-06-09 05:07] LABS: ANION GAP 12.9 mmol/L (8-16); CALCIUM 8.6 mg/dL (8.5-10.1); CARBON DIOXIDE 28.1 mmol/L (21.0-32.0); CREATININE - SERUM 1.1 mg/dL (0.6-1.3)
[2018-06-09 18:27] LABS: EOS BF 8 %; MACROPHAGES BF 34 %; MESOTHELIALS BF 2 %; NEUT - BF 15 %
[2018-06-10 04:02] VITALS: BP 130/54
[2018-06-10 04:26] LABS: BASOPHILS 0.2 % (0-2); HEMATOCRIT 29.7 % (36.0-48.0); HEMOGLOBIN 9.3 g/dL (12-16); IMMATURE GRANULOCYTES 0.2 % (0-5); LYMPHOCYTES 21.7 % (15-50); MCH 25.4 pg (26.0-34.0); MCHC 31.3 g/dL (31.0-37.0); MEAN PLATELET VOLUME 11.3 fL (7.4-10.4); MONOCYTES 10.4 % (2-11); NEUTROPHILS 61.5 % (40-80); PLATELET COUNT 178 10x3/uL (130-400); RBC 3.66 10x6/uL (4.00-5.40); RDW 15.9 % (11.5-14.5)
[2018-06-10 04:39] LABS: ANION GAP 12.4 mmol/L (8-16); CALCIUM 8.1 mg/dL (8.5-10.1); CARBON DIOXIDE 27.2 mmol/L (21.0-32.0); CREATININE - SERUM 0.9 mg/dL (0.6-1.3); POTASSIUM - SERUM 3.6 mmol/L (3.5-5.1)
[2018-06-10 04:42] LABS: MCV 81.1 fL (80.0-100.0)
[2018-06-10 05:46] VITALS: BP 130/54
[2018-06-10 08:26] VITALS: BP 133/50
[2018-06-10 13:47] VITALS: BP 131/61
[2018-06-10 16:02] VITALS: BP 146/59
== END 2018-06-10 17:48 | disposition home or self-care (01) | DRG 948 ==
LOC: D.MS 16:46 → D.SDCHOLD 16:46 → OBSVTIME 16:47 → D.MS 16:50
PROVIDERS: Family Medicine; Internal Medicine Gastroenterology; Specialist
PROC: 0W9G3ZZ Drainage of Peritoneal Cavity, Percutaneous Approach (ICD-10-PCS; principal; 2018-06-09)
DX: R18.8 Other ascites (principal); Z68.41 Body mass index [BMI] 40.0-44.9, adult; K76.0 Fatty (change of) liver, not elsewhere classified; I11.0 Hypertensive heart disease with heart failure; I50.9 Heart failure, unspecified; E11.40 Type 2 diabetes mellitus with diabetic neuropathy, unspecified; J44.9 Chronic obstructive pulmonary disease, unspecified; E66.01 Morbid (severe) obesity due to excess calories

== ENCOUNTER 2018-06-10 23:15 | Emergency (ER) | payer OTHER ==
[~2018-06-10] VITALS: Ht 149.9 cm; Wt 100.5 kg
[2018-06-10 23:18] VITALS: Ht 149.9 cm; Wt 100.5 kg
[2018-06-11] LABS: HEMATOCRIT 33.4 % (36.0-48.0); HEMOGLOBIN 10.6 g/dL (12-16); LYMPHOCYTES 19.4 % (15-50); MCH 25.6 pg (26.0-34.0); MCHC 31.7 g/dL (31.0-37.0); MCV 80.7 fL (80.0-100.0); MEAN PLATELET VOLUME 11.2 fL (7.4-10.4); NEUTROPHILS 70.5 % (40-80); PLATELET COUNT 195 10x3/uL (130-400); RBC 4.14 10x6/uL (4.00-5.40); RDW 15.4 % (11.5-14.5)
[2018-06-11 00:16] LABS: APTT 29.9 SECONDS (22.8-39.4)
[2018-06-11 00:17] LABS: INR 1.15 (0.85-1.17); PROTIME 14.3 SECONDS (11.6-15.0)
[2018-06-11 00:25] LABS: D-DIMER-QUANTITATIVE 5.07 ug/mLFEU (0.20-0.54)
[2018-06-11 00:48] LABS: ALBUMIN 3.2 g/dL (3.4-5.0); ALKALINE PHOSPHATASE 148 U/L (46-116); ALT (SGPT) 17 U/L (10-68); AMYLASE - SERUM 42 U/L (25-115); BILIRUBIN - TOTAL 0.58 mg/dL (0.2-1.3); CALCIUM 8.4 mg/dL (8.5-10.1); CHLORIDE - SERUM 99 mmol/L (98-107); CKMB 0.5 U/L (0.0-3.6); CREATINE KINASE 55 UL (21-215); LIPASE 171 U/L (73-393); POTASSIUM - SERUM 3.5 mmol/L (3.5-5.1); PRO BNP 1800 pg/mL (0-125); PROTEIN - SERUM 7.3 g/dL (6.4-8.2); SODIUM 137 mmol/L (136-145); UREA NITROGEN 17 mg/dL (7-18); eGFR NON AFRICAN AMERICAN 59 mL/min (90-120)
[2018-06-11 00:49] LABS: APPEARANCE HAZY (CLEAR); BILIRUBIN NEGATIVE (NEGATIVE); COLOR YELLOW (YELLOW); GLUCOSE 250 mg/dL (NEGATIVE); KETONE NEGATIVE (NEGATIVE); NITRITE NEGATIVE (NEGATIVE); PROTEIN NEGATIVE (NEGATIVE); SPECIFIC GRAVITY 1.015 (1.005-1.020); UROBILINOGEN NORMAL (NORMAL)
[2018-06-11 00:51] LABS: BACTERIA MODERATE /hpf (NONE SEEN); EPITHELIAL CELLS 0-5 /hpf (0-5); RED CELLS - URINE 0-5 /hpf (0-5); WHITE CELLS - URINE 0-5 /hpf (0-5)
[2018-06-11 00:52] LABS: CALC OSMOLALITY 285 mosm/kg (275-300); GLUCOSE 285 mg/dL (74-106); TROPONIN-I < 0.017 ng/mL (0.000-0.060)
[2018-06-11 00:56] LABS: CARBON DIOXIDE 31.4 mmol/L (21.0-32.0)
[2018-06-11 01:35] VITALS: BP 131/59
== END 2018-06-11 01:35 | disposition home or self-care (01) ==
LOC: D.ER 23:15
PROVIDERS: Family Medicine
DX: L76.82 Other postprocedural complications of skin and subcutaneous tissue (principal); R06.02 Shortness of breath; E11.9 Type 2 diabetes mellitus without complications; I11.0 Hypertensive heart disease with heart failure; I50.9 Heart failure, unspecified; J44.9 Chronic obstructive pulmonary disease, unspecified

== ENCOUNTER 2018-06-11 03:06 | Emergency (ER) | payer OTHER ==
[~2018-06-11] VITALS: Ht 149.9 cm; Wt 84.1 kg
[2018-06-11 03:13] VITALS: Ht 149.9 cm; Wt 84.1 kg
[2018-06-11 03:59] VITALS: BP 166/78
== END 2018-06-11 04:01 | disposition home or self-care (01) ==
LOC: D.ER 03:06
DX: L76.82 Other postprocedural complications of skin and subcutaneous tissue (principal); I11.0 Hypertensive heart disease with heart failure; I50.9 Heart failure, unspecified; I25.10 Atherosclerotic heart disease of native coronary artery without angina pectoris

== ENCOUNTER 2018-06-12 13:39 | Emergency (ER) | payer OTHER ==
[~2018-06-12] VITALS: Ht 149.9 cm; Wt 86.8 kg
[2018-06-12 13:46] VITALS: Ht 149.9 cm; Wt 86.8 kg
[2018-06-12 18:00] LABS: BASOPHILS 0.4 % (0-2); EOSINOPHILS 8.1 % (0-7); HEMOGLOBIN 10.9 g/dL (12-16); IMMATURE GRANULOCYTES 0.2 % (0-5); LYMPHOCYTES 22.1 % (15-50); MCH 25.5 pg (26.0-34.0); MCHC 31.1 g/dL (31.0-37.0); MCV 81.8 fL (80.0-100.0); MEAN PLATELET VOLUME 11.3 fL (7.4-10.4); MONOCYTES 11.2 % (2-11); PLATELET COUNT 202 10x3/uL (130-400); RBC 4.28 10x6/uL (4.00-5.40); RDW 15.5 % (11.5-14.5); WBC 5.2 10x3/uL (4.8-10.8)
[2018-06-12 18:15] LABS: ALBUMIN 3.5 g/dL (3.4-5.0); ANION GAP 5.9 mmol/L (8-16); BILIRUBIN - TOTAL 0.39 mg/dL (0.2-1.3); CARBON DIOXIDE 35.6 mmol/L (21.0-32.0); CREATININE - SERUM 1.1 mg/dL (0.6-1.3); PROTEIN - SERUM 7.7 g/dL (6.4-8.2)
[2018-06-12 18:20] LABS: INR 1.12 (0.85-1.17)
[2018-06-12 18:21] LABS: C-REACTIVE PROTEIN 0.8 mg/dL (0.0-0.9)
[2018-06-12 18:23] LABS: POTASSIUM - SERUM 4.5 mmol/L (3.5-5.1)
[2018-06-12 20:14] VITALS: BP 130/62
== END 2018-06-12 20:10 | disposition home or self-care (01) ==
LOC: D.ER 13:39
PROVIDERS: Family Medicine
DX: L76.82 Other postprocedural complications of skin and subcutaneous tissue (principal); I11.0 Hypertensive heart disease with heart failure; I50.9 Heart failure, unspecified; I25.10 Atherosclerotic heart disease of native coronary artery without angina pectoris

== ENCOUNTER 2018-06-14 19:54 | Emergency (ER) | payer OTHER ==
[~2018-06-14] VITALS: Ht 149.9 cm; Wt 86.4 kg
[2018-06-14 20:10] VITALS: Ht 149.9 cm; Wt 86.4 kg
[2018-06-14 21:54] VITALS: BP 115/43
== END 2018-06-14 21:54 | disposition home or self-care (01) ==
LOC: D.ER 19:54
DX: Z98.890 Other specified postprocedural states (principal); I11.0 Hypertensive heart disease with heart failure; I50.9 Heart failure, unspecified; I25.10 Atherosclerotic heart disease of native coronary artery without angina pectoris

== ENCOUNTER 2018-07-23 14:21 | Outpatient (CLI) | payer OTHER ==
[~2018-07-23] VITALS: Ht 149.9 cm; Wt 93.0 kg
--- NOTE | ~2018-07-23 | MORECARE ---
CASE MANAGEMENT DISCHARGE SUMMARY PATIENT: NGA LEWIS UNIT: [id number] ADM DATE: 07/23/18 AGE: 63 : 55 SEX: F ROOM/BED: D.2237 AUTHOR: BERTHA,DOC PHYSICIAN: REFERRING PHYSICIAN: NORMA ROBERTS MD DATE OF SERVICE: 07/27/18 Discharge Plan Patient Name: NGA LEWIS Facility: [facility]:[place] : 1955 Planned Disposition: Home Anticipated Discharge Date: 07/24/18 Discharge Date: 07/24/2018 Expected LOS: 1 Initial Reviewer: [email or web address] Initial Review Date: 07/24/2018 Generated: 07/27/18 3:17 pm Comments DCP- Discharge Planning Updated by [email or web address]: Elyssa Pollack on 07/24/18 2:[address] Patient Name: NGA LEWIS Admission Status: Elective Accout number: [id number] Admission Date: 07-23-2018 : 1955 Admission Diagnosis: Attending: NORMA ROBERTS Current LOS: 1 Anticipated DC Date: 07-24-2018 Planned Disposition: Home Primary Insurance: [employer] INS EXCHANGE Discharge Planning Comments: CM met with patient and her daughter to discuss discharge planning. She lives with her and her daughter, Antionette, and her family live in her basement apartment. She states she still uses a walker or wheelchair to get around, otherwise is independent with her care. States she no longer has or needs home health (she had [facility]). She is planning on discharging home today after her procedure, her daughter will take her home. Denies discharge needs. No needs identified. CM will continue to follow and assist with discharge planning/needs. Tank Furnace Operator: Elyssa Pollack DCPIA - Discharge Planning Initial Assessment Updated by [email or web address]: Elyssa Pollack on 07/24/18 3:45 pm * Is the patient Alert and Oriented? Yes * How many steps to enter\exit or inside your home? 1/0 * PCP Dr. Vargas * [facility] [address] * Preadmission Environment Home with Family * ADLs Partial Dependent * Partial ADLs (Assistance needed) Ambulation * Equipment Bedside Commode CPAP Glucometer Walker Wheelchair * List name and contact numbers for known caregivers / representatives who currently or will assist patient after discharge: Antionette Chen - daughter - [phone] Alexandre - - [phone] * Verbal permission to speak to the caregivers and representatives has been obtained from the patient. Yes * Community resources currently utilized None * Additional services required to return to the preadmission environment? No * Can the patient safely return to the preadmission environment? Yes * Has this patient been hospitalized within the prior 30 days at any hospital? No Last DP export: 07/24/18 2:56 p Patient Name: NGA LEWIS Page [id number] at 1417 All edits/amendments must be made on the electronic document DICTATION DATE: 07/27/181416 EQUIPMENT HIRE MANAGER: KOURTNEY 07/27/181416 RPT#: [id number] DC DATE:07/24/18 STATUS: DIS IN [facility] [address] [place] [address] END OF REPORT
--- NOTE | ~2018-07-23 | MORECARE ---
CASE MANAGEMENT DISCHARGE SUMMARY PATIENT: NGA LEWIS UNIT: [id number] ADM DATE: 07/23/18 AGE: 62 : 55 SEX: F ROOM/BED: D.2237 AUTHOR: BERTHA,DOC PHYSICIAN: REFERRING PHYSICIAN: NORMA ROBERTS MD DATE OF SERVICE: 07/24/18 Discharge Plan Patient Name: NGA LEWIS Facility: [facility]:[place] : 1955 Planned Disposition: Home Anticipated Discharge Date: 07/24/18 Discharge Date: Expected LOS: 1 Initial Reviewer: [email or web address] Initial Review Date: 07/24/2018 Generated: 07/24/18 4:56 pm Comments DCP- Discharge Planning Updated by [email or web address]: Elyssa Pollack on 07/24/18 2:[address] Patient Name: NGA LEWIS Admission Status: Elective Accout number: [id number] Admission Date: 07-23-2018 : 1955 Admission Diagnosis: Attending: NORMA ROBERTS Current LOS: 1 Anticipated DC Date: 07-24-2018 Planned Disposition: Home Primary Insurance: [employer] INS EXCHANGE Discharge Planning Comments: CM met with patient and her daughter to discuss discharge planning. She lives with her and her daughter, Antionette, and her family live in her basement apartment. She states she still uses a walker or wheelchair to get around, otherwise is independent with her care. States she no longer has or needs home health (she had [facility]). She is planning on discharging home today after her procedure, her daughter will take her home. Denies discharge needs. No needs identified. CM will continue to follow and assist with discharge planning/needs. Fagot Maker: Elyssa Pollack DCPIA - Discharge Planning Initial Assessment Updated by [email or web address]: Elyssa Pollack on 07/24/18 3:45 pm * Is the patient Alert and Oriented? Yes * How many steps to enter\exit or inside your home? 1/0 * PCP Dr. Vargas * [facility] [address] * Preadmission Environment Home with Family * ADLs Partial Dependent * Partial ADLs (Assistance needed) Ambulation * Equipment Bedside Commode CPAP Glucometer Walker Wheelchair * List name and contact numbers for known caregivers / representatives who currently or will assist patient after discharge: Antionette Chen - daughter - [phone] Alexandre - - [phone] * Verbal permission to speak to the caregivers and representatives has been obtained from the patient. Yes * Community resources currently utilized None * Additional services required to return to the preadmission environment? No * Can the patient safely return to the preadmission environment? Yes * Has this patient been hospitalized within the prior 30 days at any hospital? No Last DP export: 07/24/18 2:47 p Patient Name: NGA LEWIS Page [phone] at 1556 All edits/amendments must be made on the electronic document DICTATION DATE: 07/24/181554 TESTING AND REGULATING TECHNICIAN: KOURTNEY 07/24/181554 RPT#: [id number] DC DATE: STATUS: ADM IN [facility] [address] [place] [address] END OF REPORT
--- NOTE | ~2018-07-23 | MORECARE ---
CASE MANAGEMENT DISCHARGE SUMMARY PATIENT: NGA LEWIS UNIT: [id number] ADM DATE: 07/23/18 AGE: 62 : 55 SEX: F ROOM/BED: D.2237 AUTHOR: TANYA STONE PHYSICIAN: REFERRING PHYSICIAN: NORMA ROBERTS MD DATE OF SERVICE: 07/24/18 Discharge Plan Patient Name: NGA LEWIS Facility: [facility]:[place] : 1955 Planned Disposition: Home Anticipated Discharge Date: 07/24/18 Discharge Date: Expected LOS: 1 Initial Reviewer: [email or web address] Initial Review Date: 07/24/2018 Generated: 07/24/18 4:47 pm DCPIA - Discharge Planning Initial Assessment Updated by [email or web address]: Elyssa Pollack on 07/24/18 3:45 pm * Is the patient Alert and Oriented? Yes * How many steps to enter\exit or inside your home? 1/0 * PCP Dr. Vargas * Pharmacy [facility] on [address] * Preadmission Environment Home with Family * ADLs Partial Dependent * Partial ADLs (Assistance needed) Ambulation * Equipment Bedside Commode CPAP Glucometer Walker Wheelchair * List name and contact numbers for known caregivers / representatives who currently or will assist patient after discharge: Antionette Chen - daughter - [phone] Alexandre Smith - [phone] * Verbal permission to speak to the caregivers and representatives has been obtained from the patient. Yes * Community resources currently utilized None * Additional services required to return to the preadmission environment? No * Can the patient safely return to the preadmission environment? Yes * Has this patient been hospitalized within the prior 30 days at any hospital? No Patient Name: NGA LEWIS Page [phone] at 1547 All edits/amendments must be made on the electronic document DICTATION DATE: 07/24/181546 TRAUMA REGISTRAR: KOURTNEY 07/24/181546 RPT#: [id number] DC DATE: STATUS: ADM IN [facility] [address] [place] [address] END OF REPORT
[2018-07-23 15:21] LABS: BASOPHILS 0.3 % (0-2); EOSINOPHILS 5.6 % (0-7); HEMATOCRIT 34.7 % (36.0-48.0); IMMATURE GRANULOCYTES 0.3 % (0-5); LYMPHOCYTES 20.6 % (15-50); MCH 26.3 pg (26.0-34.0); MCHC 31.7 g/dL (31.0-37.0); MEAN PLATELET VOLUME 11.8 fL (7.4-10.4); NEUTROPHILS 65.2 % (40-80); PLATELET COUNT 185 10x3/uL (130-400); RBC 4.18 10x6/uL (4.00-5.40); RDW 17.5 % (11.5-14.5); WBC 5.7 10x3/uL (4.8-10.8)
[2018-07-23 15:35] LABS: ALBUMIN 3.6 g/dL (3.4-5.0); ANION GAP 8.9 mmol/L (8-16); BILIRUBIN - TOTAL 0.52 mg/dL (0.2-1.3); CARBON DIOXIDE 33.8 mmol/L (21.0-32.0); MAGNESIUM - SERUM 2.4 mg/dL (1.8-2.4); POTASSIUM - SERUM 4.7 mmol/L (3.5-5.1); PROTEIN - SERUM 7.7 g/dL (6.4-8.2)
[2018-07-23 17:29] LABS: APPEARANCE CLEAR (CLEAR); BILIRUBIN NEGATIVE (NEGATIVE); COLOR YELLOW (YELLOW); EPITHELIAL CELLS 0-5 /hpf (0-5); GLUCOSE NEGATIVE (NEGATIVE); KETONE NEGATIVE (NEGATIVE); NITRITE NEGATIVE (NEGATIVE); PROTEIN NEGATIVE (NEGATIVE); RED CELLS - URINE NONE SEEN /hpf (0-5); SPECIFIC GRAVITY 1.015 (1.005-1.020); UROBILINOGEN NORMAL (NORMAL); WHITE CELLS - URINE NSEEN /hpf (0-5)
[2018-07-23 17:30] LABS: BACTERIA MODERATE /hpf (NONE SEEN)
[2018-07-23 17:53] VITALS: BP 139/53
[2018-07-23 20:00] VITALS: BP 120/83
[2018-07-24 04:00] VITALS: BP 121/33
[2018-07-24 05:53] LABS: BASOPHILS 0.3 % (0-2); EOSINOPHILS 6.1 % (0-7); HEMATOCRIT 33.5 % (36.0-48.0); HEMOGLOBIN 10.5 g/dL (12-16); IMMATURE GRANULOCYTES 0.1 % (0-5); LYMPHOCYTES 21.5 % (15-50); MCH 26.1 pg (26.0-34.0); MCHC 31.3 g/dL (31.0-37.0); MCV 83.3 fL (80.0-100.0); MEAN PLATELET VOLUME 11.8 fL (7.4-10.4); MONOCYTES 10.7 % (2-11); NEUTROPHILS 61.3 % (40-80); PLATELET COUNT 203 10x3/uL (130-400); RBC 4.02 10x6/uL (4.00-5.40); RDW 17.6 % (11.5-14.5); WBC 6.8 10x3/uL (4.8-10.8)
[2018-07-24 06:05] LABS: ALBUMIN 3.2 g/dL (3.4-5.0); ANION GAP 10.7 mmol/L (8-16); BILIRUBIN - TOTAL 0.52 mg/dL (0.2-1.3); CALCIUM 8.8 mg/dL (8.5-10.1); CARBON DIOXIDE 31.4 mmol/L (21.0-32.0); POTASSIUM - SERUM 4.1 mmol/L (3.5-5.1); PROTEIN - SERUM 7.1 g/dL (6.4-8.2)
[2018-07-24 08:34] VITALS: BP 110/38
[2018-07-24 09:25] VITALS: BP 110/38; BMI 41.5
[2018-07-24 11:31] VITALS: Ht 149.9 cm; Wt 93.0 kg
[2018-07-24 11:38] LABS: INR 1.11 (0.85-1.17); PROTIME 13.9 SECONDS (11.6-15.0)
[2018-07-24 12:22] VITALS: BP 119/57
== END 2018-07-24 19:41 | disposition home or self-care (01) ==
LOC: OBSVTIME → D.OPS 14:21 → OBSVTIME 14:21 → D.MS 14:21 → D.OPS 07-24 19:41 → D.MS 07-24 19:41
PROVIDERS: Family Medicine; Internal Medicine Nephrology
DX: R18.8 Other ascites (principal); K74.60 Unspecified cirrhosis of liver; I25.10 Atherosclerotic heart disease of native coronary artery without angina pectoris; I10 Essential (primary) hypertension; E11.40 Type 2 diabetes mellitus with diabetic neuropathy, unspecified; F41.9 Anxiety disorder, unspecified

== ENCOUNTER 2018-09-01 10:47 | Outpatient (CLI) | payer OTHER ==
[~2018-09-01] VITALS: Ht 149.9 cm; Wt 94.5 kg
--- NOTE | ~2018-09-01 | OP ---
PATIENT NAME: NGA LEWIS MEDICAL RECORD: [id number] :55 LOCATION:D.CAT ADMISSION DATE: SURGEON: JUAN ALTMAN MD DATE OF OPERATION: 09/01/2018 PROCEDURE: Left heart catheterization, selective coronary angiography, within the right radial; however, due to intense spasm inability to manipulate the catheter, we went femoral. CATHETERS: A 5-Amharic sheath, 5/4 left and right Blaine, 5/4 pig. The procedure was well tolerated. The patient returned to ch, sheath removed. ExoSeal device was placed. FINDINGS: Left ventriculography in 30-degree BOSWELL view shows normal wall motion and normal systolic function. EF greater than or equal to 55%. LVEDP mildly elevated at 20 mmHg. CORONARY ANATOMY: LEFT MAIN: Left main is free of disease. LAD: Free of disease in the diagonal system. CIRCUMFLEX: Free of disease in the marginal system. RIGHT CORONARY ARTERY: Dominant artery, gives rise to PDA, free of disease. IMPRESSION: Normal systolic function. Normal coronary anatomy. TRANSINT:[id number] Voice Confirmation ID: [id number] DOCUMENT ID: [id number] JUAN ALTMAN MD at 1546 CC: [id number] DICTATION DATE: 09/01/18 1407 HOSPITAL ATTENDANT: 09/01/18 1509 [facility] [address] [place] [address]
--- NOTE | ~2018-09-01 | HEMODYNAMI ---
PATIENT:NGA LEWIS MEDICAL RECORD: [id number] : 55 LOCATION:[facility] ADMISSION DATE: 09/01/18 Generatedon:09/01/201814:09 Patient name: NGA LEWIS Patient #: [id number] SSN: D OB: 1955 Date of study: 09/01/2018 Page: Of Hemodynamic Procedure Report Patient Data Patient Demographics Procedure consent was obtained First Name: NGA Gender: Female Last Name: DEBBIE : 1955 Middle Initial: MAICOL Age: 63 year(s) Patient #: [id number] Race: Unknown Additional ID: [id number] Contact details [address]: [address] [place] [address] State: [place] City: [place] Zip code: [address] Admission Admission Data Admission Date: 09/01/2018 Admission Time: 10:47 Height (in.): 52 BSA: 1.7 (m2) Height (cm.): 132.08 BMI: 53.04 (kg/m2) Weight (lbs.): 204 Weight (kg.): 92.53 Lab Results Lab Result Date: 09/01/2018 Lab Result Time: 0:00 Biochemistry Name Units Result Min Max BUN mg/dl 30 --(----)-* 7 18 Creatinine mg/dl 1 --(--*-)-- 0.6 1.3 CBC Name Units Result Min Max Hemoglobin g/dl 10.8 *-(----)-- 13.5 17.5 Procedure Procedure Types Cath Procedure Diagnostic Procedure LHC LHC w/Coronaries Sedation Charges Moderate Sedation up to 15 minutes Procedure Description Procedure Date Procedure Date: 09/01/2018 Procedure Start Time: 13:38 Procedure End Time: 14:05 Procedure Staff Name Function Allan Hickey MD Performing Physician Cristy Jaimes RT Scrub Radha Barraza RN Nurse Annita Calero RT Monitor Minh Avila RN Problem Manager Procedure Data Cath Procedure Fluoroscopy Diagnostic fluoroscopy Total fluoroscopy Time: 4.1 time: 4.1 min min Diagnostic fluoroscopy Total fluoroscopy dose: 638 dose: 638 mGy mGy Contrast Material Contrast Material Type Amount (ml) Isovue 300 71 Entry Location Entry Primary Successful Side Size Upsize Upsize Entry Closure Turcios ccessful Closure Location (Fr) 1 (Fr) 2 (Fr) Remarks Device Remarks Radial Right 6 Fr Mechanical artery Short Compression Femoral Right 5 Fr Exoseal artery Estimated blood loss: 5 ml Diagnostic catheters Device Type Used For End Catheter Placement DIAGNOSTIC Veyo 110cm 5 Procedure Fr catheter ([id number]) MULTIPACK JL 4.0 5Fr Procedure catheter MULTIPACK 3DRC 5Fr Procedure catheter MULTIPACK Pigtail 5 Fr Procedure catheter Procedure Complications No complications Procedure Medications Medication Administration Route Dosage 0.9% NaCl I.V. 100 ml/hr Oxygen etCO2 Nasal cannula 2 l/min Lidocaine 2% added to field 20 Heparin Flush Bag added to field 2 bags (1000units/500ml NS) Radial Cocktail added to field 1 syringe (Verapomil 2mg/Nitro 400mcg/Heparin 1500units) Versed I.V. 2 mg Fentanyl I.V. 50 mcg Versed I.V. 2 mg Nitroglycerin IC/IA I.C. 600 mcg Fentanyl I.V. 50 mcg Hemodynamics Rest BSA: 1.7 (m2) O2 Consumption: Estimated: 160.56 (ml/min) O2 Consumption indexed: Estimated:94.45 (ml/min/m) Heart Rate: 71 (bpm) Pressure Samples Time Site Value (mmHg) Purpose Heart Use Rate(bpm) 14:01 LV 134/26,37 Snapshot 59 14:01 AO 140/85(100) Pullback 58 14:01 LV 125/17,40 Pullback 58 Gradients Valve Time Site 1 Site 2 Mean SEP/DFP Peak To Heart Use (mmHg) (sec/min) Peak Rate (mmHg) (bpm) Aortic 14:01 LV AO 0 4 0 58 125/17,40 140/85(100) Calculations Valve P-P Mean Valve Index Valve Source Name Gradient Area Flow (cm2) Aortic 0 0 0 0 Snapshots Pre Cath Intra NCS Post Cath Vital Signs Time Heart Resp SPO2 etCO2 NIBP (mmHg) Rhythm Pain Sedation Rate (ipm) (%) (mmHg) Status Level (bpm) 13:28:21 59 23 100 32.3 137/71(94) NSR 0 (11) 10(A) , No pain 13:32:45 59 19 100 23.2 131/66(94) NSR 0 (11) 10(A) , No pain 13:37:05 59 15 96 27 135/68(99) NSR 0 (11) 10(A) , No pain 13:41:25 59 12 98 18 138/71(96) NSR 0 (11) 9(A) , No pain 13:45:43 69 19 96 36.8 127/71(102) NSR 0 (11) 10(A) , No pain 13:50:06 60 15 98 26.2 133/70(103) NSR 0 (11) 10(A) , No pain 13:54:30 59 12 97 20.2 134/73(114) NSR 0 (11) 9(A) , No pain 13:58:48 58 14 98 27 137/71(104) NSR 0 (11) 9(A) , No pain 14:03:02 58 13 99 34.5 124/67(94) NSR 0 (11) 9(A) , No pain Medications Time Medication Route Dose Verified Delivered Reason Notes Effectiveness by by 13:30:36 0.9% NaCl I.V. 100 Allan Radha used for ml/hr Ruperto Madi procedure MD LINN 13:30:43 Oxygen etCO2 2 l/min Allan Dodsona used for Nasal Ruperto Madi procedure cannula MD LINN 13:30:49 Lidocaine 2% added 20ml Allan Lemus for local [facility] KIRKP[facility]ICK 13:30:53 Heparin Flush added 2 bags Allan Lemus used for [facility] (1000units/500ml field MD KIRKPATRICK NS) 13:30:58 Radial Cocktail added 1 Allan Lemus used for (Verapomil to syringe Ruperto Ruperto procedure 2mg/Nitro field MD KIRKPATRICK 400mcg/Heparin 1500units) 13:38:03 Versed I.V. 2 mg Allan Radha for sedation [facility] Earl Barraza MD RN 13:38:08 Fentanyl I.V. 50 mcg Allan Johnsyla for sedation [facility] Earl Barraza MD, RN 13:42:44 Versed I.V. 2 mg Allan Radha for sedation [facility] Earl Barraza MD, RN 13:52:52 Nitroglycerin I.C. 600 mcg Allan Garcia for IC/IA St Earl mancilla MD RN 13:53:56 Fentanyl I.V. 50 mcg Allan Garcia for sedation St Earl Barraza MD immigration case worker Log Time Note 13:02:03 Patient Height : 52 inches 13:02:11 Patient Weight : 204 lbs 13:03:28 Diagnostic Cath status Elective 13:03:31 El Dumontley RT(R) sent for patient. Start room use. 13:03:33 Time tracking: Regular hours (M-F 7:00 - 5:00) 13:03:39 Plan of Care:Hemodynamics will remain stable., Cardiac rhythm will remain stable., Comfort level will be maintained., Respiratory function will remain adequate., Patient/ family verbilizes understanding of procedure., Procedure tolerated without complication., Recovers from procedure without complications.. 13:24:27 Vital chart was started 13:30:36 0.9% NaCl 100 ml/hr I.V. was administered by Radha Barraza RN; used for procedure; 13:30:43 Oxygen 2 l/min etCO2 Nasal cannula was administered by Radha Barraza RN; used for procedure; 13:30:49 Lidocaine 2% 20ml vial added to field was administered by Allan Hickey MD; for local anesthetic; 13:30:53 Heparin Flush Bag (1000units/500ml NS) 2 bags added to field was administered by Allan Hickey MD; used for procedure; 13:30:58 Radial Cocktail (Verapomil 2mg/Nitro 400mcg/Heparin 1500units) 1 syringe added to field was administered by Allan Hickey MD; used for procedure; 13:32:33 Patient received from Pre/Post Procedure Room to [facility] 1 Alert and oriented. Tansferred to table in Supine position. 13:32:35 Warm blankets applied, and cynthia hugger turned on for patient comfort. 13:32:35 Correct patient and procedure confirmed by team. 13:32:36 Signed procedure consent form obtained from patient. 13:32:37 ECG and BP/O2 sat monitors applied to patient. 13:33:09 H&P Date Dictated: 08/26/2018 Within 30 days and on chart., H&P Addendum completed by physician on day of procedure. (MUST COMPLETE FOR ALL OUTPATIENTS). 13:34:25 Pre-procedure instructions explained to patient. 13:34:25 Pre-op teaching completed and patient verbalized understanding. 13:34:35 Family in waiting room. 13:34:42 Is patient on blood thinner?No 13:34:42 Patient diabetic? Yes. 13:34:44 If diabetic: On Metformin? No 13:34:46 Previous problem with sedation/anesthesia? No ? 13:34:47 Snore? Yes 13:34:50 Deviated septum? No 13:34:50 Opens mouth fully? Yes 13:34:51 Sticks out tongue? Yes 13:34:54 Airway obstruction? Yes COPD 13:34:57 Dentures? Yes ? 13:34:58 Modified Mitch's test Ulnar < 7 seconds 13:35:02 Patient pain scale 0/10 ?. 13:35:07 IV patent on arrival in left hand with 0.9% NaCl at [facility]. 13:35:10 Lab results completed and on chart. 13:35:12 Right Radial & Right Groin area was prepped with chlora-prep and draped in sterile fashion 13:35:13 Alarms reviewed by R. N. 13:35:14 Sharps counted by scrub and verified by R.N. 13:35:15 --------ALL STOP TIME OUT------ 13:35:15 Final Timeout: patient, procedure, and site verified with staff and physician. All members of the team are in agreement. 13:35:17 Right Radial & Right Groin site verified by team. 13:35:21 Physical assessment completed. ASA score P 2 - A patient with mild systemic disease as per Allan Hickey MD. 13:35:24 Sedation plan: IV Moderate Sedation Medication:Versed, Fentanyl 13:35:28 Use device set Radial Dx or PCI 13:35:29 ACIST Syringe (64279) opened to sterile field. 13:35:29 Bag Decanter () opened to sterile field. 13:35:30 ACIST Hand Control (51361) opened to sterile field. 13:35:31 ACIST Manifold (44775) opened to sterile field. 13:35:31 Tegaderm 4 x 4 (1626W) opened to sterile field. 13:35:32 Medline Cath Pack ([id number]) opened to sterile field. 13:35:32 DIAGNOSTIC WIRE .035 260cm J wire (643213) opened to sterile field. 13:35:33 MBrace Wrist Support ([id number]) opened to sterile field. 13:35:34 SHEATH 6FR Slender (57-5548) opened to sterile field. 13:38:03 Versed 2 mg I.V. was administered by Radha Barraza RN; for sedation; 13:38:08 Fentanyl 50 mcg I.V. was administered by Radha Barraza RN; for sedation; 13:38:11 Procedure started. 13:38:11 Full Disclosure recording started 13:38:34 Local anesthetic to right radial artery with Lidocaine 2% by Allan Hickey MD.INITIAL ACCESS ONLY 13:39:09 Zero performed for pressure channel P1 13:42:25 Lab Result : Creatinine 1 mg/dl 13:42:25 Lab Result : BUN 30 mg/dl 13:42:25 Lab Result : Hemoglobin 10.8 g/dl 13:42:44 Versed 2 mg I.V. was administered by Radha Barraza RN; for sedation; 13:43:57 A 6 Fr Short sheath was inserted into the Right Radial artery 13:44:20 A DIAGNOSTIC Veyo 110cm 5 Fr catheter ([id number]) was advanced over the wire and used for Procedure. 13:45:20 Baseline sample Acquired. 13:51:23 RADIAL SPASM. WILL GO FEMORAL 13:51:55 Zero performed for pressure channel P1 13:52:52 Nitroglycerin IC/IA 600 mcg I.C. was administered by Radha Barraza RN; for vasodilation; 13:53:56 Fentanyl 50 mcg I.V. was administered by Radha Barraza RN; for sedation; 13:55:34 TR BAND Standard ([id number]) opened to sterile field. 13:55:45 Sheath removed intact; hemostasis achieved with Mechanical Compression to the Right Radial artery. 13:55:51 TR band inflated with 11cc of air. 13:55:59 Local anesthetic to right femoral artery with Lidocaine 2% by Allan Hickey MD.ADDITIONAL ACCESS 13:56:07 A 5 Fr sheath was inserted into the Right Femoral artery 13:56:17 Use device set Multipack Set 13:56:20 DIAGNOSTIC Multipack 5Fr catheter set ([id number]) opened to sterile field. 13:56:25 A MULTIPACK JL 4.0 5Fr catheter was advanced over the wire and used for Procedure. 13:57:57 LCA angiography performed. 13:58:37 Catheter removed. 13:58:56 A MULTIPACK 3DRC 5Fr catheter was advanced over the wire and used for Procedure. 13:59:50 RCA angiography performed. 13:59:52 Catheter removed. 13:59:59 A MULTIPACK Pigtail 5 Fr catheter was advanced over the wire and used for Procedure. 14:01:08 LV gram done using BOSWELL 14:01:10 Injector settings: Ml/sec: 10, Volume: 20, 14:01:24 LV hemodynamics recorded. 14:01:53 EF : 50 % 14:01:57 Catheter removed. 14:02:06 EXOSEAL 5Fr (EX500) opened to sterile field. 14:02:49 Sheath removed intact; hemostasis achieved with Exoseal to the Right Femoral artery. 14:02:53 Procedure ended.(Physican Out) 14:03:24 Fluoroscopy time 04.10 minutes. 14:03:32 Fluoroscopy dose: 638 mGy 14:03:32 Flurop Dose total: 638 14:03:48 Contrast amount:Isovue 300 71ml. 14:03:49 Sharps counted by scrub and verified by R.N. 14:03:53 Post-op/insertion site Right Femoral artery dressed using a 4 x 4 and Tegaderm. 14:03:58 Post right femoral artery:stable, soft, clean and dry 14:04:04 Post-procedure physical assessment completed. ASA score P 2 - A patient with mild systemic disease as per Allan Hickey MD. 14:04:07 Post procedure rhythm: sinus bradycardia 14:04:11 Estimated blood loss: 5 ml 14:04:12 Post procedure instruction explained to patient.Patient verbalizes understanding. 14:04:12 Patient needs reinforcement of post procedure teaching. 14:04:26 Procedure type changed to Cath procedure, Diagnostic procedure, LHC, LHC w/Coronaries, Sedation Charges, Moderate Sedation up to 15 minutes 14:05:34 Procedure and supply charges have been captured, reviewed, submitted and are correct. 14:05:36 Procedure Complication : No complications 14:05:38 Vital chart was stopped 14:05:43 See physician's report for complete and final results. 14:05:45 Report given to Pre/Post Procedure Room. 14:05:47 Patient transfered to Pre/Post Procedure Room with Bed. 14:05:49 Procedure ended. 14:05:49 Full Disclosure recording stopped 14:05:53 End room use (Document Last) Device Usage Item Name Manufacture Quantity Catalog Hospital Part Current Minimal Lot# / Number Charge Number Stock Stock Serial# Code ACIST Acist 1 74789 066037 797990 772802 20 Syringe Medical (16544) Systems Inc Bag Microtek 1 2001S 643347 92695 793394 5 Decanter Medical Inc. () ACIST Hand Acist 1 03995 792307 095418 287616 5 Control Medical (00386) Systems Inc ACIST Acist 1 08614 818018 592812 764906 5 Manifold Medical (18099) Systems Inc Tegaderm 4 3M 1 1626W 677378 443395 170565 5 x 4 (1626W) Medline Medline 1 [id number] 355650 38122 314365 5 Cath Pack ([id number]) DIAGNOSTIC St Timur 1 910321 582233 652799 065628 30 WIRE .035 260cm J wire (632070) MBrace Advanced 1 140-0250-00 982204 32313 600346 5 Wrist Vascular Support Dynamics ([id number]) SHEATH 6FR Terumo 1 [id number] 701726 697617 920328 5 Slender (80-1060) DIAGNOSTIC Terumo 1 40-7383 114227 386403 698678 5 Veyo 110cm 5 Fr catheter (376494) TR BAND Terumo 1 [id number] 311535 108283 011843 40 Standard ([id number]) DIAGNOSTIC Cardinal 1 [id number] 911023 91117 994604 30 Multipack Health 5Fr catheter set (KU3209) MULTIPACK Cardinal 1 676752 5 JL 4.0 5Fr Health catheter MULTIPACK Cardinal 1 967223 5 3DRC 5Fr Health catheter MULTIPACK Cardinal 1 075281 5 Pigtail 5 Health Fr catheter EXOSEAL 5Fr Cardinal 1 EX500 333138 572271 015463 10 (EX500) Health Signature Audit [place] Stage Time Signature Unsigned Intra-Procedure 09/01/2018 Annita Calero 2:09:23 PM RT(R) Signatures Monitor : Annita Calero Signature : RT Date : Time : [address] [place] [address]
[2018-09-01 11:20] VITALS: BP 139/59; Ht 149.9 cm; Wt 94.5 kg
[2018-09-01 11:36] LABS: BASOPHILS 0.2 % (0-2); EOSINOPHILS 4.3 % (0-7); HEMATOCRIT 34.1 % (36.0-48.0); HEMOGLOBIN 10.8 g/dL (12-16); IMMATURE GRANULOCYTES 0.3 % (0-5); LYMPHOCYTES 15.6 % (15-50); MCHC 31.7 g/dL (31.0-37.0); MCV 85.3 fL (80.0-100.0); MEAN PLATELET VOLUME 12.6 fL (7.4-10.4); MONOCYTES 7.5 % (2-11); NEUTROPHILS 72.1 % (40-80); PLATELET COUNT 164 10x3/uL (130-400); RDW 16.8 % (11.5-14.5); WBC 5.8 10x3/uL (4.8-10.8)
[2018-09-01 11:43] LABS: ANION GAP 10.4 mmol/L (8-16); CALCIUM 8.6 mg/dL (8.5-10.1); POTASSIUM - SERUM 4.4 mmol/L (3.5-5.1)
[2018-09-01] MEDS ORDERED: ALDACTONE25 MG PO (14:22)
== END 2018-09-01 16:25 | disposition home or self-care (01) ==
LOC: D.CATH 10:47 → D.US 01-04 09:30
PROVIDERS: Internal Medicine Interventional Cardiology
DX: I20.9 Angina pectoris, unspecified (principal); Z01.812 Encounter for preprocedural laboratory examination

== ENCOUNTER 2018-10-12 05:50 | Outpatient (CLI) | payer OTHER ==
[~2018-10-12] VITALS: Ht 149.9 cm; Wt 95.0 kg
[~2018-10-12 05:50] MED LIST changes: +ALDACTONE25 MG PO
[2018-10-12 06:13] LABS: BASOPHILS 0.2 % (0-2); HEMATOCRIT 34.8 % (36.0-48.0); HEMOGLOBIN 10.9 g/dL (12-16); IMMATURE GRANULOCYTES 0.2 % (0-5); LYMPHOCYTES 17.7 % (15-50); MCH 27.3 pg (26.0-34.0); MCHC 31.3 g/dL (31.0-37.0); MCV 87.2 fL (80.0-100.0); MEAN PLATELET VOLUME 11.6 fL (7.4-10.4); MONOCYTES 9.4 % (2-11); NEUTROPHILS 68.5 % (40-80); PLATELET COUNT 163 10x3/uL (130-400); RBC 3.99 10x6/uL (4.00-5.40); RDW 15.5 % (11.5-14.5); WBC 5.6 10x3/uL (4.8-10.8)
[2018-10-12 06:25] LABS: APTT 32.7 SECONDS (22.8-39.4); INR 1.23 (0.85-1.17); PROTIME 14.9 SECONDS (11.6-15.0)
[2018-10-12 06:33] LABS: ALBUMIN 3.5 g/dL (3.4-5.0); ANION GAP 12.2 mmol/L (8-16); BILIRUBIN - TOTAL 0.34 mg/dL (0.2-1.3); CALCIUM 8.5 mg/dL (8.5-10.1); CARBON DIOXIDE 30.2 mmol/L (21.0-32.0); CREATININE - SERUM 1.2 mg/dL (0.6-1.3); POTASSIUM - SERUM 4.4 mmol/L (3.5-5.1); PROTEIN - SERUM 7.3 g/dL (6.4-8.2)
[2018-10-12 07:06] VITALS: BP 118/68; Ht 149.9 cm; Wt 95.0 kg
--- NOTE | 2018-10-12 13:02 | NUR ---
0925 VS RECORDED ON POST PROCEDURE CHECKLIST AND IN CHART. 1100 PT UP TO BATHROOM WITH ASSISTANCE. NO C/O PAIN, NAUSEA OR VOMITING. 1150 DAYDAY LIND RN CALLED RADIOLOGY DEPARTMENT TO VERIFY TIME PT COULD BE DISCHARGED HOME. PT HAS MET DISCHARGE CRITERIA. DAYDAY LIND RN RECEIVED PHONE ORDERS THAT PATIENT COULD BE DISCHARGED AFTER BEING HERE ONE HOUR AND MEETING OUR CRITERIA. 1152 IV DC'D. CATHETER INTACT. NO BLEEDING AT SITE AFTER HOLDING PRESSURE. BANDAID APPLIED. 1204 PT READY FOR DISCHARGE HOME. TO PERSONAL VEHICLE VIA [employer].
== END 2018-10-12 12:04 | disposition home or self-care (01) ==
LOC: D.CT 05:50
PROVIDERS: Specialist
DX: R18.8 Other ascites (principal)

== ENCOUNTER → 2018-12-14 13:23 | Outpatient (CLI) | payer OTHER ==
[2018-10-12 07:06] VITALS: BMI 42.3
[2018-12-14 14:54] LABS: INR 1.08 (0.85-1.17); PROTIME 13.5 SECONDS (11.6-15.0)
[2018-12-14 14:55] LABS: BASOPHILS 0.1 % (0-2); EOSINOPHILS 3.2 % (0-7); HEMATOCRIT 38.1 % (36.0-48.0); HEMOGLOBIN 12.2 g/dL (12-16); IMMATURE GRANULOCYTES 0.1 % (0-5); LYMPHOCYTES 18.7 % (15-50); MCH 28.2 pg (26.0-34.0); MONOCYTES 8.2 % (2-11); NEUTROPHILS 69.7 % (40-80); RBC 4.33 10x6/uL (4.00-5.40); RDW 15.4 % (11.5-14.5); WBC 7.2 10x3/uL (4.8-10.8)
[2018-12-14 14:59] LABS: PLATELET COUNT 199 10x3/uL (130-400)
[2018-12-14 15:45] LABS: ALBUMIN 4.1 g/dL (3.4-5.0); ANION GAP 13.4 mmol/L (8-16); BILIRUBIN - TOTAL 0.93 mg/dL (0.2-1.3); CALCIUM 8.8 mg/dL (8.5-10.1); CARBON DIOXIDE 31.7 mmol/L (21.0-32.0); CHOL - HDL RATIO 3.8 ratio (2.3-4.1); CREATININE - SERUM 1.3 mg/dL (0.6-1.3); POTASSIUM - SERUM 5.1 mmol/L (3.5-5.1); PROTEIN - SERUM 8.6 g/dL (6.4-8.2); THYROID STIMULATING HORMONE 1.27 uIU/mL (0.36-3.74)
[2018-12-14 15:59] LABS: LDL-HDL RATIO 2.2 ratio (1.5-3.5)
== END | disposition home or self-care (01) ==
LOC: D.LAB 13:23
PROVIDERS: ATTEND Family Medicine
DX: I25.10 Atherosclerotic heart disease of native coronary artery without angina pectoris (principal); E55.9 Vitamin D deficiency, unspecified; K76.0 Fatty (change of) liver, not elsewhere classified; E11.9 Type 2 diabetes mellitus without complications; E78.5 Hyperlipidemia, unspecified

== ENCOUNTER → 2019-01-04 09:17 | Outpatient (CLI) | payer OTHER ==
[2018-10-12 07:06] VITALS: BMI 42.3
[2019-01-04 10:41] LABS: ALBUMIN 3.7 g/dL (3.4-5.0); BILIRUBIN - DIRECT 0.14 mg/dL (0.00-0.30); BILIRUBIN - INDIRECT 0.37 mg/dL (0.00-1.00); BILIRUBIN - TOTAL 0.51 mg/dL (0.2-1.3); PROTEIN - SERUM 7.9 g/dL (6.4-8.2)
== END | disposition home or self-care (01) ==
LOC: D.US 09:17
PROVIDERS: ATTEND Internal Medicine Gastroenterology
DX: K76.0 Fatty (change of) liver, not elsewhere classified (principal)

== ENCOUNTER 2019-04-18 16:24 | Inpatient (IN) | payer OTHER ==
[~2019-04-18] VITALS: Ht 149.9 cm; Wt 97.5 kg
--- NOTE | ~2019-04-18 | EC ---
PATIENT:NGA LEWIS DATE OF SERVICE: 04/19/19 SEX: F MEDICAL RECORD: [id number] DATE OF : 55 LOCATION:D.M2 D.212 AGE OF PATIENT: 63 ADMISSION DATE: 04/19/19 REFERRING PHYSICIAN: INTERPRETING PHYSICIAN: DARY ANDERSON MD ECHOCARDIOGRAM REPORT ECHO CHARGES 4 ECHO COMPLETE Date: 04/21/19 CLINICAL DIAGNOSIS: BUBBLE STUDY ECHOCARDIOGRAPHIC MEASUREMENTS (adult normal given) AC root (d.<3.7cm) 0 cm LV Septum d (<1.2 cm> 0 cm Valve Excursion 0 cm LV Septum (systole) 0 cm Left Atria (s.<4.0cm> 0 cm LVPW d(<1.2cm) 0 cm RV (d.<2.3cm) 0 cm LVPW (sytole) 0 cm LV diastole(<5.6CM) 0 cm MV E-F(>70mm/sec) 0 cm LV systole 0 cm LVOT Diameter 0 cm MV exc.(>10mm) 0 cm Est.ejection fraction (50-75%) % DOPPLER: LVIT cm/sec A 0 cm/sec E 00 cm/sec LA 0 cm/sec RVSP 0 mmHg LVOT 124 cm/sec AOP1/2T m/s Asc. Ao 0 cm/sec RVOT 0 cm/sec RA 0 cm/sec PA 0 cm/sec AV Gradient Peak 0 mmHg AV Mean 11.3 mmHg AV Area 0 cm MV Gradient Peak 0 mmHg MV Mean 4.2 mmHg MV Area 0 cm COMMENTS: 0 Electrical Machinist: Feng DOUGLASS Drivability Technician: 1 Dr. Anderson TAPE# PACS Pericardial Effusion N DATE OF SERVICE: 04/23/2019 ECHOCARDIOGRAM WITH BUBBLE STUDY DATE OF SERVICE: 04/23/2019 FINDINGS: 1. Left ventricular chamber size is within normal limits. Left ventricular systolic function is normal at 55% to 60%. 2. Left atrium, right atrium, and right ventricular chamber sizes are dilated. ECHOCARDIOGRAM REPORT [id number] NGA LEWIS 3. Valvular structures have normal structure and motion. 4. Doppler interrogation reveals mild aortic insufficiency, mild mitral regurgitation, moderate tricuspid regurgitation, no other valvular insufficiency or stenosis. 5. Bubble study was performed. No evidence of left to right or right to left shunt. TRANSINT:[id number] Voice Confirmation ID: [id number] DOCUMENT ID: [id number] DARY ANDERSON MD CC: [id number] DICTATION DATE: 04/23/19 1451 SPECIALTY COOK: 04/23/19 1547 ADM IN [place] [id number] [place] [id number]
--- NOTE | ~2019-04-18 | ST ---
PATIENT:NGA LEWIS MEDICAL RECORD: [id number] SEX: F [facility] ORDER #: ADMISSION DATE: 04/19/19 AGE OF PATIENT: 63 REFERRING PHYSICIAN: INTERPRETING PHYSICIAN: DARY VERDUZCO MD DATE OF SERVICE: 04/20/2019 PROCEDURE: Nuclear stress test. INDICATION: Shortness of breath, angina. PROCEDURE IN DETAIL: The patient was exercised on standard Lexiscan protocol with 33 mCi sestamibi injected at peak stress, 11 mCi were used previously for rest images. FINDINGS: Gated SPECT reveals preserved ejection fraction at 72% with good wall motioning and thickening and brightening throughout all segments. SPECT imaging: Cardiolite was used as myocardial perfusion agent. There is reversibility anteriorly, apically, and laterally. This includes the basal, mid, apical anterior segments, the apex itself and the basal, mid, apical, and lateral segments. The degree of reversibility is moderate anteriorly, moderate apically, and mild laterally. There was a large amount of myocardium involved. OVERALL IMPRESSION: This is an abnormal nuclear stress test, intermediate to high risk with a large amount of myocardium demonstrating reversible ischemia anteriorly, apically, and laterally suggestive of multivessel coronary artery disease. TRANSINT:[id number] Voice Confirmation ID: [id number] DOCUMENT ID: [id number] DARY VERDUZCO MD CC: [id number] DICTATION DATE: 04/20/19 1229 FINE ARTS CHAIR: 04/21/19 0026 ADM IN [facility] [address] [place] [id number]
--- NOTE | ~2019-04-18 | OP ---
PATIENT NAME: NGA LEWIS MEDICAL RECORD: [id number] :55 LOCATION:D.M2 D.2123 ADMISSION DATE:04/19/19 SURGEON: DARY VERDUZCO MD DATE OF OPERATION: 04/21/2019 PROCEDURES: 1. Right heart catheterization with adenosine infusion. 2. Left heart catheterization. 3. Selective coronary angiography. 4. Left ventriculogram. INDICATION: Angina, shortness of breath, pulmonary hypertension. PROCEDURE IN DETAIL: After informed consent was obtained with detailed explanation of risks and benefits as well as alternative therapies, the patient elected to proceed with angiogram and heart catheterization. The right femoral area was prepped and draped in normal sterile fashion. The right femoral artery was cannulated via modified Seldinger technique with placement of 5-[place] sheath. The right femoral vein was cannulated via modified Seldinger technique with placement of 7-[place] sheath. All catheters were exchanged through this sheath. FINDINGS: Left ventriculogram performed in standard 30-degree BOSWELL view reveals good cardiac wall motion. Ejection fraction 65%. SELECTIVE CORONARY ANGIOGRAPHY: Left main, left anterior descending, left circumflex, and right coronary artery have only mild irregularities, but no flow-limiting stenosis. RIGHT HEART CATHETERIZATION: Her pulmonary artery pressure was 88. There was adenosine infusion. With this, it did not change. There were no pressures under 80. OVERALL IMPRESSION: Fixed pulmonary hypertension with no response to adenosine. Normal LV function. Minimal coronary artery disease is present with no flow-limiting stenosis. TRANSINT:[id number] Voice Confirmation ID: [id number] DOCUMENT ID: [id number] DARY VERDUZCO MD CC: [id number] DICTATION DATE: 04/21/191703 DRIER BELT CONVEYOR: 04/21/191999 ADM IN [facility] [address] [place] [address]
--- NOTE | ~2019-04-18 | HEMODYNAMI ---
PATIENT:NGA LEWIS MEDICAL RECORD: [id number] : 55 LOCATION:[facility].[address] [place] [address]# [id number] ADMISSION DATE: 04/19/19 Generatedon:04/21/201917:04 Patient name: NGA LEWIS Patient #: [id number] SSN: [id number] : 1955 Date of study: 04/21/2019 Page: Of Hemodynamic Procedure Report Patient Data Patient Demographics Procedure consent was obtained First Name: NGA Gender: Female Last Name: DEBBIE : 1955 Middle Initial: MAICOL Age: 63 year(s) Patient #: [id number] Race: Unknown SSN: [id number] Additional ID: [id number] Contact details Address: [address] [place] [address] State: [place] City: [facility] Zip code: [address] Past Medical History Allergies Allergen Reaction Date Comments Reported Other allergy 04/21/2019 propoxyphene napsylate Admission Admission Data Admission Date: 04/19/2019 Admission Time: 15:27 Arrival Date: 04/21/2019 Arrival Time: 0:00 Room #: [facility] Insurance Payor: Private health insurance [facility] #: [id number] Height (in.): 59 BSA: 1.9 (m2) Height (cm.): 149.86 BMI: 43.19 (kg/m2) Weight (lbs.): 213.85 Weight (kg.): 97 Lab Results Lab Result Date: 04/21/2019 Lab Result Time: 6:05 Biochemistry Name Units Result Min Max BUN mg/dl 32 --(----)-* 7 18 Creatinine mg/dl 1.3 --(---*)-- 0.6 1.3 CBC Name Units Result Min Max Hematocrit % 30.2 *-(----)-- 42 54 Hemoglobin g/dl 9.8 *-(----)-- 13.5 17.5 Procedure Procedure Types Cath Procedure Diagnostic Procedure [facility] w/Coronaries Right Heart Right Heart Pharmacology Study Procedure Description Procedure Date Procedure Date: 04/21/2019 Procedure Start Time: 16:41 Procedure End Time: 17:03 Procedure Staff Name Function Mark Anderson MD Performing Physician Andrew Mendoza RT Monitor Catracho Cardozo RT Scrub Ruiz Espinoza RN Nurse Indication Chest pain Shortness of breath Procedure Data Cath Procedure Fluoroscopy Diagnostic fluoroscopy Total fluoroscopy Time: 2.1 time: 2.1 min min Diagnostic fluoroscopy Total fluoroscopy dose: 402 dose: 402 mGy mGy Contrast Material Contrast Material Type Amount (ml) Isovue 300 48 Entry Location Entry Primary Successful Side Size Upsize Upsize Entry Closure Succes sful Closure Location (Fr) 1 (Fr) 2 (Fr) Remarks Device Remarks Femoral Right 7 Fr Exoseal vein Short Femoral Right 5 Fr Exoseal artery Estimated blood loss: 5 ml Diagnostic catheters Device Type Used For End Catheter Placement SWAN 7Fr Thermodilution Procedure cather (131F7P) MULTIPACK Pigtail 5 Fr Procedure catheter MULTIPACK JL 4.0 5Fr Procedure catheter MULTIPACK 3DRC 5Fr Procedure catheter Procedure Complications No complications Procedure Medications Medication Administration Route Dosage 0.9% NaCl I.V. 100 ml/hr Oxygen etCO2 Nasal cannula 2 l/min Heparin Flush Bag added to field 2 bags (1000units/500ml NS) Lidocaine 2% added to field 20 Versed I.V. 2 mg Fentanyl I.V. 100 mcg Fentanyl I.V. 50 mcg Versed I.V. 1 mg Adenosine IV 3mg/ml I.V. 50 mcg/kg/min Adenosine IV 3mg/ml I.V. 100 mcg/kg/min Adenosine IV 3mg/ml 100 mcg/kg/min Hemodynamics Rest BSA: 1.9 (m2) HGB: 9.8 (g/dl) O2 Consumption: Estimated: 168.9 (ml/min) O2 Consu mption indexed: Estimated:88.89 (ml/min/m) Heart Rate: 57 (bpm) Pressure Samples Time Site Value (mmHg) Purpose Heart Use Rate(bpm) 16:48 PCW 39/50(38) Snapshot 61 16:48 PCW 43/56(44) Snapshot 56 16:48 PA 88/44(59) Snapshot 54 16:52 LV 107/48,51 Snapshot 79 16:56 PA 81/41(56) Snapshot 58 16:58 PA 77/42(53) Snapshot 59 Snapshots Pre Cath Intra NCS Post Cath Vital Signs Time Heart Resp SPO2 etCO2 NIBP (mmHg) Rhythm Pain Sedation Rate (ipm) (%) (mmHg) Status Level (bpm) 16:22:04 58 16 97 38 98/44(82) NSR 0 (11) 10(A) , No pain 16:26:18 58 15 90 44 108/43(76) NSR 0 (11) 10(A) , No pain 16:30:30 55 12 94 44.7 105/47(79) NSR 0 (11) 10(A) , No pain 16:38:13 52 27 79 45.5 143/98(123) NSR 0 (11) 10(A) , No pain 16:43:41 53 10 95 45.5 118/50(87) NSR 0 (11) 10(A) , No pain 16:49:02 54 18 94 11.1 114/61(90) NSR 0 (11) 9(A) , No pain 16:54:34 57 10 94 20.1 119/52(83) NSR 0 (11) 9(A) , No pain 16:58:46 58 19 94 15.6 109/52(87) NSR 0 (11) 10(A) , No pain 17:02:56 56 11 94 26.8 108/55(89) NSR 0 (11) 10(A) , No pain Medications Time Medication Route Dose Verified Delivered Reason N otes Effectiveness by by 16:23:30 0.9% NaCl I.V. 100 ml/hr Ruiz Ruiz Per Olga Espinoza physician RN RN 16:23:40 Oxygen etCO2 Nasal 2 l/min Ruiz Ruiz for low 02 cannula Olga Espinoza sats RN RN 16:23:57 Heparin Flush added to 2 bags Ruiz Ruiz used for Bag field Lorigan Lorigan procedure (1000units/500ml RN RN NS) 16:24:08 Lidocaine 2% added to 20ml vial Ruiz Ruiz for local field Lorigan Lorigan anesthetic RN RN 16:37:54 Versed I.V. 2 mg Ruiz Ruiz for Lorigan Lorigan sedation RN RN 16:38:03 Fentanyl I.V. 100 mcg Ruiz Ruiz for Lorigan Lorigan sedation RN RN 16:42:24 Fentanyl I.V. 50 mcg Ruiz Ruiz for Lorigan Lorigan sedation RN RN 16:44:10 Versed I.V. 1 mg Ruiz Ruiz for Lorigan Lorigan sedation RN RN 16:54:58 Adenosine IV I.V. 50 Ruiz Ruiz per drug 3mg/ml mcg/kg/min Lorigan Lorigan protocol RN RN 16:56:38 Adenosine IV I.V. 100 Ruiz Ruiz per drug 3mg/ml mcg/kg/min Lorigan Lorigan protocol RN RN 17:01:10 Adenosine IV I.V.(turned 100 Ruiz Ruiz per drug 3mg/ml off) mcg/kg/min Lorigan Lorigan protocol RN forward air controller/air officer Log Time Note 15:44:19 Informed consent obtained and on chart 15:45:37 Catracho DOYLE(R) (CV) sent for patient. Start room use. 15:54:58 Patient allergic to Other allergypropoxyphene napsylate 15:55:03 Patient Weight : 213.85 lbs 15:55:06 Patient Height : 59 inches 15:55:36 Insurance Payor : Private health insurance 15:55:59 Arrival Date: 04/21/2019 12:00:00 AM 15:56:25 Lab Result : Hematocrit 30.2 % 15:56:25 Lab Result : Hemoglobin 9.8 g/dl 15:56:25 Lab Result : BUN 32 mg/dl 15:56:25 Lab Result : Creatinine 1.3 mg/dl 15:56:47 Diagnostic Cath Status : Urgent 15:56:59 ACC Patient presents with Unstable Angina CCS Anginal Class 4--Inability to carry out any physical activity w/o angina. Angina may occur at rest. 15:58:05 ACCPatient has been prescribed/administered the following anti-anginal medication within the last 2 weeks: Beta Robin, MARITZA-Inhibitor 15:58:35 Procedure Status Urgent Heart Cath (IP). 15:58:43 Time tracking: Regular hours (M-F 7:00 - 5:00) 15:58:47 Plan of Care:Hemodynamics will remain stable., Cardiac rhythm will remain stable., Comfort level will be maintained., Respiratory function will remain adequate., Patient/ family verbilizes understanding of procedure., Procedure tolerated without complication., Recovers from procedure without complications.. 15:59:02 H&P Date Dictated: 04/19/2019 Within 30 days and on chart.. 15:59:06 Lab results completed and on chart. 16:04:18 Procedure type changed to Cath procedure, Diagnostic procedure, LHC, LHC w/Coronaries, Right Heart, Right Heart Pharmacology Study 16:04:29 Indication : Chest pain 16:04:52 Indication : Shortness of breath 16:05:56 Patient received from Med II to CCL 1 Alert and oriented. Tansferred to table in Supine position. 16:05:58 Warm blankets applied, and cynthia hugger turned on for patient comfort. 16:05:59 Correct patient and procedure confirmed by team. 16:05:59 ECG and BP/O2 sat monitors applied to patient. 16:06:02 Pre-procedure instructions explained to patient. 16:06:02 Pre-op teaching completed and patient verbalized understanding. 16:06:04 Family in waiting room. 16:06:06 Patient NPO since Midnight. 16:20:52 Vital chart was started 16:20:53 Baseline sample Acquired. 16:20:55 Rhythm: sinus rhythm 16:20:57 Full Disclosure recording started 16:20:59 Is the patient allergic to Iodine/contrast media? No. 16:21:04 Is patient on blood thinner?No 16:21:05 Patient diabetic? Yes. 16:21:06 If diabetic: On Metformin? No 16:21:08 Previous problem with sedation/anesthesia? No ? 16:21:10 Snore? Yes 16:21:11 Sleep apnea? Yes 16:21:12 Deviated septum? No 16:21:13 Opens mouth fully? Yes 16:21:14 Sticks out tongue? Yes 16:21:21 Airway obstruction? Yes COPD/ASTHMA 16:21:23 Dentures? No ? 16:22:39 Pre procedure: right dorsailis pedis pulse 2+ Normal; easily identifiable; not easily obliterated 16:23:03 Patient pain scale 0/10 ?. 16:23:08 IV patent on arrival in right antecubital with 0.9% NaCl at [facility]. 16:23:11 Right groin area was prepped with chlora-prep and draped in sterile fashion 16:23:12 Alarms reviewed by R. N. 16:23:12 Sharps counted by scrub and verified by R.N. 16:23:14 Use device set Femoral Dx 16:23:15 ACIST Syringe (45887) opened to sterile field. 16:23:15 Bag Decanter (2002S) opened to sterile field. 16:23:16 Medline Cath Pack ([id number]) opened to sterile field. 16:23:17 ACIST Hand Control (87857) opened to sterile field. 16:23:17 ACIST Manifold (18940) opened to sterile field. 16:23:18 Tegaderm 4 x 4 (1626W) opened to sterile field. 16:23:19 EMERALD Guide Wire (833-824) opened to sterile field. 16:23:20 SHEATH 5FR Overton (IDG214) opened to sterile field. 16:23:21 DIAGNOSTIC Multipack 5Fr catheter set (LO6796) opened to sterile field. 16:23:30 0.9% NaCl 100 ml/hr I.V. was administered by Ruiz Espinoza RN; Per physician; 16:23:40 Oxygen 2 l/min etCO2 Nasal cannula was administered by Ruiz Espinoza RN; for low 02 sats; 16:23:57 Heparin Flush Bag (1000units/500ml NS) 2 bags added to field was administered by Ruiz Espinoza RN; used for procedure; 16:24:08 Lidocaine 2% 20ml vial added to field was administered by Ruiz Espinoza RN; for local anesthetic; 16:36:27 Physician arrived 16:36:27 --------ALL STOP TIME OUT------ 16:36:28 Final Timeout: patient, procedure, and site verified with staff and physician. All members of the team are in agreement. 16:36:29 Right groin site verified by team. 16:36:32 Fire Safety Assessment: A--An alcohol-based skin anteseptic being used preoperatively., C--Open oxygen or nitrous oxide is being used., D--An ESU, laser, or fiber-optic light is being used. 16:36:35 Physical assessment completed. ASA score P 2 - A patient with mild systemic disease as per Mark Anderson MD. 16:36:46 3b) 30-44 Moderately reduced kidney function. 16:36:49 Maximum allowable contrast dose (3.7 X eGFR X 0.75)122 ml. 16:36:52 Sedation plan: IV Moderate Sedation Medication:Versed, Fentanyl 16:37:16 Zero performed for pressure channel P1 16:37:54 Versed 2 mg I.V. was administered by Ruiz Espinoza RN; for sedation; 16:38:03 Fentanyl 100 mcg I.V. was administered by Ruiz Espinoza RN; for sedation; 16:41:30 Procedure started. 16:41:36 Local anesthetic to right femoral vein with Lidocaine 2% by Mark Anderson MD.INITIAL ACCESS ONLY 16:42:12 SHEATH 7FR Overton (PZR447) opened to sterile field. 16:42:24 Fentanyl 50 mcg I.V. was administered by Ruiz Espinoza RN; for sedation; 16:42:28 A 7 Fr Short sheath was inserted into the Right Femoral vein 16:42:48 A 5 Fr sheath was inserted into the Right Femoral artery 16:44:10 Versed 1 mg I.V. was administered by Ruiz Espinoza RN; for sedation; 16:47:22 A SWAN 7Fr Thermodilution cather (131F7P) was advanced over the wire and used for Procedure. 16:51:32 A MULTIPACK Pigtail 5 Fr catheter was advanced over the wire and used for Procedure. 16:51:47 LV gram done using BOSWELL 16:51:50 Injector settings: Ml/sec: 10, Volume: 20, 16:52:28 EF : 60 % 16:52:30 Catheter exchanged over wire. 16:52:38 A MULTIPACK JL 4.0 5Fr catheter was advanced over the wire and used for Procedure. 16:53:27 LCA angiography performed. 16:54:03 Catheter exchanged over wire. 16:54:20 A MULTIPACK 3DRC 5Fr catheter was advanced over the wire and used for Procedure. 16:54:58 Adenosine IV 3mg/ml 50 mcg/kg/min I.V. was administered by Ruiz Espinoza RN; per drug protocol; 16:55:01 RCA angiography performed. 16:55:03 Catheter removed. 16:56:16 Timer 1 started at 4:54 PM, stopped at 4:56 PM, duration 00:02:09 sec. 16:56:38 Adenosine IV 3mg/ml 100 mcg/kg/min I.V. was administered by Ruiz Espinoza RN; per drug protocol; 16:58:47 Catheter removed. 16:58:57 EXOSEAL 5Fr (EX500) opened to sterile field. 16:58:57 EXOSEAL 7Fr (EX700) opened to sterile field. 16:59:09 Sheath removed intact; hemostasis achieved with Exoseal to the Right Femoral vein. 17:01:10 Adenosine IV 3mg/ml 100 mcg/kg/min I.V.(turned off) was administered by Ruiz Espinoza RN; per drug protocol; 17:01:39 Sheath removed intact; hemostasis achieved with Exoseal to the Right Femoral artery. 17:01:45 Procedure ended.(Physican Out) 17:01:51 Timer 1 started at 4:56 PM, stopped at 5:01 PM, duration 00:05:32 sec. 17:01:55 Fluoroscopy time 02.10 minutes. 17::58 Fluoroscopy dose: 402 mGy 17:01:58 Flurop Dose total: 402 17:02:05 Dose Area Product 64895 mGy/cm. 17:02:09 Contrast amount:Isovue 300 48ml. 17:02:11 Maximum allowable dose exceeded? No. 17:02:12 Sharps counted by scrub and verified by R.N. 17:02:13 Insertion/operative site no bleeding no hematoma. 17:02:16 Post-op/insertion site Right Femoral artery dressed using a 4 x 4 and Tegaderm. 17:02:19 Post-op/insertion site Right Femoral vein dressed using a 4 x 4 and Tegaderm. 17:02:22 Post right femoral artery:stable, soft, clean and dry 17:02:29 Post right femoral vein:stable, soft, clean and dry 17:02:30 Post Procedure Pulses reassessed and unchanged 17:02:32 Post-procedure physical assessment completed. ASA score P 2 - A patient with mild systemic disease as per Mark Anderson MD. 17:02:36 Post procedure rhythm: unchanged. 17:02:38 Estimated blood loss: 5 ml 17:02:40 Post procedure instruction explained to patient.Patient verbalizes understanding. 17:02:40 Patient needs reinforcement of post procedure teaching. 17:03:02 Procedure and supply charges have been captured, reviewed, submitted and are correct. 17:03:03 Procedure Complication : No complications 17:03:06 Vital chart was stopped 17:03:06 See physician's report for complete and final results. 17:03:08 Report given to PCU. 17:03:09 Patient transfered to PCU with Stretcher. 17:03:13 Procedure ended. 17:03:13 Full Disclosure recording stopped 17:03:20 End room use (Document Last) Device Usage Item Name Manufacture Quantity Catalog Hospital Part Current Minima l Lot# / Number Charge Number Stock Stock Serial# Code ACIST Syringe Acist 1 [id number] 033668 554912 194886 20 (75677) Medical Systems Inc Bag Decanter Microtek 1 2001S 666654 64912 106205 5 (2001S) Medical Inc. Medline Cath Medline 1 [id number] 527559 65074 667117 5 Pack ([id number]) ACIST Hand Acist 1 80584 883528 731317 435138 5 Control Medical (65465) Systems Inc ACIST Manifold Acist 1 01356 694129 101849 853308 5 (13941) Medical Systems Inc Tegaderm 4 x 4 3M 1 1626W 772426 458909 006199 5 (1626W) EMERALD Guide Cardinal 1 502-455 499526 849477 397057 5 Wire (502-455) Health SHEATH 5FR Terumo 1 LHY671 270418 336321 871029 5 Overton (QMN263) DIAGNOSTIC Cardinal 1 AI4194 295036 59188 967824 30 Multipack 5Fr Health catheter set (KY4770) SHEATH 7FR Terumo 1 FXW212 933382 649586 904103 5 Overton (GYC167) SWAN 7Fr Mayorga 1 131F7P 599157 52046 616700 3 Thermodilution Lifesciences cather (131F7P) MULTIPACK Cardinal 1 772717 5 Pigtail 5 Fr Health catheter MULTIPACK JL Cardinal 1 [id number] 5 4.0 5Fr Health catheter MULTIPACK 3DRC Cardinal 1 855822 5 5Fr catheter Health EXOSEAL 5Fr Cardinal 1 EX500 417976 220210 310327 10 (EX500) Health EXOSEAL 7Fr Cardinal 1 EX700 486835 661273 947158 5 (EX700) Health Signature Audit [place] Stage Time Signature Unsigned Intra-Procedure 04/21/2019 Andrew Kelly 5:04:51 PM RT(R) Signatures Performing Physician : Signature : Mark Anderson MD Date : Time : Monitor : Andrew Mendoza RT Signature : Date : Time : Nurse : Ruiz Lorigan Signature : RN Date : Time : [address] [place] [address]
[~2019-04-18 16:24] MED LIST changes: -LANTUS INSULIN10 ML SC
[2019-04-18 16:36] VITALS: BP 146/48
[2019-04-18 16:55] LABS: BASOPHILS 0.1 % (0-2); EOSINOPHILS 2.6 % (0-7); HEMATOCRIT 32.2 % (36.0-48.0); HEMOGLOBIN 10.6 g/dL (12-16); IMMATURE GRANULOCYTES 0.3 % (0-5); LYMPHOCYTES 16.4 % (15-50); MCH 30.1 pg (26.0-34.0); MCHC 32.9 g/dL (31.0-37.0); MCV 91.5 fL (80.0-100.0); MEAN PLATELET VOLUME 12.2 fL (7.4-10.4); MONOCYTES 6.9 % (2-11); NEUTROPHILS 73.7 % (40-80); PLATELET COUNT 170 10x3/uL (130-400); RBC 3.52 10x6/uL (4.00-5.40); RDW 14.3 % (11.5-14.5); WBC 7.6 10x3/uL (4.8-10.8)
--- NOTE | 2019-04-18 16:57 | NUR ---
PT BLOOD DRAWN FROM IV AND SENT TO LAB WITH GEOSCIENCE TECHNICIAN.
--- NOTE | 2019-04-18 16:58 | NUR ---
DR. MENA NOTIFIED AND REVIEWED PT'S BEHAVIOR AND ASSESSMENT RESULTS. PT IS A LOW RISK PER DR. MENA. DR. MENA STATED TO GIVE RESOURCES TO PT AT TIME OF DISCHARGE. NO FURTHER ORDERS AT THIS TIME. RESOURCES REVIEWED WITH PT AND SHE VERBALIZED UNDERSTANDING.
[2019-04-18 17:09] LABS: APTT 29.1 SECONDS (22.8-39.4); INR 1.19 (0.85-1.17); PROTIME 14.6 SECONDS (11.6-15.0)
[2019-04-18 17:15] LABS: ALBUMIN 3.3 g/dL (3.4-5.0); ALKALINE PHOSPHATASE 97 U/L (46-116); ALT (SGPT) 18 U/L (10-68); BILIRUBIN - TOTAL 0.57 mg/dL (0.2-1.3); CALC OSMOLALITY 286 mosm/kg (275-300); CALCIUM 8.1 mg/dL (8.5-10.1); CARBON DIOXIDE 28.4 mmol/L (21.0-32.0); CHLORIDE - SERUM 104 mmol/L (98-107); CREATININE - SERUM 1.2 mg/dL (0.6-1.3); GLUCOSE 195 mg/dL (74-106); POTASSIUM - SERUM 4.3 mmol/L (3.5-5.1); PROTEIN - SERUM 6.8 g/dL (6.4-8.2); SODIUM 140 mmol/L (136-145); UREA NITROGEN 20 mg/dL (7-18); eGFR NON AFRICAN AMERICAN 48 mL/min (90-120)
[2019-04-18 17:27] LABS: CKMB 0.4 U/L (0.0-3.6); CREATINE KINASE 62 UL (21-215); MAGNESIUM - SERUM 2.6 mg/dL (1.8-2.4)
[2019-04-18 17:29] LABS: TROPONIN-I < 0.017 ng/mL (0.000-0.060)
[2019-04-18 20:13] LABS: CKMB 0.3 U/L (0.0-3.6); CREATINE KINASE 44 UL (21-215)
[2019-04-18 20:15] LABS: TROPONIN-I < 0.017 ng/mL (0.000-0.060)
--- NOTE | 2019-04-18 20:58 | NUR ---
PT LAYING IN BED. NO DISTRESS NOTED AT THIS TIME. RESPIRATIONS ARE EVEN AND UNLABORED. VSS. FAMILY AT BEDSIDE. COLOR WNL FOR RACE. SKIN IS WARM PINK AND DRY. WILL CONTINUE TO MONITOR.
--- NOTE | 2019-04-18 20:58 | NUR ---
ADDITIONAL IV STARTED IN RIGHT AC FOR CTA
--- NOTE | 2019-04-18 21:41 | NUR ---
PT TRANSPORTED TO RADIOLOGY AT THIS TIME VIA STRETCHER. NO DISTRESS NOTED
--- NOTE | 2019-04-18 22:22 | NUR ---
PT RETURNED FROM RAD SCAN. PT ATTEMPTED TO AMBULATED TO RESTROOM AND BECAME SOB. PT RETURNED TO ED ROOM. PT O2 SAT IS 94% ON RA. PLACED PATIENT BACK ON NC 2L AND PT O2 SATURATION INCREASED TO 97% UPON ADMINISTRATION OF 02. PT VSS. NO DISTRESS NOTED. COLOR WNL FOR RACTE AT THIS TIME. WILL CONTINUE TO MONITOR.
[2019-04-18 22:24] VITALS: BP 115/86
--- NOTE | 2019-04-18 23:15 | NUR ---
ADMIT TO ROOM 2122 FROM ER. ALERT/ORIENTED AND CAN ONLY AMBULATE WITH ASSISTANCE D/T SOB. O2 @ 2L/NC. HAS CPAP FOR SLEEP APNEA AND DID NOT BRING HER MACHINE. WILL WEAR O2 TONIGHT. ADMISSION ASSESSMENT AND HISTORY COMPLETED. PT NOW RESTING IN BED. AT BEDSIDE.
[2019-04-18] MEDS ORDERED: NOVOLOG100 UNIT/1 SQ (23:36)
--- NOTE | 2019-04-18 23:40 | NUR ---
RECEIVED FROM ER, PT IS A&O, PLACED ON TELEMTRY, IV-20G.-R.HAND AND 20G.RAC-SL, FAMILY AT BEDSIDE, BED IS LOW, SRX2, CALL LIGHT IN REACH, WILL CONTINUE PLAN OF CARE
[2019-04-19] VITALS (10 sets, daily range): BP systolic 113–150; BP diastolic 35–68; BMI 43.5
[2019-04-19 07:02] LABS: CKMB 0.5 U/L (0.0-3.6); CREATINE KINASE 58 UL (21-215)
[2019-04-19 07:03] LABS: TROPONIN-I < 0.017 ng/mL (0.000-0.060)
--- NOTE | 2019-04-19 07:43 | NUR ---
ROUNDING DONE WITH PAIN HAVING NO NEEDS AT THIS TIME. ON HEART MONITOR SHOWING SB, HR 55. ON 3L PER NC. MORBID OBESE. RIGHT HAND AND RIGHT AC PIV BOTH SEEN WITH SALINE LOCK, ORANGE SWAB CAPS IN USE. PATIENT IS IN STREET CLOTHES, NON SKID SOCKS ON. PATIENT IS INSTRUCTED TO USE CALL LIGHT FOR ALL NEEDS SO NO FALLS. CALL LIGHT IN USE.
--- NOTE | 2019-04-19 09:17 | NUR ---
ORTHO VITAL SIGNS ORDERED: LAYING 124/43 P 57 SITTING 129/59 P 60 STANDING 150/64 P 53
--- NOTE | 2019-04-19 09:40 | NUR ---
ASSSITED PATIENT TO RESTROOM TO VOID AND HAVE SMALL BM. PATIENT STATES "I STINK". ASKED IF SHE WOULD LIKE TO WASH UP AND SHE REFUSES AT THIS TIME.
--- NOTE | 2019-04-19 11:00 | NUR ---
EKG DONE ORDERED.
[2019-04-19 12:04] LABS: CKMB 0.3 U/L (0.0-3.6); CREATINE KINASE 44 UL (21-215); TROPONIN-I < 0.017 ng/mL (0.000-0.060)
--- NOTE | 2019-04-19 12:28 | NUR ---
DR VERDUZCO IN ROOM TO SEE PATIENT.
[2019-04-19 12:42] LABS: % SATURATION 14 % (15-55); IRON 41 ug/dl (35-150); TOTAL IRON BIND CAPACITY 281 ug/dl (260-445); UNSAT IRON BIND CAPACITY 240 ug/dl (150-375)
[2019-04-19 13:08] LABS: CHOL - HDL RATIO 3.3 ratio (2.3-4.1); LDL-HDL RATIO 1.7 ratio (1.5-3.5)
--- NOTE | 2019-04-19 13:35 | NUR ---
COMPLETE BED LINEN AND BATH DONE WITH PATIENT GIVING HERSLEF A BATH.
[2019-04-19 17:35] LABS: CKMB 0.4 U/L (0.0-3.6); CREATINE KINASE 48 UL (21-215)
[2019-04-19 17:38] LABS: TROPONIN-I < 0.017 ng/mL (0.000-0.060)
--- NOTE | 2019-04-19 18:26 | NUR ---
PATIENT IS MADE NPO PAST MIDNIGHT FOR STRESS TEST IN AM.
--- NOTE | 2019-04-19 20:07 | NUR ---
RECIEVED UP IN BED WITH EYES OPEN AND TV ON. ALERT AND ORIENTED X4. UP WITH ASSIST. TELEMETRY IN PLACE. IV TO RIGHT AC AND RIGHT HAND SL..DENIES ANY PAIN OR NEEDS . WILL CONT POC.
[2019-04-20] VITALS (8 sets, daily range): BP systolic 103–117; BP diastolic 32–58; Ht 149.9 cm; Wt 97.5 kg
--- NOTE | 2019-04-20 00:58 | NUR ---
ORTHOSTATIC B/P LYING 112/39 SITTING 108/39 STANDING 108/41
[2019-04-20 05:51] LABS: ALBUMIN 3.3 g/dL (3.4-5.0); ANION GAP 11.6 mmol/L (8-16); BILIRUBIN - TOTAL 0.88 mg/dL (0.2-1.3); CALCIUM 8.3 mg/dL (8.5-10.1); CARBON DIOXIDE 29.1 mmol/L (21.0-32.0); CREATININE - SERUM 1.1 mg/dL (0.6-1.3); MAGNESIUM - SERUM 2.4 mg/dL (1.8-2.4); POTASSIUM - SERUM 3.7 mmol/L (3.5-5.1); PROTEIN - SERUM 6.7 g/dL (6.4-8.2)
[2019-04-20 07:28] LABS: HEMATOCRIT 30.2 % (36.0-48.0); HEMOGLOBIN 9.7 g/dL (12-16); MCH 29.6 pg (26.0-34.0); MCHC 32.1 g/dL (31.0-37.0); MCV 92.1 fL (80.0-100.0); MEAN PLATELET VOLUME 13.1 fL (7.4-10.4); PLATELET COUNT 162 10x3/uL (130-400); RBC 3.28 10x6/uL (4.00-5.40); RDW 14.2 % (11.5-14.5); WBC 9.2 10x3/uL (4.8-10.8)
--- NOTE | 2019-04-20 07:30 | NUR ---
ASSESSMENT COMPLETED. ALERT AND ORIENTED. TELEMERTY SHOWS SB 54. RIFHT HAND AND AC SL. DENIES ANY NEEDS. NPO FOR STRESS TEST. WILL MONITOR
[2019-04-20 08:54] LABS: HYPOCHROMASIA OCC; LYMPHOCYTES 13 % (15-50); MONOCYTES 11 % (2-11); NEUTROPHILS 75 % (40-80); PLATELET ESTIMATE NORMAL; ROULEAUX OCC
--- NOTE | 2019-04-20 09:53 | CN ---
PATIENT NAME:NGA LEWIS MEDICAL RECORD: [id number] : 55 LOCATION:D. D.2123 ADMIT DATE: 04/19/19 ACCOUNT: [id number] CONSULTING PHYSICIAN: DARY VERDUZCO MD REFERRING PHYSICIAN: NORMA ROBERTS MD DATE OF CONSULTATION: 04/19/2019 ADMITTING DIAGNOSES: 1. Chest pain. 2. Shortness of breath. 3. Cirrhosis. 4. Ascites. 5. Hypertension. 6. Hyperlipidemia. 7. Insulin-dependent diabetes. HISTORY OF PRESENT ILLNESS: Mrs. Lewis has multiple cardiac risk factors as listed above. She has been having chest pain and shortness of breath. The chest pain is very compatible with angina. It is a heavy dull aching sensation across the anterior chest associated with shortness of breath, dyspnea on exertion. She has not had a previous cardiac workup. Her EKG is with overall normal. Troponins are normal. PHYSICAL EXAMINATION: GENERAL APPEARANCE: Well-nourished, well-developed, appears stated age. Level of distress, comfortable. PSYCHIATRIC: Mental status, alert, normal affect. Orientation, oriented to time, place and person. EYES: Lids and conjunctiva, noninjected. No discharge, no pallor. ENT: Lips, teeth, gums, normal dentition. Oropharynx, no cyanosis, no pallor. NECK: Carotid arteries, bilateral normal upstroke, no bruits, no thrills. JUGULAR VEINS: No jugular venous pressure or distention. CERVICAL LYMPH NODES: Nontender, nonenlarged. THYROID: Not enlarged. Nontender. No nodules. LUNGS: Respiratory effort, unlabored. CHEST: Normal curvature. No thoracic deformity. No chest wall tenderness. Percussion, resonant. Auscultation, clear. No wheezes, no rales, no rhonchi. CARDIOVASCULAR: Precordial exam, nondisplaced. No heaves or pericardial thrills. Rate and rhythm, regular. Heart sounds, normal S1, normal S2. No S3, no gallop, no rub. Systolic murmur, not heard. Diastolic murmur, not heard. EXTREMITIES: No cyanosis, no edema. Peripheral pulses, full and equal in all extremities, except as noted. No bruits appreciated. ABDOMEN: Soft, nondistended. Normal aorta. No bruit. Nontender. No masses. Liver, nontender, no hepatomegaly. Spleen, nontender, no splenomegaly. MUSCULOSKELETAL: No joint tenderness. No joint swelling. No erythema. NEUROLOGICAL: Normal gait, normal strength, normal tone. SKIN: Warm and dry. OVERALL IMPRESSION: Chest pain compatible with angina. We will risk stratify with stress testing and Cardiolite imaging. Further care depends upon the findings of the stress test. TRANSINT:[id number] Voice Confirmation ID: [id number] DOCUMENT ID: [id number] CONSULT REPORT [id number] NGA LEWIS JEFFREY MD at 0953 CC: [id number] DICTATION DATE: 04/19/19 1230 TREE SURGEON: 04/19/19 1241 ADM IN [place] [id number] [place] [address]
--- NOTE | 2019-04-20 09:53 | EC ---
PATIENT:NGA LEWIS DATE OF SERVICE: 04/19/19 SEX: F MEDICAL RECORD: [id number] DATE OF : 55 LOCATION:D.M2 D.212 AGE OF PATIENT: 63 ADMISSION DATE: 04/19/19 REFERRING PHYSICIAN: INTERPRETING PHYSICIAN: DARY ANDERSON MD ECHOCARDIOGRAM REPORT ECHO CHARGES 4 ECHO COMPLETE Date: 04/19/19 CLINICAL DIAGNOSIS: SOB ECHOCARDIOGRAPHIC MEASUREMENTS (adult normal given) AC root (d.<3.7cm) 2.2 cm LV Septum d (<1.2 cm> 0.7 cm Valve Excursion 1.3 cm LV Septum (systole) 1.0 cm Left Atria (s.<4.0cm> 4.5 cm LVPW d(<1.2cm) 0.8 cm RV (d.<2.3cm) 3.5 cm LVPW (sytole) 1.3 cm LV diastole(<5.6CM) 5.9 cm MV E-F(>70mm/sec) cm LV systole 4.1 cm LVOT Diameter 2.0 cm MV exc.(>10mm) cm Est.ejection fraction (50-75%) % DOPPLER: LVIT cm/sec A 65 cm/sec E 140 cm/sec LA cm/sec RVSP 75.6 mmHg LVOT 124 cm/sec AOP1/2T m/s Asc. Ao 272 cm/sec RVOT 58 cm/sec RA cm/sec PA 124 cm/sec AV Gradient Peak 29.6 mmHg AV Mean 11.3 mmHg AV Area 1.9 cm MV Gradient Peak 16.7 mmHg MV Mean 4.2 mmHg MV Area cm COMMENTS: Customer Quality Engineer: Feng DOUGLASS Decision Unit Rn: 1 Dr. Anderson TAPE# PACS Pericardial Effusion N DATE OF SERVICE: 04/19/2019 ECHOCARDIOGRAM FINDINGS: 1. Left ventricular chamber size is within normal limits. Left ventricular systolic function is normal. Overall ejection fraction estimated at 60%. 2. Left atrium is enlarged at 4.5 cm. Right atrium and right ventricle chamber sizes are as well mildly dilated. 3. Valvular structures have normal structure and motion. ECHOCARDIOGRAM REPORT [id number] NGA LEWIS 4. Doppler interrogation reveals mild mitral regurgitation, moderate tricuspid regurgitation, no other valvular insufficiency or stenosis; however, pulmonary systolic pressure is significantly elevated estimated 76 mmHg. 5. No evidence of pericardial effusion or left ventricular thrombus. TRANSINT:[id number] Voice Confirmation ID: [id number] DOCUMENT ID: [id number] DARY ANDERSON MD at 0953 CC: [id number] DICTATION DATE: 04/19/19 170 GIN OPERATOR: 04/19/[address] [facility] [address] [id number]
--- NOTE | 2019-04-20 15:50 | NUR ---
OT NOTE: PT UP IN CHAIR. PT COMPLETED ADL MOB WITH SPV/MOD I. PT EXHIBITS DECREASED ACTIVITY TOLERANCE AND FATIGUES . PT COMPLETED GROOMING TASKS WITH SPV. PT STATED SHE HAD RENEWED MOTIVATION. THANK YOU, YOLI FISH
--- NOTE | 2019-04-20 18:48 | NUR ---
LYING QUIETLY NO NEEDS VOICED
--- NOTE | 2019-04-20 20:10 | NUR ---
RECIEVED UP AMBULATING AROUND ROOM. ALERT AND ORIENTED X4. IV TO RIGHT AC WITH FERRICITIN INFUSING AT 100CC/HR. TELEMETRY IN PLACE. REQUSESTED A SANDWICH. SANDWICH BOX GIVEN. EDUCATED ON NPO STATUS. DENIES ANY OTHER NEEDS AT THIS TIME.
--- NOTE | 2019-04-20 20:13 | NUR ---
ORTHOSTATIC B/P SITTING 103/58,HR 65 STANDING 130/55, HR 66 LYING 116/46, HR 67
[2019-04-21 01:05] VITALS: BP 107/69
[2019-04-21 05:36] VITALS: BP 114/67
[2019-04-21 07:03] LABS: ALBUMIN 3.2 g/dL (3.4-5.0); ANION GAP 14.6 mmol/L (8-16); BASOPHILS 0.1 % (0-2); BILIRUBIN - TOTAL 0.67 mg/dL (0.2-1.3); CALCIUM 7.9 mg/dL (8.5-10.1); CARBON DIOXIDE 26.3 mmol/L (21.0-32.0); CREATININE - SERUM 1.3 mg/dL (0.6-1.3); EOSINOPHILS 2.9 % (0-7); HEMATOCRIT 30.2 % (36.0-48.0); HEMOGLOBIN 9.8 g/dL (12-16); IMMATURE GRANULOCYTES 0.3 % (0-5); LYMPHOCYTES 15.2 % (15-50); MAGNESIUM - SERUM 2.4 mg/dL (1.8-2.4); MCH 29.6 pg (26.0-34.0); MCHC 32.5 g/dL (31.0-37.0); MCV 91.2 fL (80.0-100.0); MEAN PLATELET VOLUME 11.9 fL (7.4-10.4); MONOCYTES 7.9 % (2-11); NEUTROPHILS 73.6 % (40-80); PHOSPHOROUS 3.8 mg/dL (2.5-4.9); PLATELET COUNT 164 10x3/uL (130-400); POTASSIUM - SERUM 3.9 mmol/L (3.5-5.1); PROTEIN - SERUM 6.7 g/dL (6.4-8.2); RBC 3.31 10x6/uL (4.00-5.40); WBC 7.2 10x3/uL (4.8-10.8)
--- NOTE | 2019-04-21 07:42 | NUR ---
ASSESSMENT DONE. DENIES NEEDS
[2019-04-21 08:32] VITALS: BP 131/41
--- NOTE | 2019-04-21 09:59 | NUR ---
I have reviewed this patient and I concur with the Shift Assessment completed by the Licensed Practical Nurse today this shift.
--- NOTE | 2019-04-21 16:05 | NUR ---
TO TRAINING PROGRAM MANAGER PER BED
[2019-04-21 16:14] VITALS: BP 99/40
--- NOTE | 2019-04-21 17:20 | NUR ---
RECIVED FROM HVAC R TECH PER BED. RT SKY MENDOZA C/D/I, PULSE PALP
--- NOTE | 2019-04-21 18:27 | NUR ---
FAMILY AT SIDE. WITHOUT DISTRESS NOTED
[2019-04-21 20:00] VITALS: BP 118/40; BP 123/97
[2019-04-22] VITALS (8 sets, daily range): BP systolic 103–147; BP diastolic 40–56
--- NOTE | 2019-04-22 02:37 | NUR ---
RESTING WITH EYES CLOSED, RESPERATIONS EVEN, NO S/S DISTRESS NOTED.
[2019-04-22 04:41] LABS: BASOPHILS 0.5 % (0-2); EOSINOPHILS 1.2 % (0-7); IMMATURE GRANULOCYTES 0.1 % (0-5); LYMPHOCYTES 36.8 % (15-50); MCH 30.8 pg (26.0-34.0); MCHC 33.3 g/dL (31.0-37.0); MCV 92.5 fL (80.0-100.0); MEAN PLATELET VOLUME 10.9 fL (7.4-10.4); MONOCYTES 7.8 % (2-11); NEUTROPHILS 53.6 % (40-80); RDW 13.3 % (11.5-14.5); WBC 8.3 10x3/uL (4.8-10.8)
[2019-04-22 04:44] LABS: HEMATOCRIT 36.9 % (36.0-48.0); HEMOGLOBIN 12.3 g/dL (12-16); PLATELET COUNT 267 10x3/uL (130-400); RBC 3.99 10x6/uL (4.00-5.40)
[2019-04-22 05:00] LABS: ALBUMIN 3.1 g/dL (3.4-5.0); ANION GAP 11.2 mmol/L (8-16); BILIRUBIN - TOTAL 0.52 mg/dL (0.2-1.3); CALCIUM 8.1 mg/dL (8.5-10.1); CREATININE - SERUM 1.3 mg/dL (0.6-1.3); MAGNESIUM - SERUM 2.6 mg/dL (1.8-2.4); PHOSPHOROUS 3.4 mg/dL (2.5-4.9); POTASSIUM - SERUM 4.2 mmol/L (3.5-5.1); PROTEIN - SERUM 6.4 g/dL (6.4-8.2)
--- NOTE | 2019-04-22 07:23 | NUR ---
REPORT RECEIVED. WILL CONTINUE WITH POC. PT CURRENTLY LYING LYING SEMI FOWLERS. CALL LIGHT W/I REACH. PT IS CURRENTLY UNDERGOING RESP TRX. RR EVEN AND UNLABORED. NS INFUSING @50ML/HR VIA R.AC PIV. NO S/S OF DISTRESS NOTED. PT DENIES ANY NEEDS AT THIS TIME. WILL CTM.
--- NOTE | 2019-04-22 09:53 | NUR ---
I have reviewed this patient and I concur with the Shift Assessment completed by the Licensed Practical Nurse today this shift.
--- NOTE | 2019-04-22 11:45 | MORECARE ---
CASE MANAGEMENT DISCHARGE SUMMARY PATIENT: NGA LEWIS UNIT: [id number] ADM DATE: 04/19/19 AGE: 63 : 55 SEX: F ROOM/BED: D.2123 AUTHOR: TANYA STONE PHYSICIAN: REFERRING PHYSICIAN: NOMRA ROBERTS MD DATE OF SERVICE: 04/22/19 Discharge Plan Patient Name: NGA LEWIS Facility: [facility]:[place] : 1955 Planned Disposition: Home Anticipated Discharge Date: Discharge Date: Expected LOS: Initial Reviewer: [email or web address] Initial Review Date: 04/18/2019 Generated: 04/22/19 12:45 pm Patient Name: NGA LEWIS Page 95353 at 1145 All edits/amendments must be made on the electronic document DICTATION DATE: 04/22/19 1145 DESIGNER: KOURTNEY 04/22/19 1145 RPT#: [id number] DC DATE: STATUS: ADM IN [facility] [address] [place] [address] END OF REPORT
--- NOTE | 2019-04-22 11:55 | MORECARE ---
CASE MANAGEMENT DISCHARGE SUMMARY PATIENT: NGA LEWIS UNIT: [id number] ADM DATE: 04/19/19 AGE: 63 : 55 SEX: F ROOM/BED: D.7653 AUTHOR: BERTHA,DOC PHYSICIAN: REFERRING PHYSICIAN: NORMA ROBERTS MD DATE OF SERVICE: 04/22/19 Discharge Plan Patient Name: NGA LEWIS Facility: [facility]:[place] : 1955 Planned Disposition: Home Anticipated Discharge Date: Discharge Date: Expected LOS: Initial Reviewer: [email or web address] Initial Review Date: 04/18/2019 Generated: 04/22/19 12:54 pm Comments DCP- Discharge Planning Updated by [email or web address]: Rory Gusman on 04/22/19 10:[address] Patient Name: NGA LEWIS Admission Status: ER Accout number: [id number] Admission Date: 04-19-2019 : 1955 Admission Diagnosis: Attending: NORMA ROBERTS Current LOS: 3 Anticipated DC Date: Planned Disposition: Home Primary Insurance: [employer] INS EXCHANGE Discharge Planning Comments: CM MET WITH PT IN ROOM TO DISCUSS DISCHARGE PLANNING AND NEEDS. PT REPORTS LIVING AT HOME INDEPENDENTLY FOR MOST OF THE TIME, WITH SPOUSE. PT REPORTS SOMETIMES SHE NEEDS HELP WITH BATHING AND HER ASSISTS WHEN NEEDED. PT HAS BEDSIDE COMMODE, CPAP, GLUCOMETER, WALKER AND WHEELCHAIR FROM [facility]. PT HAS NO OUTSIDE SERVICES ASSISTING IN THE HOME. CM DISCUSSED AVAILABILITY OF HOME HEALTH, REHAB SERVICES AND MEDICAL EQUIPMENT. PT DENIES DISCHARGE NEEDS, REPORTS HER SPOUSE WILL PICK HER UP FOR DISCHARGE HOME. PT PLANS TO DISCHARGE HOME, HAS NO ANTICIPATED DISCHARGE NEEDS AT THIS TIME. SPOUSE TO TRANSPORT HOME AT DISCHARGE. CM TO FOLLOW AND ASSIST IF NEEDED. Net Developer With [employer]: Rory Gusman DCPIA - Discharge Planning Initial Assessment Updated by [email or web address]: Rory Gusman on 04/22/19 11:51 am * Is the patient Alert and Oriented? Yes * How many steps to enter\exit or inside your home? NONE * PCP DR. JUAN LONG, [facility] * Pharmacy [facility] * Preadmission Environment Home with Family * ADLs Partial Dependent * Partial ADLs (Assistance needed) Bathing * Equipment Bedside Commode CPAP Glucometer Walker Wheelchair * Other Equipment [employer] - MEDICAL EQUIPMENT PROVIDER PREFERENCE * List name and contact numbers for known caregivers / representatives who currently or will assist patient after discharge: COLIN MORALES, SPOUSE, FAVIOLA MONREAL, DTR, * Verbal permission to speak to the caregivers and representatives has been obtained from the patient. N/A * Community resources currently utilized None * Please name any agencies selected above. NONE * Additional services required to return to the preadmission environment? No * Can the patient safely return to the preadmission environment? Yes * Has this patient been hospitalized within the prior 30 days at any hospital? No Last DP export: 04/22/19 10:45 am Patient Name: NGA LEWIS Page 12052 at 1155 All edits/amendments must be made on the electronic document DICTATION DATE: 04/22/19 115 ANIMAL REHABILITATOR: KOURTNEY 04/22/19 1154 RPT#: [id number] DC DATE: STATUS: ADM IN [facility] [address] [place] [address] END OF REPORT
--- NOTE | 2019-04-22 13:39 | NUR ---
Nutrition Follow-up: Pt reports good appetite/PO intake. States that she has become increasingly hungry. Diet: AHA ADA PO intake: 100% Last BM: 04/22 Wt: 215# Labs noted: Glu 338, Alb 3.1 Meds noted: Miralax, KDur, Humalog, Lasix, Protonix, Albuterol Rec continue current diet as tolerated. [place] food preferences within diet restrictions. RD following.
--- NOTE | 2019-04-22 15:37 | NUR ---
PT CURRENTLY UP AND WALKING THE HALLS. PT DENIES ANY NEEDS. RR EVEN AND UNLABORED ON RA. NO S/S OF DISTRESS NOTED. WILL CTM.
--- NOTE | 2019-04-22 16:10 | NUR ---
TELEMETRY REMOVED FOR SHOWER. PT STATES SHE IS NOT GOING TO WEAR IT BECAUSE IT BREAKS HER OUT.
--- NOTE | 2019-04-22 19:52 | NUR ---
REPORT RECEIVED, WILL CONTINUE WITH POC. PATIENT IS A&O, UP AD PJ. PATIENT IS SITTING ON SIDE OF BED, FAMILY AT BEDSIDE. NO S/SX OF DISTRESS NOTED, RR EVEN AND UNLABORED. PATIENT C/O ITCHING WHERE TELEMETRY STICKERS WERE, SHE'S REFUSED TELEMETRY. PATIENT DOES NOT HAVE IV ACCESS, NO IV MEDS ORDERED FOR TONIGHT. PATIENT ALSO WONDERING ABOUT HER TOILET IN HER ROOM BEING FIXED, IT'S LEAKING AND NOT FLUSHING PROPERLY. PATIENT DENIES FURTHER NEEDS AT THIS TIME. CL IN REACH, BED LOCKED AND LOWERED, WILL CTM.
[2019-04-23] VITALS: BP 147/46
[2019-04-23 04:30] VITALS: BP 117/92
--- NOTE | 2019-04-23 05:58 | NUR ---
PATIENT IS REQUESTING LANTUS INSTEAD OF HUMALOG. ADVISED PATIENT TO ASK THE DOCTOR OR MEDICAL RECORD RETRIEVAL SPECIALIST THIS AM WHEN HE ROUNDS. PATIENT DENIES FURHTER NEEDS, CL IN REACH, BED LOCKED AND LOWERED. WILL CTM.
[2019-04-23 06:12] LABS: BASOPHILS 0.1 % (0-2); EOSINOPHILS 3.7 % (0-7); IMMATURE GRANULOCYTES 0.4 % (0-5); LYMPHOCYTES 16.2 % (15-50); MCH 29.7 pg (26.0-34.0); MCHC 32.3 g/dL (31.0-37.0); MCV 91.9 fL (80.0-100.0); MEAN PLATELET VOLUME 12.4 fL (7.4-10.4); MONOCYTES 8.8 % (2-11); NEUTROPHILS 70.8 % (40-80); RDW 13.8 % (11.5-14.5); WBC 6.7 10x3/uL (4.8-10.8)
[2019-04-23 06:28] LABS: ALBUMIN 3.3 g/dL (3.4-5.0); ANION GAP 13.2 mmol/L (8-16); BILIRUBIN - TOTAL 0.7 mg/dL (0.2-1.3); CALCIUM 8.5 mg/dL (8.5-10.1); CARBON DIOXIDE 26.3 mmol/L (21.0-32.0); CREATININE - SERUM 1.1 mg/dL (0.6-1.3); MAGNESIUM - SERUM 2.4 mg/dL (1.8-2.4); PHOSPHOROUS 3.1 mg/dL (2.5-4.9); POTASSIUM - SERUM 4.5 mmol/L (3.5-5.1); PROTEIN - SERUM 6.6 g/dL (6.4-8.2)
[2019-04-23 07:00] LABS: HEMATOCRIT 29.4 % (36.0-48.0); HEMOGLOBIN 9.5 g/dL (12-16); PLATELET COUNT 142 10x3/uL (130-400)
--- NOTE | 2019-04-23 07:10 | NUR ---
ROUNDING DONE WITH PATIENT UP AT NURSE STATION GETTING SOME FRESH COFFEE. OBESE ABDOMEN. ON ROOM AIR. ON EP, K+ IS 4.5. WILL CPOC.
[2019-04-23 08:59] VITALS: BP 122/51
--- NOTE | 2019-04-23 12:38 | NUR ---
OT NOTE: PT REPORTS THAT SHE FEELS BETTER BUT HAD A BAD NIGHT LAST NIGHT. PT AMBULATING AD PJ IN ROOM; ABLE TO PERFORM TOILETING AND SINK HYGIENE WITHOUT ASSIST. EXPRESSED CONCERNS REGARDING HER BLOOD SUGARS AND FEELS MEDS ARE NOT WORKING. INSTRUCTED TO SPEAK WITH PHYSICIAN WHEN THEY MAKE ROUNDS. Loree NEWMAN TR/L
--- NOTE | 2019-04-23 13:18 | NUR ---
UP IN CHAIR PAST LUNCH AND SHOWER.
--- NOTE | 2019-04-23 15:06 | NUR ---
22 G X 1 STICK TO RIGHT THUMB PER THIS NURSE.
[2019-04-23 16:17] VITALS: BP 133/49
--- NOTE | 2019-04-23 17:47 | NUR ---
IV IRON INFUSING TO RIGHT THUMB. FAMILY AT BEDSIDE.
[2019-04-23 20:00] VITALS: BP 115/33
--- NOTE | 2019-04-23 20:17 | NUR ---
INITIAL ROUNDS COMPLETED AT 1910 HRS. PT DENIED AND DISCOMFORT. ASSESSMENT COMPLETED AT 1940 HRS. VSS. ALERT AND OREINTED TO PERSON,PLACE AND TIME. ATKINS. IV TO R THUMB SL. LUNGS ESSENTIALLY CTA. ABD SOFT WITH ACTIVE BS NOTED. PT DECLINED OFF FOR GRIPPE SOCKS. PT STATES ALL SIZES OF THEM HURT HER TOES. PT STATES SHE PUTS HER SLIPPERS ON WHEN OUT OF BED. SR UP X2, CALL LIGHT WITHIN REACH.
[2019-04-23 22:06] LABS: APPEARANCE SL CLDY (CLEAR); BILIRUBIN NEGATIVE (NEGATIVE); COLOR YELLOW (YELLOW); GLUCOSE 1000 mg/dL (NEGATIVE); KETONE NEGATIVE (NEGATIVE); NITRITE NEGATIVE (NEGATIVE); PROTEIN NEGATIVE (NEGATIVE); SPECIFIC GRAVITY 1.015 (1.005-1.020); UROBILINOGEN NORMAL (NORMAL)
[2019-04-23 22:07] LABS: BACTERIA MANY /hpf (NONE SEEN); RED CELLS - URINE OCC /hpf (0-5); WHITE CELLS - URINE 0-5 /hpf (0-5)
--- NOTE | 2019-04-23 22:39 | NUR ---
PT WATCHING TV. NO DISTRESS NOTED.
--- NOTE | 2019-04-23 22:39 | NUR ---
PT STAED SHE FEELS LIKE SHE HAS A UTI. UA SENT TO LAB.
--- NOTE | 2019-04-24 00:24 | NUR ---
PT RESTING WITH EYES CLOSED. RESP EVEN AND REGULAR. SR UP X2,CALL LIGHT WITHN REACH.
[2019-04-24 00:30] VITALS: BP 128/46
--- NOTE | 2019-04-24 01:58 | NUR ---
PT RESTING WITH EYES CLOSED. RESP EVEN AND REGULAR. SR UP X2, CALL LIGHT WITHIN REACH.
--- NOTE | 2019-04-24 04:21 | NUR ---
PT RESTING WITH EYES CLOSED. RESP EVEN AND REGULAR. SR UP X2, CALL LIGHT WIHTIN REACH AND HOME CPAP IN USE.
[2019-04-24 04:30] VITALS: BP 133/58
[2019-04-24 05:53] LABS: BASOPHILS 0.2 % (0-2); EOSINOPHILS 4.2 % (0-7); HEMATOCRIT 28.6 % (36.0-48.0); HEMOGLOBIN 9.2 g/dL (12-16); IMMATURE GRANULOCYTES 0.8 % (0-5); MCH 29.5 pg (26.0-34.0); MCHC 32.2 g/dL (31.0-37.0); MCV 91.7 fL (80.0-100.0); MEAN PLATELET VOLUME 12.2 fL (7.4-10.4); NEUTROPHILS 70.8 % (40-80); PLATELET COUNT 144 10x3/uL (130-400); RBC 3.12 10x6/uL (4.00-5.40); RDW 14.1 % (11.5-14.5); WBC 6.5 10x3/uL (4.8-10.8)
[2019-04-24 06:14] LABS: ALBUMIN 3.1 g/dL (3.4-5.0); ANION GAP 13.6 mmol/L (8-16); BILIRUBIN - TOTAL 0.5 mg/dL (0.2-1.3); CALCIUM 8.1 mg/dL (8.5-10.1); CARBON DIOXIDE 26.6 mmol/L (21.0-32.0); CREATININE - SERUM 1.2 mg/dL (0.6-1.3); MAGNESIUM - SERUM 2.3 mg/dL (1.8-2.4); PHOSPHOROUS 3.1 mg/dL (2.5-4.9); POTASSIUM - SERUM 4.2 mmol/L (3.5-5.1); PROTEIN - SERUM 6.6 g/dL (6.4-8.2)
--- NOTE | 2019-04-24 06:43 | NUR ---
VSS THROUGHOUT NIGHT. AM FSBS 410. 12 UNITS GIVEN SUB-Q TO UPPER R ARM. NEEDS MET; WILL CONTINUE TO MONITOR.
--- NOTE | 2019-04-24 08:16 | NUR ---
ASSESSMENT COMPLETED. ALERT AND ORIENTED. UP AB PJ. LUNGS CLEAR. IV TO RIGHT THUMB SL. CALL LIGHT IN REACH
[2019-04-24 08:43] VITALS: BP 92/63
--- NOTE | 2019-04-24 10:00 | NUR ---
WALKING IN HALLWAY. GAIT SLOW AND STEADY. DENIES ANY NEEDS.
[2019-04-24 12:13] VITALS: BP 110/47
--- NOTE | 2019-04-24 14:24 | NUR ---
PT DISCHARGED. INSTRUCTIONS GIVEN TO PT AND FAMILY. TO PRIVATE CAR PER WHEELCHAIR
--- NOTE | 2019-04-26 09:31 | MORECARE ---
CASE MANAGEMENT DISCHARGE SUMMARY PATIENT: NGA LEWIS UNIT: [id number] ADM DATE: 04/19/19 AGE: 63 : 55 SEX: F ROOM/BED: D.5503 AUTHOR: BERTHA,DOC PHYSICIAN: REFERRING PHYSICIAN: NORMA ROBERTS MD DATE OF SERVICE: 04/26/19 Discharge Plan Patient Name: NGA LEWIS Facility: [facility]:[place] : 1955 Planned Disposition: Home Anticipated Discharge Date: 04/24/19 Discharge Date: 04/24/2019 Expected LOS: 5 Initial Reviewer: [email or web address] Initial Review Date: 04/18/2019 Generated: 04/26/19 10:31 am Comments DCP- Discharge Planning Updated by [email or web address]: Rory Gusman on 04/22/19 10:[address] Patient Name: NGA LEWIS Admission Status: ER Accout number: [id number] Admission Date: 04-19-2019 : 1955 Admission Diagnosis: Attending: NORMA ROBERTS Current LOS: 3 Anticipated DC Date: Planned Disposition: Home Primary Insurance: [employer] INS EXCHANGE Discharge Planning Comments: CM MET WITH PT IN ROOM TO DISCUSS DISCHARGE PLANNING AND NEEDS. PT REPORTS LIVING AT HOME INDEPENDENTLY FOR MOST OF THE TIME, WITH SPOUSE. PT REPORTS SOMETIMES SHE NEEDS HELP WITH BATHING AND HER ASSISTS WHEN NEEDED. PT HAS BEDSIDE COMMODE, CPAP, GLUCOMETER, WALKER AND WHEELCHAIR FROM [facility]. PT HAS NO OUTSIDE SERVICES ASSISTING IN THE HOME. CM DISCUSSED AVAILABILITY OF HOME HEALTH, REHAB SERVICES AND MEDICAL EQUIPMENT. PT DENIES DISCHARGE NEEDS, REPORTS HER SPOUSE WILL PICK HER UP FOR DISCHARGE HOME. PT PLANS TO DISCHARGE HOME, HAS NO ANTICIPATED DISCHARGE NEEDS AT THIS TIME. SPOUSE TO TRANSPORT HOME AT DISCHARGE. CM TO FOLLOW AND ASSIST IF NEEDED. Regulatory Manager: Rory Gusman DCPIA - Discharge Planning Initial Assessment Updated by [email or web address]: Rory Gusman on 04/22/19 11:51 am * Is the patient Alert and Oriented? Yes * How many steps to enter\exit or inside your home? NONE * PCP DR. JUAN LONG, [facility] * Pharmacy [facility] * Preadmission Environment Home with Family * ADLs Partial Dependent * Partial ADLs (Assistance needed) Bathing * Equipment Bedside Commode CPAP Glucometer Walker Wheelchair * Other Equipment [employer] - MEDICAL EQUIPMENT PROVIDER PREFERENCE * List name and contact numbers for known caregivers / representatives who currently or will assist patient after discharge: COLIN MORALES, SPOUSE, FAVIOLA MONREAL, DTR, * Verbal permission to speak to the caregivers and representatives has been obtained from the patient. N/A * Community resources currently utilized None * Please name any agencies selected above. NONE * Additional services required to return to the preadmission environment? No * Can the patient safely return to the preadmission environment? Yes * Has this patient been hospitalized within the prior 30 days at any hospital? No Last DP export: 04/22/19 10:55 am Patient Name: NGA LEWIS Page 60347 at 0931 All edits/amendments must be made on the electronic document DICTATION DATE: 04/26/19930 TRAFFIC PERSONNEL SUPERVISOR: KOURTNEY 04/26/19930 RPT#: [id number] DC DATE:04/24/19 STATUS: DIS IN [facility] [address] [place] [address] END OF REPORT
== END 2019-04-24 14:28 | disposition home or self-care (01) | DRG 287 ==
LOC: D.ER 16:24 → D.M2 22:21 → OBSVTIME 22:21 → D.M2 04-19 15:23
PROVIDERS: Emergency Medicine; Family Medicine; Internal Medicine Interventional Cardiology; ADMIT Internal Medicine Nephrology; ATTEND Internal Medicine Nephrology
PROC: 4A023N8 Measurement of Cardiac Sampling and Pressure, Bilateral, Percutaneous Approach (ICD-10-PCS; 2019-04-21)
PROC: B2141ZZ Fluoroscopy of Right Heart using Low Osmolar Contrast (ICD-10-PCS; principal; 2019-04-21 10:00)
PROC: B2111ZZ Fluoroscopy of Multiple Coronary Arteries using Low Osmolar Contrast (ICD-10-PCS; 2019-04-21 10:00)
DX: I27.22 Pulmonary hypertension due to left heart disease (principal); I20.0 Unstable angina; I50.32 Chronic diastolic (congestive) heart failure; R18.8 Other ascites; Z68.41 Body mass index [BMI] 40.0-44.9, adult; I11.0 Hypertensive heart disease with heart failure; E78.5 Hyperlipidemia, unspecified; K74.60 Unspecified cirrhosis of liver; Z87.891 Personal history of nicotine dependence; I08.3 Combined rheumatic disorders of mitral, aortic and tricuspid valves; E83.41 Hypermagnesemia; D64.9 Anemia, unspecified; E03.9 Hypothyroidism, unspecified; G47.33 Obstructive sleep apnea (adult) (pediatric); E11.40 Type 2 diabetes mellitus with diabetic neuropathy, unspecified; Z79.4 Long term (current) use of insulin; R55 Syncope and collapse; E66.01 Morbid (severe) obesity due to excess calories; K76.0 Fatty (change of) liver, not elsewhere classified; E11.65 Type 2 diabetes mellitus with hyperglycemia; R04.0 Epistaxis; K76.81 Hepatopulmonary syndrome

== ENCOUNTER 2019-11-10 13:46 | Emergency (ER) | payer OTHER ==
[~2019-11-10] VITALS: Ht 149.9 cm; Wt 106.4 kg
[~2019-11-10 13:46] MED LIST changes: +NOVOLOG100 UNIT/1 SQ
[2019-11-10 14:17] VITALS: Ht 149.9 cm; Wt 106.4 kg
[2019-11-10 14:46] LABS: BASOPHILS 0.1 % (0-2); EOSINOPHILS 2.7 % (0-7); HEMATOCRIT 36.7 % (36.0-48.0); HEMOGLOBIN 11.5 g/dL (12-16); IMMATURE GRANULOCYTES 0.2 % (0-5); LYMPHOCYTES 17.9 % (15-50); MCH 29.6 pg (26.0-34.0); MCHC 31.3 g/dL (31.0-37.0); MCV 94.6 fL (80.0-100.0); MEAN PLATELET VOLUME 11.8 fL (7.4-10.4); NEUTROPHILS 71.1 % (40-80); RBC 3.88 10x6/uL (4.00-5.40); RDW 13.6 % (11.5-14.5); WBC 8.6 10x3/uL (4.8-10.8)
[2019-11-10 14:50] LABS: APTT 28.9 SECONDS (22.8-39.4); INR 1.03 (0.85-1.17); PROTIME 13.5 SECONDS (11.6-15.0)
[2019-11-10 14:52] LABS: CALC OSMOLALITY 284 mosm/kg (275-300); CALCIUM 8.6 mg/dL (8.5-10.1); CARBON DIOXIDE 36.2 mmol/L (21.0-32.0); CHLORIDE - SERUM 100 mmol/L (98-107); CREATININE - SERUM 1.3 mg/dL (0.6-1.3); POTASSIUM - SERUM 4.2 mmol/L (3.5-5.1); SODIUM 140 mmol/L (136-145); UREA NITROGEN 22 mg/dL (7-18); eGFR NON AFRICAN AMERICAN 44 mL/min (90-120)
[2019-11-10 14:55] LABS: PLATELET COUNT 226 10x3/uL (130-400)
[2019-11-10 14:56] LABS: GLUCOSE 154 mg/dL (74-106)
[2019-11-10 15:07] LABS: ALBUMIN 3.8 g/dL (3.4-5.0); ALKALINE PHOSPHATASE 96 U/L (30-120); ALT (SGPT) 32 U/L (10-68); BILIRUBIN - TOTAL 0.49 mg/dL (0.2-1.3); CKMB 0.4 U/L (0.0-3.6); CREATINE KINASE 57 UL (21-215); MAGNESIUM - SERUM 2.4 mg/dL (1.8-2.4); PROTEIN - SERUM 7.8 g/dL (6.4-8.2); TROPONIN-I < 0.017 ng/mL (0.000-0.060)
[2019-11-10] MEDS ORDERED: ULTRAM50 MG PO (16:42)
[2019-11-10 17:24] VITALS: BP 133/40
== END 2019-11-10 17:15 | disposition home or self-care (01) ==
LOC: D.ER 13:46
PROVIDERS: Emergency Medicine
DX: R07.9 Chest pain, unspecified (principal); R10.9 Unspecified abdominal pain; I10 Essential (primary) hypertension; E11.40 Type 2 diabetes mellitus with diabetic neuropathy, unspecified; J45.909 Unspecified asthma, uncomplicated; Z79.4 Long term (current) use of insulin

== ENCOUNTER → 2020-01-25 09:35 | Outpatient (CLI) | payer OTHER ==
[2019-11-10 14:17] VITALS: BMI 47.3
[~2020-01-25 09:35] MED LIST changes: +ULTRAM50 MG PO
--- NOTE | 2020-01-26 08:24 | EC ---
PATIENT:NGA LEWIS DATE OF SERVICE: 01/25/20 SEX: F MEDICAL RECORD: [id number] DATE OF : 55 [facility] AGE OF PATIENT: 64 ADMISSION DATE: 01/25/20 REFERRING PHYSICIAN: INTERPRETING PHYSICIAN: JUAN ALTMAN MD ECHOCARDIOGRAM REPORT ECHO CHARGES 4 ECHO COMPLETE Date: 01/25/20 CLINICAL DIAGNOSIS: EDEMA/CARDIOMYOPATHY H/O HTN ECHOCARDIOGRAPHIC MEASUREMENTS (adult normal given) AC root (d.<3.7cm) 2.7 cm LV Septum d (<1.2 cm> 1.3 cm Valve Excursion 1.0 cm LV Septum (systole) 2.0 cm Left Atria (s.<4.0cm> 4.6 cm LVPW d(<1.2cm) 1.1 cm RV (d.<2.3cm) 2.9 cm LVPW (sytole) 1.7 cm LV diastole(<5.6CM) 6.5 cm MV E-F(>70mm/sec) cm LV systole 4.6 cm LVOT Diameter 1.8 cm MV exc.(>10mm) cm Est.ejection fraction (50-75%) % DOPPLER: LVIT cm/sec A 78.0 cm/sec E 138 cm/sec LA cm/sec RVSP 50.0 mmHg LVOT 138 cm/sec AOP1/2T m/s Asc. Ao 207 cm/sec RVOT 62.0 cm/sec RA cm/sec PA 129 cm/sec AV Gradient Peak 17.1 mmHg AV Mean 9.7 mmHg AV Area 1.6 cm MV Gradient Peak 11.0 mmHg MV Mean 2.4 mmHg MV Area cm COMMENTS: OP - HC Bacon De Rinder: 1 RAJENDRA RAMOSOE Water Meter Mechanic: 3 Dr. Coates TAPE# PACS Pericardial Effusion N DATE OF SERVICE: Adequate 2D, color flow imaging, spectral Doppler and M-mode. Borderline LVH. LV internal dimension is normal. Wall motion is normal. EF is greater than or equal to 55%. Aortic valve is sclerotic. There is no evidence of stenosis by Doppler interrogation. Left atrium is dilated at 4.6 cm. Mitral valve shows no prolapse. [id number] MR. Right-sided chambers are grossly normal. Moderate TR. ECHOCARDIOGRAM REPORT [id number] NGA LEWIS TRANSINT:[id number] Voice Confirmation ID: [id number] DOCUMENT ID: [id number] JUAN ALTMAN MD at 0824 CC: [id number] DICTATION DATE: 01/25/20 1459 PACKING LINE WORKER: 01/25/20 2156 DEP CLI 01/25/20 [place] [id number] [place] [id number]
== END | disposition home or self-care (01) ==
LOC: D.HCCECHO 09:35
PROVIDERS: ATTEND Internal Medicine Interventional Cardiology
DX: I42.9 Cardiomyopathy, unspecified (principal)

== ENCOUNTER 2020-03-15 15:30 | Emergency (ER) | payer OTHER ==
[~2020-03-15] VITALS: Ht 149.9 cm; Wt 100.9 kg
[2020-03-15 15:38] VITALS: Ht 149.9 cm; Wt 100.9 kg
[2020-03-15 16:06] LABS: BASOPHILS 0.2 % (0-2); EOSINOPHILS 2.9 % (0-7); HEMATOCRIT 41.2 % (36.0-48.0); HEMOGLOBIN 13.2 g/dL (12-16); IMMATURE GRANULOCYTES 0.5 % (0-5); LYMPHOCYTES 17.9 % (15-50); MCH 29.5 pg (26.0-34.0); MCV 92.2 fL (80.0-100.0); MONOCYTES 8.1 % (2-11); NEUTROPHILS 70.4 % (40-80); PLATELET COUNT 224 10x3/uL (130-400); RBC 4.47 10x6/uL (4.00-5.40); RDW 14.1 % (11.5-14.5)
[2020-03-15 16:25] LABS: ANION GAP 12.7 mmol/L (8-16); CALCIUM 8.6 mg/dL (8.5-10.1); CARBON DIOXIDE 30.8 mmol/L (21.0-32.0); CREATININE - SERUM 1.4 mg/dL (0.6-1.3); POTASSIUM - SERUM 4.5 mmol/L (3.5-5.1)
[2020-03-15 16:29] LABS: BILIRUBIN NEGATIVE (NEGATIVE); GLUCOSE NEGATIVE (NEGATIVE); KETONE NEGATIVE (NEGATIVE); NITRITE NEGATIVE (NEGATIVE); UROBILINOGEN NORMAL (NORMAL)
[2020-03-15 16:30] LABS: ALBUMIN 3.7 g/dL (3.4-5.0); BILIRUBIN - TOTAL 0.53 mg/dL (0.2-1.3)
[2020-03-15 17:08] VITALS: BP 123/42
== END 2020-03-15 17:11 | disposition home or self-care (01) ==
LOC: D.ER 15:30
PROVIDERS: Family Medicine
DX: E11.65 Type 2 diabetes mellitus with hyperglycemia (principal); E11.22 Type 2 diabetes mellitus with diabetic chronic kidney disease; N18.9 Chronic kidney disease, unspecified; Z79.4 Long term (current) use of insulin; J44.9 Chronic obstructive pulmonary disease, unspecified

== ENCOUNTER → 2020-04-25 08:39 | Outpatient (CLI) | payer OTHER ==
[2020-03-15 15:38] VITALS: BMI 44.9
== END | disposition home or self-care (01) ==
LOC: D.US 04-17 10:30 → D.RAD 04-17 11:00 → D.US 04-18 10:30
PROVIDERS: ATTEND Internal Medicine Gastroenterology
DX: K59.00 Constipation, unspecified (principal); R10.84 Generalized abdominal pain; R63.5 Abnormal weight gain; K76.0 Fatty (change of) liver, not elsewhere classified

== ENCOUNTER → 2020-05-08 07:53 | Outpatient (CLI) | payer OTHER ==
[2020-03-15 15:38] VITALS: BMI 44.9
== END | disposition home or self-care (01) ==
LOC: D.RAD 04-25 11:00
PROVIDERS: ATTEND Internal Medicine Gastroenterology
DX: K59.00 Constipation, unspecified (principal); R10.84 Generalized abdominal pain; R63.5 Abnormal weight gain

== ENCOUNTER 2020-05-29 15:19 | Emergency (ER) | payer OTHER ==
[~2020-05-29] VITALS: Ht 149.9 cm; Wt 104.5 kg
[2020-05-29 15:37] VITALS: Ht 149.9 cm; Wt 104.5 kg
[2020-05-29 16:15] LABS: CALC OSMOLALITY 281 mosm/kg (275-300); CALCIUM 8.3 mg/dL (8.5-10.1); CARBON DIOXIDE 31.4 mmol/L (21.0-32.0); CHLORIDE - SERUM 102 mmol/L (98-107); CREATININE - SERUM 1.4 mg/dL (0.6-1.3); GLUCOSE 207 mg/dL (74-106); POTASSIUM - SERUM 4.4 mmol/L (3.5-5.1); SODIUM 137 mmol/L (136-145); UREA NITROGEN 19 mg/dL (7-18); eGFR NON AFRICAN AMERICAN 40 mL/min (90-120)
[2020-05-29 16:20] LABS: APTT 30.4 SECONDS (22.8-39.4); BASOPHILS 0.2 % (0-2); EOSINOPHILS 2.5 % (0-7); HEMATOCRIT 36.9 % (36.0-48.0); HEMOGLOBIN 11.5 g/dL (12-16); IMMATURE GRANULOCYTES 0.6 % (0-5); INR 1.12 (0.85-1.17); LYMPHOCYTES 13.6 % (15-50); MCH 29.2 pg (26.0-34.0); MCHC 31.2 g/dL (31.0-37.0); MCV 93.7 fL (80.0-100.0); MEAN PLATELET VOLUME 11.1 fL (7.4-10.4); MONOCYTES 7.9 % (2-11); NEUTROPHILS 75.2 % (40-80); PLATELET COUNT 209 10x3/uL (130-400); PROTIME 14.3 SECONDS (11.6-15.0); RBC 3.94 10x6/uL (4.00-5.40); RDW 14.2 % (11.5-14.5); WBC 8.9 10x3/uL (4.8-10.8)
[2020-05-29 16:31] LABS: ALBUMIN 3.6 g/dL (3.4-5.0); ALKALINE PHOSPHATASE 99 U/L (30-120); ALT (SGPT) 24 U/L (10-68); BILIRUBIN - TOTAL 0.49 mg/dL (0.2-1.3); CKMB 0.6 U/L (0.0-3.6); CREATINE KINASE 38 UL (21-215); MAGNESIUM - SERUM 2.5 mg/dL (1.8-2.4); PROTEIN - SERUM 7.6 g/dL (6.4-8.2); THYROID STIMULATING HORMONE 1.19 uIU/mL (0.36-3.74)
[2020-05-29 16:33] LABS: TROPONIN-I < 0.017 ng/mL (0.000-0.060)
[2020-05-29] MEDS ORDERED: PREDNISONE20 MG PO (16:58)
[2020-05-29] MEDS ORDERED: VALTREX1000 MG PO (16:58)
[2020-05-29 17:48] VITALS: BP 142/51
== END 2020-05-29 17:48 | disposition home or self-care (01) ==
LOC: D.ER 15:19
PROVIDERS: Family Medicine
DX: G51.0 Bell's palsy (principal); E11.65 Type 2 diabetes mellitus with hyperglycemia; E11.22 Type 2 diabetes mellitus with diabetic chronic kidney disease; N18.9 Chronic kidney disease, unspecified; E83.41 Hypermagnesemia; E83.51 Hypocalcemia; J44.9 Chronic obstructive pulmonary disease, unspecified; Z79.4 Long term (current) use of insulin

== ENCOUNTER 2020-06-09 11:15 | Day surgery (SDC) | payer OTHER ==
[~2020-06-09] VITALS: Ht 149.9 cm; Wt 96.8 kg
[~2020-06-09 11:15] MED LIST changes: +PREDNISONE20 MG PO; +VALTREX1000 MG PO
[2020-06-09 12:05] LABS: ANION GAP 9.2 mmol/L (8-16); CALCIUM 8.8 mg/dL (8.5-10.1); CARBON DIOXIDE 31.5 mmol/L (21.0-32.0); CREATININE - SERUM 1.1 mg/dL (0.6-1.3); POTASSIUM - SERUM 4.7 mmol/L (3.5-5.1)
[2020-06-09 12:16] LABS: BASOPHILS 0.1 % (0-2); EOSINOPHILS 2.8 % (0-7); HEMATOCRIT 40.7 % (36.0-48.0); HEMOGLOBIN 12.9 g/dL (12-16); IMMATURE GRANULOCYTES 0.4 % (0-5); LYMPHOCYTES 14.6 % (15-50); MCH 29.8 pg (26.0-34.0); MCHC 31.7 g/dL (31.0-37.0); MEAN PLATELET VOLUME 11.5 fL (7.4-10.4); MONOCYTES 5.5 % (2-11); NEUTROPHILS 76.6 % (40-80); PLATELET COUNT 212 10x3/uL (130-400); RBC 4.33 10x6/uL (4.00-5.40); RDW 14.8 % (11.5-14.5); WBC 10.6 10x3/uL (4.8-10.8)
[2020-06-09 13:24] VITALS: BP 148/39; Ht 149.9 cm; Wt 96.8 kg
--- NOTE | 2020-06-09 15:40 | NUR ---
DISCHARGE INSTRUCTIONS REVIEWED WITH PATIENT AND SPOUSE. DISCHARGED HOME VIA WHEELCHAIR TO PRIVATE VEHICLE WITH SON
--- NOTE | 2020-06-10 17:57 | OP ---
PATIENT NAME: NGA LEWIS MEDICAL RECORD: [id number] :55 LOCATION:D.OPS ADMISSION DATE: SURGEON: PILAR MCINTOSH DO DATE OF OPERATION: 06/09/2020 PROCEDURE: Colonoscopy. INDICATIONS FOR PROCEDURE: Chronic constipation, generalized abdominal pain, and positive Cologuard test. SCOPE: Olympus video pediatric colonoscope. MEDICATIONS: Propofol 380 mg IV per anesthesia. WITHDRAWAL TIME: 12 minutes. ESTIMATED BLOOD LOSS: None. COMPLICATIONS: None. FINDINGS: Informed consent was given. The patient was made comfortable with the above medication. After reaching an adequate level of sedation by slow IV push, the patient was placed on her left side. A digital rectal examination was performed and was normal. The endoscope was then advanced under direct visualization through the rectum to the cecum and terminal ileum. The endoscope was slowly withdrawn and mucosa was carefully examined. The prep quality was good. There were no polyps visualized on today's examination. There was evidence of a prior surgery involving the sigmoid colon with some retained sutures or maria isabel. Retroflexion was performed in the rectum with visualization of grade I internal hemorrhoids without bleeding. The endoscope was then withdrawn from the patient. The patient tolerated the procedure well and there were no complications. IMPRESSION: 1. Evidence of a prior surgery involving the sigmoid colon. 2. Grade I internal hemorrhoids without bleeding. PLAN AND RECOMMENDATIONS: 1. Discharge home when recovery parameters are met. 2. Follow up biopsy specimen results. 3. High fiber diet. 4. Continue current medications. 5. Recall colonoscopy in 5 years. TRANSINT:[id number] Voice Confirmation ID: [id number] DOCUMENT ID: [id number] PILAR MCINTOSH DO at 1757 CC: [id number] DICTATION DATE: 06/09/20 1445 FLEET SALES ASSOCIATE: 06/10/20 0216 [facility] 06/09/20 [place] [id number] [place] [address]
== END 2020-06-09 15:40 | disposition home or self-care (01) ==
LOC: D.OPS 11:15
PROVIDERS: Anesthesiology; ATTEND Internal Medicine Gastroenterology
DX: K59.09 Other constipation (principal); R10.84 Generalized abdominal pain; K64.0 First degree hemorrhoids; I10 Essential (primary) hypertension; E11.9 Type 2 diabetes mellitus without complications; I51.9 Heart disease, unspecified

== ENCOUNTER 2020-11-17 11:59 | Inpatient (IN) | payer OTHER ==
[~2020-11-17] VITALS: Ht 149.9 cm; Wt 103.0 kg
--- NOTE | 2020-11-17 12:21 | NUR ---
URINE COLLECTED AND SENT TO LAB.
[2020-11-17 12:53] LABS: BASOPHILS 0.1 % (0-2); EOSINOPHILS 2.4 % (0-7); HEMATOCRIT 39.3 % (36.0-48.0); HEMOGLOBIN 12.4 g/dL (12-16); IMMATURE GRANULOCYTES 0.5 % (0-5); LYMPHOCYTE ABS# 1.84 10x3/uL (1.18-3.74); LYMPHOCYTES 17.5 % (15-50); MCH 29.6 pg (26.0-34.0); MCHC 31.6 g/dL (31.0-37.0); MCV 93.8 fL (80.0-100.0); MEAN PLATELET VOLUME 11.5 fL (7.4-10.4); MONOCYTES 7.5 % (2-11); NEUTROPHIL ABS# 7.57 10x3/uL (1.56-6.13); PLATELET COUNT 223 10x3/uL (130-400); RBC 4.19 10x6/uL (4.00-5.40); RDW 14.3 % (11.5-14.5); WBC 10.5 10x3/uL (4.8-10.8)
[2020-11-17 12:54] LABS: APTT 29.3 SECONDS (22.8-39.4); INR 1.05 (0.85-1.17); PROTIME 12.6 SECONDS (11.6-15.0)
[2020-11-17 13:04] LABS: ALBUMIN 3.9 g/dL (3.4-5.0); ALKALINE PHOSPHATASE 111 U/L (30-120); ALT (SGPT) 34 U/L (10-68); BILIRUBIN - TOTAL 0.42 mg/dL (0.2-1.3); CARBON DIOXIDE 30.6 mmol/L (21.0-32.0); CHLORIDE - SERUM 99 mmol/L (98-107); CKMB 0.4 U/L (0.0-3.6); CREATINE KINASE 126 UL (21-215); CREATININE - SERUM 2.7 mg/dL (0.6-1.3); PRO BNP 200 pg/mL (0-125); PROTEIN - SERUM 8.2 g/dL (6.4-8.2); SODIUM 133 mmol/L (136-145); TROPONIN-I < 0.017 ng/mL (0.000-0.060); UREA NITROGEN 76 mg/dL (7-18); eGFR NON AFRICAN AMERICAN 19 mL/min (90-120)
[2020-11-17 13:05] LABS: CALC OSMOLALITY 292 mosm/kg (275-300); GLUCOSE 174 mg/dL (74-106)
[2020-11-17 13:06] LABS: POTASSIUM - SERUM 6.9 mmol/L (3.5-5.1)
[2020-11-17 14:30] VITALS: BP 113/32
[2020-11-17 17:29] VITALS: BP 134/42
--- NOTE | 2020-11-17 18:25 | NUR ---
PT TO ROOM FROM ER ON CART, ASSIST TO TRANSFER TO BED. AT BEDSIDE (CURRENTLY WORKING) AND ANOTHER FAMILY MEMBER TO STAY FOR NOW. RT PLACED PT ON BIPAP. ZUNIGA IN PLACE. IV INFUSING ON ARRIVAL.
[2020-11-17] MEDS ORDERED: OXYBUTYNIN CHLOR5 MG PO (18:32)
[2020-11-17] MEDS ORDERED: CHRONULAC30 ML PO (18:36)
[2020-11-17] MEDS ORDERED: BASAGLAR K100 UNIT/1 SC (18:39)
--- NOTE | 2020-11-17 19:45 | NUR ---
RECEIVED REPORT, WILL ASSUME CARE OF PT, EATING A SANDWICH, AND VISITING WITH FAMILY, DENIES ANY NEEDS AT THIS TIME, BED IS LOW, SRX2, CALL LIGHT IN REACH, WILL CONTINUE PLAN OF CARE
[2020-11-17 21:50] LABS: ANION GAP 13.6 mmol/L (8-16); CALCIUM 8.3 mg/dL (8.5-10.1); CARBON DIOXIDE 30.2 mmol/L (21.0-32.0); CREATININE - SERUM 2.4 mg/dL (0.6-1.3)
[2020-11-17 21:54] VITALS: BP 133/64
[2020-11-17 21:55] LABS: POTASSIUM - SERUM 6.8 mmol/L (3.5-5.1)
--- NOTE | 2020-11-17 22:07 | NUR ---
SPOKE WITH MARIBELL k+6.8, WAS TOLD TO CALL RENAL. PAGED RENAL WAITING FOR CALL BACK
[2020-11-18 00:05] VITALS: BP 133/64; BMI 45.9
[2020-11-18 00:28] LABS: ANION GAP 14.2 mmol/L (8-16); CARBON DIOXIDE 29.9 mmol/L (21.0-32.0); CREATININE - SERUM 2.6 mg/dL (0.6-1.3)
[2020-11-18 00:29] LABS: POTASSIUM - SERUM 6.1 mmol/L (3.5-5.1)
[2020-11-18 00:52] VITALS: BP 134/33
[2020-11-18 05:15] LABS: BASOPHILS 0.1 % (0-2); EOSINOPHILS 0 % (0-7); HEMATOCRIT 37.2 % (36.0-48.0); HEMOGLOBIN 11.9 g/dL (12-16); IMMATURE GRANULOCYTES 0.5 % (0-5); LYMPHOCYTE ABS# 0.77 10x3/uL (1.18-3.74); LYMPHOCYTES 5.1 % (15-50); MCH 29.9 pg (26.0-34.0); MCV 93.5 fL (80.0-100.0); MEAN PLATELET VOLUME 11.5 fL (7.4-10.4); MONOCYTES 0.5 % (2-11); NEUTROPHIL ABS# 14.18 10x3/uL (1.56-6.13); NEUTROPHILS 93.8 % (40-80); PLATELET COUNT 217 10x3/uL (130-400); RBC 3.98 10x6/uL (4.00-5.40); RDW 14.1 % (11.5-14.5)
[2020-11-18 05:18] VITALS: BP 124/48
[2020-11-18 05:18] LABS: WBC 15.1 10x3/uL (4.8-10.8)
[2020-11-18 05:24] LABS: INR 1.17 (0.85-1.17); PROTIME 13.8 SECONDS (11.6-15.0)
[2020-11-18 05:58] LABS: ALBUMIN 3.5 g/dL (3.4-5.0); ANION GAP 11.9 mmol/L (8-16); BILIRUBIN - TOTAL 0.36 mg/dL (0.2-1.3); CALCIUM 8.5 mg/dL (8.5-10.1); CARBON DIOXIDE 31.4 mmol/L (21.0-32.0); CREATININE - SERUM 2.6 mg/dL (0.6-1.3); POTASSIUM - SERUM 5.3 mmol/L (3.5-5.1); PROTEIN - SERUM 7.6 g/dL (6.4-8.2)
[2020-11-18 07:00] VITALS: BP 106/39
[2020-11-18 07:20] LABS: BILIRUBIN NEGATIVE (NEGATIVE); KETONE NEGATIVE (NEGATIVE); NITRITE NEGATIVE (NEGATIVE); UROBILINOGEN NORMAL mg/dL (< 2)
[2020-11-18 07:21] LABS: SQUAMOUS EPITHELIAL 0-5 HPF (0-4); WHITE CELLS - URINE 0-5 HPF (0-4)
[2020-11-18 07:22] LABS: BACTERIA MODERATE HPF (NONE SEEN)
[2020-11-18 12:56] VITALS: Ht 149.9 cm; Wt 103.0 kg
[2020-11-18 14:00] LABS: ANION GAP 12.7 mmol/L (8-16); CALCIUM 7.7 mg/dL (8.5-10.1); CARBON DIOXIDE 28.1 mmol/L (21.0-32.0); CREATININE - SERUM 2.3 mg/dL (0.6-1.3); POTASSIUM - SERUM 5.8 mmol/L (3.5-5.1)
[2020-11-18 15:55] VITALS: BP 137/55
[2020-11-18 20:00] VITALS: BP 121/46
[2020-11-19 04:00] VITALS: BP 120/49; BP 135/88
[2020-11-19 04:53] LABS: BASOPHILS 0 % (0-2); EOSINOPHILS 0.2 % (0-7); HEMATOCRIT 34.5 % (36.0-48.0); HEMOGLOBIN 11.2 g/dL (12-16); IMMATURE GRANULOCYTES 0.4 % (0-5); LYMPHOCYTE ABS# 1.16 10x3/uL (1.18-3.74); LYMPHOCYTES 8.7 % (15-50); MCHC 32.5 g/dL (31.0-37.0); MCV 92.5 fL (80.0-100.0); MEAN PLATELET VOLUME 11.6 fL (7.4-10.4); MONOCYTES 7.2 % (2-11); NEUTROPHIL ABS# 11.08 10x3/uL (1.56-6.13); NEUTROPHILS 83.5 % (40-80); PLATELET COUNT 198 10x3/uL (130-400); RBC 3.73 10x6/uL (4.00-5.40); RDW 14.2 % (11.5-14.5); WBC 13.3 10x3/uL (4.8-10.8)
--- NOTE | 2020-11-19 05:08 | NUR ---
I have reviewed this patient and I concur with the Shift Assessment completed by the Licensed Practical Nurse today this shift.
[2020-11-19 06:22] LABS: ALBUMIN 3.4 g/dL (3.4-5.0); ANION GAP 10.9 mmol/L (8-16); BILIRUBIN - TOTAL 0.27 mg/dL (0.2-1.3); CARBON DIOXIDE 29.7 mmol/L (21.0-32.0); CREATININE - SERUM 1.8 mg/dL (0.6-1.3)
[2020-11-19 06:25] LABS: POTASSIUM - SERUM 4.6 mmol/L (3.5-5.1)
[2020-11-19 07:00] VITALS: BP 132/48
[2020-11-19 17:13] VITALS: BP 133/42
[2020-11-19 20:00] VITALS: BP 133/65
--- NOTE | 2020-11-19 20:00 | NUR ---
INITIAL ROUNDS AND ASSESSMENT COMPLETED. PT RESTING WITH NO DISTRESS. NO TELEMETRY ON, PT STATES TOLD HER SHE DID NOT HAVE TO WEAR IT. O2 @ 3L/NC WITH NONLABORED RESPIRATIONS. CPOC. CALL LIGHT IN REACH.
[2020-11-20 03:30] VITALS: BP 146/51
[2020-11-20 04:45] LABS: BASOPHILS 0.1 % (0-2); EOSINOPHILS 1.3 % (0-7); HEMATOCRIT 37.1 % (36.0-48.0); HEMOGLOBIN 11.8 g/dL (12-16); IMMATURE GRANULOCYTES 0.3 % (0-5); LYMPHOCYTE ABS# 1.82 10x3/uL (1.18-3.74); LYMPHOCYTES 17.4 % (15-50); MCH 29.4 pg (26.0-34.0); MCHC 31.8 g/dL (31.0-37.0); MCV 92.5 fL (80.0-100.0); MEAN PLATELET VOLUME 11.8 fL (7.4-10.4); MONOCYTES 8.1 % (2-11); NEUTROPHIL ABS# 7.62 10x3/uL (1.56-6.13); NEUTROPHILS 72.8 % (40-80); PLATELET COUNT 201 10x3/uL (130-400); RBC 4.01 10x6/uL (4.00-5.40); RDW 14.1 % (11.5-14.5); WBC 10.5 10x3/uL (4.8-10.8)
[2020-11-20 05:11] LABS: ALBUMIN 3.7 g/dL (3.4-5.0); ANION GAP 9.6 mmol/L (8-16); BILIRUBIN - TOTAL 0.33 mg/dL (0.2-1.3); CARBON DIOXIDE 32.5 mmol/L (21.0-32.0); CREATININE - SERUM 1.4 mg/dL (0.6-1.3); POTASSIUM - SERUM 4.1 mmol/L (3.5-5.1); PROTEIN - SERUM 7.4 g/dL (6.4-8.2)
[2020-11-20 08:00] VITALS: BP 192/68
[2020-11-20 11:00] VITALS: BP 166/60
--- NOTE | 2020-11-20 11:46 | NUR ---
PT STATED SHE WAS GIVEN THE 0800 DOSE OF LANTUS INSULIN ON THE 7 PM TO 7 AM SHIFT 11/20/20 PRIOR TO MY SHIFT.. PT'S 1130 BLOOD SUGAR WAS 174.
[2020-11-20] MEDS ORDERED: LEVOFLOXACIN500 MG PO (11:55)
--- NOTE | 2020-11-20 12:22 | NUR ---
I have reviewed this patient and I concur with the Shift Assessment completed by the Licensed Practical Nurse today this shift.
[2020-11-20 12:35] VITALS: BP 192/68
[2020-11-20 12:43] VITALS: BP 192/68
== END 2020-11-20 14:35 | disposition home or self-care (01) | DRG 291 ==
LOC: D.ER 11:59 → D.M2 14:40 → D.EDHOLD 14:40 → D.M2 15:58
PROVIDERS: Family Medicine; Internal Medicine; Internal Medicine Nephrology; ADMIT Emergency Medicine; ATTEND Emergency Medicine
DX: I50.9 Heart failure, unspecified (principal); N17.0 Acute kidney failure with tubular necrosis; N39.0 Urinary tract infection, site not specified; Z68.42 Body mass index [BMI] 45.0-49.9, adult; E87.1 Hypo-osmolality and hyponatremia; E87.5 Hyperkalemia; E11.65 Type 2 diabetes mellitus with hyperglycemia; E83.41 Hypermagnesemia; I25.10 Atherosclerotic heart disease of native coronary artery without angina pectoris; J44.9 Chronic obstructive pulmonary disease, unspecified; G47.33 Obstructive sleep apnea (adult) (pediatric); M79.7 Fibromyalgia; K57.90 Diverticulosis of intestine, part unspecified, without perforation or abscess without bleeding; M81.0 Age-related osteoporosis without current pathological fracture; E66.9 Obesity, unspecified; E11.22 Type 2 diabetes mellitus with diabetic chronic kidney disease; N18.9 Chronic kidney disease, unspecified